=== PATIENT | female | born 1960 ===

== ENCOUNTER 2020-06-01 18:27 | Inpatient (IN) | payer OTHER, SELFPAY ==
--- NOTE | 2020-06-01 18:30 | ED.SOB ---
HPI - SOB/Dyspnea General Chief Complaint: General Medical Stated Complaint: COUGH,DIFF SWALLOWING Time Seen by Provider: 06/01/20 18:29 Source: EMS Mode of arrival: EMS Limitations: language barrier History of Present Illness HPI Narrative: cough for 3 days, concerned that she has been choking as well Related Data Home Medications Medication Instructions Recorded Confirmed acetaminophen 650 mg PO Q6H PRN 06/02/20 06/02/20 acetaminophen 975 mg PO TID 06/02/20 06/02/20 amlodipine 10 mg PO DAILY 06/02/20 06/02/20 baclofen 5 mg PO BID 06/02/20 06/02/20 bisacodyl 10 mg OK DAILY PRN 06/02/20 06/02/20 calcium acetate 1,334 mg PO TID 06/02/20 06/02/20 carvedilol [Coreg] 12.5 mg PO BID 06/02/20 06/02/20 cefazolin in 0.9% sod chloride 100 ml IV BID 06/02/20 06/02/20 dextrose [Glucose Gel] 15 g PO Q15M PRN 06/02/20 06/02/20 diphenhydramine HCl 25 mg PO TID PRN 06/02/20 06/02/20 famotidine 20 mg PO BID 06/02/20 06/02/20 fexofenadine 180 mg PO DAILY 06/02/20 06/02/20 furosemide [Lasix] 20 mg PO DAILY 06/02/20 06/02/20 glucagon 1 mg NEEDED 06/02/20 06/02/20 hydroxyzine HCl 25 mg PO TID 06/02/20 06/02/20 magnesium hydroxide [Milk of 10 ml PO DAILY PRN 06/02/20 06/02/20 Magnesia] melatonin 5 mg PO BEDTIME 06/02/20 06/02/20 omeprazole [Prilosec] 20 mg PO BID 06/02/20 06/02/20 ondansetron 4 mg PO Q6H PRN 06/02/20 06/02/20 polyethylene glycol 3350 [Miralax] 17 g PO DAILY 06/02/20 06/02/20 sennosides [senna] 8.6 mg PO DAILY PRN 06/02/20 06/02/20 sertraline [Zoloft] 50 mg PO DAILY 06/02/20 06/02/20 sodium bicarbonate 650 mg PO TID 06/02/20 06/02/20 sodium phosphates [Fleet Enema] 118 ml OK DAILY PRN 06/02/20 06/02/20 Allergies Allergy/AdvReac Type Severity Reaction Status Date / Time No Known Allergies Allergy Verified 06/01/20 19:04 Review of Systems Review of Systems: unable to obtain review of systems secondary to language barrier and patients baseline mentation Neurologic: Denies Sensory deficit (Neuro) [facility] Past Medical History Medical History (Updated 06/09/20 @ 15:18 by Kemar Amaral MD) Acute bullous dermatitis End stage renal failure untreated by renal replacement therapy Klebsiella sepsis 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 Social History Social History Household Members: Unknown / Unable to assess Housing: Unknown / Unable to assess Alcohol intake: unknown Smoking Status: Unknown if ever smoked Use of substances other than those prescribed or required for medical reasons: Unknown Currently Displaying Signs/Symptoms of Drug Intoxication Withdrawal: No Spiritual Healthcare Practices: unable to assess Hindu Healthcare Practices: unable to assess Cultural Healthcare Practices: unable to assess Advance Directives: No Advance Directives Information Provided: No Do you have thoughts of harming others: None Do you have a plan to hurt others: No Plan Recently lost weight without trying: Unsure service: No Current occupational status: unemployed Physical Exam Vital Signs: Vital Signs: Vital Signs Temp Pulse Resp BP Pulse Ox 06/01/20 18:58 98.6 F 104 H 18 147/75 H 100 Body Mass Index 58.6 Const: Other: female looking chronically ill much older than stated age right chest central line in place Limitations: behavioral limitations and language barrier HENMT: Head: Yes normal to inspection Ears: external ears normal General nose exam: Normal external nose present Mouth: Normal oral and palatal mucosa present and oropharynx normal Throat: Yes posterior oropharynx normal Eyes: General: appearance normal, both eyes and all related structures Neck: Other: supple Neck: Yes normal visual inspection Chest: Chest palpation & inspection: normal inspection of the chest Resp: Auscultation: clear to auscultation bilaterally Cardio: Jugular venous distension: no JVD Rate: regular rate Rhythm: regular rhythm Heart sounds: S1 normal heart sound present and S2 normal heart sound present GI: Inspection: Yes normal to inspection Palpation (GI): Soft to palpation, nontender and No hepatosplenomegaly present Auscultation: normal bowel sounds : General: Yes no CVA tenderness Back/Spine/Pelvis: Back: no CVA tenderness Skin: Other: diffuse excoriation and chronic skin changes Neuro: Cranial nerves: Yes CN's II-XII intact bilaterally Motor exam (neuro): 5/5 motor strength present throughout Sensory Exam: No Sensory deficit (Neuro) Extrem: General: Yes normal to inspection Psych: Appearance: grossly normal Course Course Course Narrative: patient signed out to dr. 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 will check labs, patient is a diabetic with renal failure and check xray and covid. Will likely dc home Lab Data Result diagrams: 06/09/20 08:25 06/08/20 16:47 Labs: Lab Results 06/01/20 06/02/20 06/02/20 Range/Units 20:19 00:42 00:42 WBC 10.1 (4.8-10.8) X10*3/uL RBC 3.97 L (4.20-5.50) X10*6/uL Hgb 11.0 L (12.0-16.0) g/dl Hct 38.1 (37-47) % MCV 96.0 (80-98) fL MCH 27.7 (27.0-33.0) pg MCHC 28.9 L (31.0-35.0) g/dl RDW 18.1 H (11.0-16.0) % Plt Count 346 (160-400) X10*3/uL MPV 11.9 (9.4-12.3) fL Immature Gran % (Auto) 4.2 H (0.0-0.4) % Neut % (Auto) 55.8 (45-73) % Lymph % (Auto) 16.5 L (20-40) % [place] % (Auto) 11.5 H (2-11) % Eos % (Auto) 11.0 H (0-4) % Baso % (Auto) 1.0 (0-2) % Lymph # (Auto) 1.7 (1.2-4.9) X10*3/uL [place] # (Auto) 1.2 (0.1-1.2) X10*3/uL Eos # (Auto) 1.1 H (0.0-0.4) X10*3/uL Baso # (Auto) 0.1 (0.0-0.2) X10*3/uL Abs Immat Gran (auto) 0.42 H (0.00-0.03) X10*3/uL Absolute Neuts (auto) 5.7 (2.0-8.3) X10*3/uL Absolute Nucleated RBC 0.000 (0.0-0.012) X10*3/uL Nucleated RBC % (auto) 0.0 (0.0-0.2) /100WBC ABG pH (7.35-7.45) ABG pCO2 (32-45) mmhg ABG pO2 (83-108) mmhg ABG HCO3 (22-26) mmol/l ABG O2 Saturation % ABG Base Excess Oxygen Given Sodium 145 (135-145) mmol/L Potassium 6.3 H* (3.3-5.1) mmol/l Chloride 118 H (96-108) mmol/L Carbon Dioxide < 5 L* (22-29) mmol/L Anion Gap TNP BUN 64 H (9-16) mg/dL Creatinine 6.16 H* (0.5-1.4) mg/dL Estim Creat Clear Calc 15.4 Estimated GFR 7 Random Glucose 98 (60-115) mg/dL Lactic Acid (0.5-2.0) mmol/L Calcium 8.2 L (8.4-10.2) mg/dL Magnesium Beta-Hydroxybutyrate/Acetoacetate mmol/L Coronavirus (PCR) (Negative) COVID-19 PCR NOT DETECTED (NOT DETECTED) SARS-CoV-2 IgG Ab (Negative) 06/02/20 06/02/20 06/02/20 Range/Units 02:04 02:04 02:18 WBC (4.8-10.8) X10*3/uL RBC (4.20-5.50) X10*6/uL Hgb (12.0-16.0) g/dl Hct (37-47) % MCV (80-98) fL MCH (27.0-33.0) pg MCHC (31.0-35.0) g/dl RDW (11.0-16.0) % Plt Count (160-400) X10*3/uL MPV (9.4-12.3) fL Immature Gran % (Auto) (0.0-0.4) % Neut % (Auto) (45-73) % Lymph % (Auto) (20-40) % [place] % (Auto) (2-11) % Eos % (Auto) (0-4) % Baso % (Auto) (0-2) % Lymph # (Auto) (1.2-4.9) X10*3/uL [place] # (Auto) (0.1-1.2) X10*3/uL Eos # (Auto) (0.0-0.4) X10*3/uL Baso # (Auto) (0.0-0.2) X10*3/uL Abs Immat Gran (auto) (0.00-0.03) X10*3/uL Absolute Neuts (auto) (2.0-8.3) X10*3/uL Absolute Nucleated RBC (0.0-0.012) X10*3/uL Nucleated RBC % (auto) (0.0-0.2) /100WBC ABG pH 7.13 L* (7.35-7.45) ABG pCO2 11 L* (32-45) mmhg ABG pO2 135 H (83-108) mmhg ABG HCO3 4 L (22-26) mmol/l ABG O2 Saturation 98.3 % ABG Base Excess -23.5 Oxygen Given ROOM AIR Sodium Cancelled (135-145) mmol/L Potassium Cancelled (3.3-5.1) mmol/l Chloride Cancelled (96-108) mmol/L Carbon Dioxide Cancelled (22-29) mmol/L Anion Gap Cancelled BUN Cancelled (9-16) mg/dL Creatinine Cancelled (0.5-1.4) mg/dL Estim Creat Clear Calc Cancelled Estimated GFR Cancelled Random Glucose Cancelled (60-115) mg/dL Lactic Acid 1.8 (0.5-2.0) mmol/L Calcium Cancelled (8.4-10.2) mg/dL Magnesium Cancelled Beta-Hydroxybutyrate/Acetoacetate mmol/L Coronavirus (PCR) (Negative) COVID-19 PCR (NOT DETECTED) SARS-CoV-2 IgG Ab (Negative) 06/02/20 06/02/20 06/02/20 Range/Units 03:00 03:00 04:44 WBC (4.8-10.8) X10*3/uL RBC (4.20-5.50) X10*6/uL Hgb (12.0-16.0) g/dl Hct (37-47) % MCV (80-98) fL MCH (27.0-33.0) pg MCHC (31.0-35.0) g/dl RDW (11.0-16.0) % Plt Count (160-400) X10*3/uL MPV (9.4-12.3) fL Immature Gran % (Auto) (0.0-0.4) % Neut % (Auto) (45-73) % Lymph % (Auto) (20-40) % [place] % (Auto) (2-11) % Eos % (Auto) (0-4) % Baso % (Auto) (0-2) % Lymph # (Auto) (1.2-4.9) X10*3/uL [place] # (Auto) (0.1-1.2) X10*3/uL Eos # (Auto) (0.0-0.4) X10*3/uL Baso # (Auto) (0.0-0.2) X10*3/uL Abs Immat Gran (auto) (0.00-0.03) X10*3/uL Absolute Neuts (auto) (2.0-8.3) X10*3/uL Absolute Nucleated RBC (0.0-0.012) X10*3/uL Nucleated RBC % (auto) (0.0-0.2) /100WBC ABG pH (7.35-7.45) ABG pCO2 (32-45) mmhg ABG pO2 (83-108) mmhg ABG HCO3 (22-26) mmol/l ABG O2 Saturation % ABG Base Excess Oxygen Given Sodium 146 H (135-145) mmol/L Potassium 6.5 H* (3.3-5.1) mmol/l Chloride 119 H (96-108) mmol/L Carbon Dioxide < 5 L* (22-29) mmol/L Anion Gap TNP BUN 66 H (9-16) mg/dL Creatinine 6.42 H* (0.5-1.4) mg/dL Estim Creat Clear Calc 14.8 Estimated GFR 7 Random Glucose 111 (60-115) mg/dL Lactic Acid (0.5-2.0) mmol/L Calcium 8.1 L (8.4-10.2) mg/dL Magnesium 2.3 Beta-Hydroxybutyrate/Acetoacetate 0.84 H mmol/L Coronavirus (PCR) (Negative) COVID-19 PCR (NOT DETECTED) SARS-CoV-2 IgG Ab Positive (Negative) 06/02/20 Range/Units 04:58 WBC (4.8-10.8) X10*3/uL RBC (4.20-5.50) X10*6/uL Hgb (12.0-16.0) g/dl Hct (37-47) % MCV (80-98) fL MCH (27.0-33.0) pg MCHC (31.0-35.0) g/dl RDW (11.0-16.0) % Plt Count (160-400) X10*3/uL MPV (9.4-12.3) fL Immature Gran % (Auto) (0.0-0.4) % Neut % (Auto) (45-73) % Lymph % (Auto) (20-40) % [place] % (Auto) (2-11) % Eos % (Auto) (0-4) % Baso % (Auto) (0-2) % Lymph # (Auto) (1.2-4.9) X10*3/uL [place] # (Auto) (0.1-1.2) X10*3/uL Eos # (Auto) (0.0-0.4) X10*3/uL Baso # (Auto) (0.0-0.2) X10*3/uL Abs Immat Gran (auto) (0.00-0.03) X10*3/uL Absolute Neuts (auto) (2.0-8.3) X10*3/uL Absolute Nucleated RBC (0.0-0.012) X10*3/uL Nucleated RBC % (auto) (0.0-0.2) /100WBC ABG pH (7.35-7.45) ABG pCO2 (32-45) mmhg ABG pO2 (83-108) mmhg ABG HCO3 (22-26) mmol/l ABG O2 Saturation % ABG Base Excess Oxygen Given Sodium (135-145) mmol/L Potassium (3.3-5.1) mmol/l Chloride (96-108) mmol/L Carbon Dioxide (22-29) mmol/L Anion Gap BUN (9-16) mg/dL Creatinine (0.5-1.4) mg/dL Estim Creat Clear Calc Estimated GFR Random Glucose (60-115) mg/dL Lactic Acid (0.5-2.0) mmol/L Calcium (8.4-10.2) mg/dL Magnesium Beta-Hydroxybutyrate/Acetoacetate mmol/L Coronavirus (PCR) POSITIVE A (Negative) COVID-19 PCR (NOT DETECTED) SARS-CoV-2 IgG Ab (Negative) Imaging Data Chest x-ray: Radiologist's impression: no infiltrate Discharge Plan Discharge Clinical Impression: COVID-19, Renal failure, Metabolic acidosis Patient Disposition: Admitted As Inpatient Interventions: Admission Worksheet (ED) Last Done: 06/02/20 06:30 Discharge Date/Time: 06/02/20 06:40
[2020-06-01 18:58] VITALS: BP 147/75; PULSE 104; RESP 18; TEMP 37; O2SAT 100; BMI 58.6
--- NOTE | 2020-06-01 19:05 | XR_ITS ---
EXAMINATION: XR CHEST CLINICAL INFORMATION: Cough COMPARISON: None TECHNIQUE: 2 views of the chest were obtained. FINDINGS: Indwelling right central venous catheter with tip projecting 1 cm below the cavoatrial junction. No pneumothorax. No focal pneumonia. No effusion. Heart and mediastinum within normal limits. No mass or adenopathy. No pulmonary edema. Normal gas pattern. No acute osseous finding. XR/XR chest 2V IMPRESSION: No acute cardiopulmonary process.
[2020-06-01 21:33] VITALS: BP 142/70; PULSE 98; RESP 18; O2SAT 100
--- NOTE | 2020-06-01 22:01 | PC.NURSE ---
water given per request
--- NOTE | 2020-06-01 22:40 | PC.NURSE ---
Pt started to actively vomit in hallway. Pt moved to room #21, cleaned up with fresh linens. Warm blankets applied to pt. Pt has a open wound on coccyx. pt awake and unable to speak Dive[place]. Pt In NAD, respirations easy, n/l. skin warm, moist. Pt has bass in place draining clear yellow urine. VS obtained. Pt awaiting further orders.
[2020-06-01 22:47] VITALS: BP 160/96; PULSE 110; RESP 18
[2020-06-02] VITALS (31 sets, daily range): BP systolic 107–182; BP diastolic 69–105; PULSE 98–152; RESP 13–30; TEMP 36.3–36.8; O2SAT 97–100; BMI 18.6
--- NOTE | 2020-06-02 | ECG_ITS ---
Test Reason : r/o ischemia Blood Pressure : / mmHG Vent. Rate : 111 BPM Atrial Rate : 111 BPM P-R Int : 110 ms QRS Dur : 066 ms QT Int : 342 ms P-R-T Axes : -08 063 259 degrees QTc Int : 465 ms Sinus tachycardia with short SD ST & T wave abnormality, consider inferior ischemia ST & T wave abnormality, consider anterolateral ischemia Abnormal ECG No previous ECGs available Referred By: Jake Terrazas Electronically Signed By:JIL CASTILLO MD
[2020-06-02 00:49] LABS: Basophils Absolute Auto 0.1 X10*3/uL (0.0-0.2); Eosinophils Absolute Auto 1.1 X10*3/uL (0.0-0.4); Hematocrit 38.1 % (37-47); Imm Gran Abs Auto 0.42 X10*3/uL (0.00-0.03); Imm Gran Pct Auto 4.2 % (0.0-0.4); Lymphocytes Absolute Auto 1.7 X10*3/uL (1.2-4.9); Lymphocytes Percent Auto 16.5 % (20-40); MANUAL DIFF FLAG NO; Mean Corpuscular HGB Conc 28.9 g/dl (31.0-35.0); Mean Corpuscular Hemoglobin 27.7 pg (27.0-33.0); Mean Platelet Volume 11.9 fL (9.4-12.3); Monocytes Absolute Auto 1.2 X10*3/uL (0.1-1.2); Monocytes Percent Auto 11.5 % (2-11); Neutrophils Absolute Auto 5.7 X10*3/uL (2.0-8.3); Neutrophils Percent Auto 55.8 % (45-73); Platelet Count 346 X10*3/uL (160-400); Red Blood Count 3.97 X10*6/uL (4.20-5.50); Red Cell Distribution Width 18.1 % (11.0-16.0); White Blood Count 10.1 X10*3/uL (4.8-10.8)
[2020-06-02 01:34] LABS: Blood Urea Nitrogen 64 mg/dL (9-16); Calcium 8.2 mg/dL (8.4-10.2); Carbon Dioxide < 5 mmol/L (22-29); Chloride 118 mmol/L (96-108); Creatinine Clr Calc Pharmacy 15.4; Estimated Glomerular Filt Rate 7; Glucose Random 98 mg/dL (60-115); Potassium 6.3 mmol/l (3.3-5.1); Sodium 145 mmol/L (135-145)
[2020-06-02 02:22] LABS: Pt Ventilation O2% ROOM AIR
[2020-06-02 02:31] LABS: Base Excess ABG -23.5; HCO3 ABG 4 mmol/l (22-26); PO2 ABG 135 mmhg (83-108)
[2020-06-02 02:32] LABS: Oxygen Saturation ABG 98.3 %
[2020-06-02 02:36] LABS: ABG PCO2 11 mmhg (32-45); pH ABG 7.13 (7.35-7.45)
[2020-06-02 02:45] LABS: Lactic Acid 1.8 mmol/L (0.5-2.0)
--- NOTE | 2020-06-02 03:16 | ED.GENADULT ---
HPI - General Adult General Chief complaint: General Medical Stated complaint: COUGH,DIFF SWALLOWING Time Seen by Provider: 06/01/20 18:29 Source: EMS Mode of arrival: EMS Limitations: language barrier Related Data Allergies Allergy/AdvReac Type Severity Reaction Status Date / Time No Known Allergies Allergy Verified 06/01/20 19:04 Review of Systems Neurologic: Denies Sensory deficit (Neuro) [facility] Social History Social History Advance Directives: No Advance Directives Information Provided: No Physical Exam Vital Signs: Vital Signs: Vital Signs Temp Pulse Resp BP Pulse Ox 06/01/20 22:47 110 H 18 160/96 H 06/01/20 21:33 98 18 142/70 H 100 06/01/20 18:58 98.6 F 104 H 18 147/75 H 100 Body Mass Index 58.6 Neuro: Sensory Exam: No Sensory deficit (Neuro) Medical Decision Making MDM Narrative Medical decision making narrative: Patient 59 years old with a history of CVA. History of Sanya Kemal syndrome with carbamazepine. Patient presented today with increasing cough. Possible upper respiratory symptoms. Patient of note had previous infection with coronavirus. Chest x-ray did not show any focal infiltrate. Patient's electrolytes returned a very low CO2 of 5. any BG was done. It showed a pH of 7.13 with a pCO2 of 11. these findings are consistent with having severe metabolic acidosis. Will start patient on a bicarb drip. Patient's lactate was 1.8 More likely patient has acidosis is secondary to the renal insufficiency. Patient's case was discussed with Nephrology. Agree with plan of the bicarb drip. Will consult on the case. Patient to be admitted. Patient's potassium was 6.3. Given insulin, glucose, calcium gluconate. Patient's 2nd EKG electrolytes showed a potassium that is approximately the same. Lab Data Result diagrams: 06/02/20 00:42 06/02/20 03:00 Labs: Lab Results 06/02/20 06/02/20 06/02/20 Range/Units 00:42 00:42 02:04 WBC 10.1 (4.8-10.8) X10*3/uL RBC 3.97 L (4.20-5.50) X10*6/uL Hgb 11.0 L (12.0-16.0) g/dl Hct 38.1 (37-47) % MCV 96.0 (80-98) fL MCH 27.7 (27.0-33.0) pg MCHC 28.9 L (31.0-35.0) g/dl RDW 18.1 H (11.0-16.0) % Plt Count 346 (160-400) X10*3/uL MPV 11.9 (9.4-12.3) fL Immature Gran % (Auto) 4.2 H (0.0-0.4) % Neut % (Auto) 55.8 (45-73) % Lymph % (Auto) 16.5 L (20-40) % [place] % (Auto) 11.5 H (2-11) % Eos % (Auto) 11.0 H (0-4) % Baso % (Auto) 1.0 (0-2) % Lymph # (Auto) 1.7 (1.2-4.9) X10*3/uL [place] # (Auto) 1.2 (0.1-1.2) X10*3/uL Eos # (Auto) 1.1 H (0.0-0.4) X10*3/uL Baso # (Auto) 0.1 (0.0-0.2) X10*3/uL Abs Immat Gran (auto) 0.42 H (0.00-0.03) X10*3/uL Absolute Neuts (auto) 5.7 (2.0-8.3) X10*3/uL Absolute Nucleated RBC 0.000 (0.0-0.012) X10*3/uL Nucleated RBC % (auto) 0.0 (0.0-0.2) /100WBC ABG pH (7.35-7.45) ABG pCO2 (32-45) mmhg ABG pO2 (83-108) mmhg ABG HCO3 (22-26) mmol/l ABG O2 Saturation % ABG Base Excess Oxygen Given Sodium 145 Cancelled (135-145) mmol/L Potassium 6.3 H* Cancelled (3.3-5.1) mmol/l Chloride 118 H Cancelled (96-108) mmol/L Carbon Dioxide < 5 L* Cancelled (22-29) mmol/L Anion Gap Cancelled BUN 64 H Cancelled (9-16) mg/dL Creatinine 6.16 H* Cancelled (0.5-1.4) mg/dL Estim Creat Clear Calc 15.4 Cancelled Estimated GFR 7 Cancelled Random Glucose 98 Cancelled (60-115) mg/dL Lactic Acid (0.5-2.0) mmol/L Calcium 8.2 L Cancelled (8.4-10.2) mg/dL Magnesium Cancelled 06/02/20 06/02/20 06/02/20 Range/Units 02:04 02:18 03:00 WBC (4.8-10.8) X10*3/uL RBC (4.20-5.50) X10*6/uL Hgb (12.0-16.0) g/dl Hct (37-47) % MCV (80-98) fL MCH (27.0-33.0) pg MCHC (31.0-35.0) g/dl RDW (11.0-16.0) % Plt Count (160-400) X10*3/uL MPV (9.4-12.3) fL Immature Gran % (Auto) (0.0-0.4) % Neut % (Auto) (45-73) % Lymph % (Auto) (20-40) % [place] % (Auto) (2-11) % Eos % (Auto) (0-4) % Baso % (Auto) (0-2) % Lymph # (Auto) (1.2-4.9) X10*3/uL [place] # (Auto) (0.1-1.2) X10*3/uL Eos # (Auto) (0.0-0.4) X10*3/uL Baso # (Auto) (0.0-0.2) X10*3/uL Abs Immat Gran (auto) (0.00-0.03) X10*3/uL Absolute Neuts (auto) (2.0-8.3) X10*3/uL Absolute Nucleated RBC (0.0-0.012) X10*3/uL Nucleated RBC % (auto) (0.0-0.2) /100WBC ABG pH 7.13 L* (7.35-7.45) ABG pCO2 11 L* (32-45) mmhg ABG pO2 135 H (83-108) mmhg ABG HCO3 4 L (22-26) mmol/l ABG O2 Saturation 98.3 % ABG Base Excess -23.5 Oxygen Given ROOM AIR Sodium 146 H (135-145) mmol/L Potassium 6.5 H* (3.3-5.1) mmol/l Chloride 119 H (96-108) mmol/L Carbon Dioxide < 5 L* (22-29) mmol/L Anion Gap BUN 66 H (9-16) mg/dL Creatinine 6.42 H* (0.5-1.4) mg/dL Estim Creat Clear Calc 14.8 Estimated GFR 7 Random Glucose 111 (60-115) mg/dL Lactic Acid 1.8 (0.5-2.0) mmol/L Calcium 8.1 L (8.4-10.2) mg/dL Magnesium 2.3 Critical Care Time Critical Care Time Total Critical Care Time: 40 Attestation: I have personally provided 40 minutes of critical care time exclusive of time spent on separately billable procedures. Time includes review of lab data, radiology results, discussion with consultants, and monitoring for potential decompensation. Interventions were performed as documented above
[2020-06-02] MEDS: Insulin Regular, Human 100 UNIT/ML 3 ML VIAL IVPUSH (03:37)
[2020-06-02] MEDS: Calcium Gluconate/NaCl,Iso-Osm 1 GM/50 ML PLAST..BAG IV (03:40)
[2020-06-02] MEDS: Sodium Bicarbonate 8.4% 150 MEQ in Dextrose 5 % 850 ML 50 MEQ IV (03:42)
[2020-06-02 03:49] LABS: Blood Urea Nitrogen 66 mg/dL (9-16); Calcium 8.1 mg/dL (8.4-10.2); Carbon Dioxide < 5 mmol/L (22-29); Chloride 119 mmol/L (96-108); Creatinine Clr Calc Pharmacy 14.8; Estimated Glomerular Filt Rate 7; Glucose Random 111 mg/dL (60-115); Magnesium 2.3 mg/dL (1.6-2.6); Potassium 6.5 mmol/l (3.3-5.1); Sodium 146 mmol/L (135-145)
[2020-06-02] MEDS: Sodium Polystyrene Sulfon/Sorb 15 GM/60 ML ORAL.SUSP 60 GM PO (03:49)
--- NOTE | 2020-06-02 03:58 | PC.NURSE ---
patient just vomited up kayexalate. Dr Morales aware. Requested anti-emetic.
[2020-06-02] MEDS: ondansetron HCL 4 MG/2 ML VIAL IVPUSH ×2 (04:01→05:41)
--- NOTE | 2020-06-02 04:54 | ED.GENADULT ---
HPI - General Adult General Chief complaint: General Medical Stated complaint: COUGH,DIFF SWALLOWING Time Seen by Provider: 06/01/20 18:29 Source: EMS Mode of arrival: EMS Limitations: language barrier Related Data Home Medications Medication Instructions Recorded Confirmed acetaminophen 650 mg PO Q6H PRN 06/02/20 06/02/20 acetaminophen 975 mg PO TID 06/02/20 06/02/20 amlodipine 10 mg PO DAILY 06/02/20 06/02/20 baclofen 5 mg PO BID 06/02/20 06/02/[address] DAILY PRN 06/02/20 06/02/20 calcium acetate 1,334 mg PO TID 06/02/20 06/02/20 carvedilol [Coreg] 12.5 mg PO BID 06/02/20 06/02/20 cefazolin in 0.9% sod chloride 100 ml IV BID 06/02/20 06/02/20 dextrose [Glucose Gel] 15 g PO Q15M PRN 06/02/20 06/02/20 diphenhydramine HCl 25 mg PO TID PRN 06/02/20 06/02/20 famotidine 20 mg PO BID 06/02/20 06/02/20 fexofenadine 180 mg PO DAILY 06/02/20 06/02/20 furosemide [Lasix] 20 mg PO DAILY 06/02/20 06/02/20 glucagon 1 mg NEEDED 06/02/20 06/02/20 hydroxyzine HCl 25 mg PO TID 06/02/20 06/02/20 magnesium hydroxide [Milk of 10 ml PO DAILY PRN 06/02/20 06/02/20 Magnesia] melatonin 5 mg PO BEDTIME 06/02/20 06/02/20 omeprazole [Prilosec] 20 mg PO BID 06/02/20 06/02/20 ondansetron 4 mg PO Q6H PRN 06/02/20 06/02/20 polyethylene glycol 3350 [Miralax] 17 g PO DAILY 06/02/20 06/02/20 sennosides [senna] 8.6 mg PO DAILY PRN 06/02/20 06/02/20 sertraline [Zoloft] 50 mg PO DAILY 06/02/20 06/02/20 sodium bicarbonate 650 mg PO TID 06/02/20 06/02/20 sodium phosphates [Fleet Enema] [address] DAILY PRN 06/02/20 06/02/20 Allergies Allergy/AdvReac Type Severity Reaction Status Date / Time No Known Allergies Allergy Verified 06/01/20 19:04 Review of Systems Neurologic: Denies Sensory deficit (Neuro) [facility] Social History Social History Alcohol intake: unknown Smoking Status: Unknown if ever smoked Use of substances other than those prescribed or required for medical reasons: Unknown Advance Directives: No Advance Directives Information Provided: No Physical Exam Vital Signs: Vital Signs: Vital Signs Temp Pulse Resp BP Pulse Ox 06/02/20 04:49 97.4 F 140 H 25 H 137/85 100 06/02/20 03:54 132 H 30 H 100 06/02/20 02:00 128 H 28 H 141/81 H 97 06/01/20 22:47 110 H 18 160/96 H 06/01/20 21:33 98 18 142/70 H 100 06/01/20 18:58 98.6 F 104 H 18 147/75 H 100 Body Mass Index 58.6 Neuro: Sensory Exam: No Sensory deficit (Neuro) Medical Decision Making MDM Narrative Medical decision making narrative: Patient has an elevated respiratory rate. Likely caused by the metabolic acidosis. Patient's heart rate is still in the 131 40s range. EKG showed a sinus rhythm heart rate was 140. There is no PT waves noted. These findings was relayed to the hospitalist geoffrey who felt patient might be better served by going to the intensive care unit given the acute renal insufficiency the elevated heart rate a general appearance of the patient. The finding was then discussed with sill worker. Media Analyst feel comfortable with accepting patient. At this time did not feel patient is septic. Patient's lactate is 1.8 most likely the cause of patient's increased respiratory rate is still secondary to renal insufficiency. Patient to be admitted To the intensive care unit. Lab Data Result diagrams: 06/02/20 00:42 06/02/20 03:00 Labs: Lab Results 06/02/20 06/02/20 06/02/20 Range/Units 00:42 00:42 02:04 WBC 10.1 (4.8-10.8) X10*3/uL RBC 3.97 L (4.20-5.50) X10*6/uL Hgb 11.0 L (12.0-16.0) g/dl Hct 38.1 (37-47) % MCV 96.0 (80-98) fL MCH 27.7 (27.0-33.0) pg MCHC 28.9 L (31.0-35.0) g/dl RDW 18.1 H (11.0-16.0) % Plt Count 346 (160-400) X10*3/uL MPV 11.9 (9.4-12.3) fL Immature Gran % (Auto) 4.2 H (0.0-0.4) % Neut % (Auto) 55.8 (45-73) % Lymph % (Auto) 16.5 L (20-40) % [place] % (Auto) 11.5 H (2-11) % Eos % (Auto) 11.0 H (0-4) % Baso % (Auto) 1.0 (0-2) % Lymph # (Auto) 1.7 (1.2-4.9) X10*3/uL [place] # (Auto) 1.2 (0.1-1.2) X10*3/uL Eos # (Auto) 1.1 H (0.0-0.4) X10*3/uL Baso # (Auto) 0.1 (0.0-0.2) X10*3/uL Abs Immat Gran (auto) 0.42 H (0.00-0.03) X10*3/uL Absolute Neuts (auto) 5.7 (2.0-8.3) X10*3/uL Absolute Nucleated RBC 0.000 (0.0-0.012) X10*3/uL Nucleated RBC % (auto) 0.0 (0.0-0.2) /100WBC ABG pH (7.35-7.45) ABG pCO2 (32-45) mmhg ABG pO2 (83-108) mmhg ABG HCO3 (22-26) mmol/l ABG O2 Saturation % ABG Base Excess Oxygen Given Sodium 145 Cancelled (135-145) mmol/L Potassium 6.3 H* Cancelled (3.3-5.1) mmol/l Chloride 118 H Cancelled (96-108) mmol/L Carbon Dioxide < 5 L* Cancelled (22-29) mmol/L Anion Gap TNP Cancelled BUN 64 H Cancelled (9-16) mg/dL Creatinine 6.16 H* Cancelled (0.5-1.4) mg/dL Estim Creat Clear Calc 15.4 Cancelled Estimated GFR 7 Cancelled Random Glucose 98 Cancelled (60-115) mg/dL Lactic Acid (0.5-2.0) mmol/L Calcium 8.2 L Cancelled (8.4-10.2) mg/dL Magnesium Cancelled 06/02/20 06/02/20 06/02/20 Range/Units 02:04 02:18 03:00 WBC (4.8-10.8) X10*3/uL RBC (4.20-5.50) X10*6/uL Hgb (12.0-16.0) g/dl Hct (37-47) % MCV (80-98) fL MCH (27.0-33.0) pg MCHC (31.0-35.0) g/dl RDW (11.0-16.0) % Plt Count (160-400) X10*3/uL MPV (9.4-12.3) fL Immature Gran % (Auto) (0.0-0.4) % Neut % (Auto) (45-73) % Lymph % (Auto) (20-40) % [place] % (Auto) (2-11) % Eos % (Auto) (0-4) % Baso % (Auto) (0-2) % Lymph # (Auto) (1.2-4.9) X10*3/uL [place] # (Auto) (0.1-1.2) X10*3/uL Eos # (Auto) (0.0-0.4) X10*3/uL Baso # (Auto) (0.0-0.2) X10*3/uL Abs Immat Gran (auto) (0.00-0.03) X10*3/uL Absolute Neuts (auto) (2.0-8.3) X10*3/uL Absolute Nucleated RBC (0.0-0.012) X10*3/uL Nucleated RBC % (auto) (0.0-0.2) /100WBC ABG pH 7.13 L* (7.35-7.45) ABG pCO2 11 L* (32-45) mmhg ABG pO2 135 H (83-108) mmhg ABG HCO3 4 L (22-26) mmol/l ABG O2 Saturation 98.3 % ABG Base Excess -23.5 Oxygen Given ROOM AIR Sodium 146 H (135-145) mmol/L Potassium 6.5 H* (3.3-5.1) mmol/l Chloride 119 H (96-108) mmol/L Carbon Dioxide < 5 L* (22-29) mmol/L Anion Gap TNP BUN 66 H (9-16) mg/dL Creatinine 6.42 H* (0.5-1.4) mg/dL Estim Creat Clear Calc 14.8 Estimated GFR 7 Random Glucose 111 (60-115) mg/dL Lactic Acid 1.8 (0.5-2.0) mmol/L Calcium 8.1 L (8.4-10.2) mg/dL Magnesium 2.3 Discharge Plan Discharge Prescriptions: No Action acetaminophen 325 mg Tablet 975 mg PO TID RF: 0 acetaminophen 325 mg Tablet 650 mg PO Q6H PRN (Reason: Pain) RF: 0 carvedilol [Coreg] 12.5 mg Tablet 12.5 mg PO BID RF: 0 dextrose [Glucose Gel] 40 % Gel 15 g PO Q15M PRN (Reason: Hypoglycemia) RF: 0 fexofenadine 180 mg Tablet 180 mg PO DAILY RF: 0 famotidine 20 mg Tablet 20 mg PO BID RF: 0 magnesium hydroxide [Milk of Magnesia] 400 mg/5 mL Suspension 10 ml PO DAILY PRN (Reason: Constipation) RF: 0 sodium bicarbonate 650 mg Tablet 650 mg PO TID RF: 0 amlodipine 10 mg Tablet 10 mg PO DAILY RF: 0 bisacodyl 10 mg Suppository [address] DAILY PRN (Reason: Constipation) RF: 0 diphenhydramine HCl 25 mg Capsule 25 mg PO TID PRN (Reason: Itching) RF: 0 Fleet Enema 19-7 gram/118 mL Enema [address] DAILY PRN (Reason: Constipation) RF: 0 omeprazole [Prilosec] 20 mg Capsule,Delayed Release(Dr/Ec) 20 mg PO BID RF: 0 hydroxyzine HCl 25 mg Tablet 25 mg PO TID RF: 0 furosemide [Lasix] 20 mg Tablet 20 mg PO DAILY RF: 0 polyethylene glycol 3350 [Miralax] 17 gram/dose Powder 17 g PO DAILY RF: 0 ondansetron 4 mg Tablet,Disintegrating 4 mg PO Q6H PRN (Reason: Nausea) RF: 0 sertraline [Zoloft] 50 mg Tablet 50 mg PO DAILY RF: 0 cefazolin in 0.9% sod chloride 2 gram/100 mL Solution 100 ml IV BID RF: 0 melatonin 5 mg Capsule 5 mg PO BEDTIME RF: 0 baclofen 5 mg Tablet 5 mg PO BID RF: 0 calcium acetate 667 mg Tablet 1,334 mg PO TID RF: 0 glucagon 1 mg Kit 1 mg NEEDED RF: 0 sennosides [senna] 8.6 mg Tablet 8.6 mg PO DAILY PRN (Reason: Constipation) RF: 0
[2020-06-02] MEDS: Sodium Bicarbonate 8.4% 50 MEQ/50 ML VIAL IV (05:41)
[2020-06-02] MEDS: Metoprolol Tartrate 5 MG/5 ML VIAL IVPUSH (05:45)
--- NOTE | 2020-06-02 05:48 | PM.CCHP ---
History of Present Illness Date of Service: 06/02/20 Chief Complaint: ACUTE KIDNEY INJURY; HYPERKALEMIA AND METABOLIC ACIDOSIS HPI: This is a 51-year-old female who is originally from [facility], communication is limited due to language barrier and the lack of an customer care coordinator at this point. 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 It is unclear to me how long she was at the rehab, she came to the emergency room with complaints of cough today and even though she was found to be overall hemodynamically stable with exception of a heart rate of 104, no fever or hypotension, hypoxia; her workup in the ER reveal significant renal failure with a creatinine of 6.1 and potassium 6.3, carbon dioxide less than 5, her blood gas reveals significant metabolic acidosis with pH of 7.1, pCO2 of 11, bicarb of 4. The EKG did not reveal any peaked T-waves. Patient did receive calcium gluconate, insulin, an amp of D50 and Kayexalate however this last she did not tolerate and vomited it out. Nephrology was contacted, repeat laboratories show worsening of her potassium at 6.5 and renal function of 6.42. Chest x-ray did not show any infiltrate. Lactic acid 1.8 Patient does have a central line (right subclavian) from previous admission to a hospital. She does appear tremor is and cold however she is not able to express her complaints at this point. We are awaiting her COVID test result; patient will be admitted to the ICU. ROS: Unable to obtain due to language barrier. PAST MEDICAL HISTORY: Recent admission for Vivas-Kemal syndrome [facility] COVID infection with recovery and negative test per [facility] report CVA without known deficits Hypertension GERD Constipation Leg edema Insomnia Depression Reported cope with infection in the past Past Surgical History: Unknown Family history: Unknown Social History: Unknown current living situation, unable to obtain smoking, drug use or alcohol history. CODE STATUS: FULL CODE Baseline Functionality: Unknown Contacts or HCP: Unknown Allergies: Carbamazepine (Sanya Kemal syndrome) Home Medications: acetaminophen 650 mg PO Q6H PRN acetaminophen 975 mg PO TID amlodipine 10 mg PO DAILY baclofen 5 mg PO BID 06/02/20 bisacodyl 10 mg LA DAILY PRN calcium acetate 1,334 mg PO TID carvedilol [Coreg] 12.5 mg PO BID cefazolin in 0.9% sod chloride 100 ml IV BID dextrose [Glucose Gel] 15 g PO Q15M PRN diphenhydramine HCl 25 mg PO TID PRN famotidine 20 mg PO BID 06/02/20 06/02/20 fexofenadine 180 mg PO DAILY 06/02/20 furosemide [Lasix] 20 mg PO DAILY glucagon 1 mg NEEDED hydroxyzine HCl 25 mg PO TID magnesium hydroxide [Milk of 10 ml PO DAILY PRN Magnesia] melatonin 5 mg PO BEDTIME omeprazole [Prilosec] 20 mg PO BID ondansetron 4 mg PO Q6H PRN polyethylene glycol 3350 [Miralax] 17 g PO DAILY sennosides [senna] 8.6 mg PO DAILY PRN sertraline [Zoloft] 50 mg PO DAILY sodium bicarbonate 650 mg PO TID sodium phosphates [Fleet Enema] 118 ml LA PHYSICAL EXAM: VS: Current blood pressure 137/85, heart rate 140, respiration rate 25, O2 sat 100% on room air, temperature 97.4?. ?General: Alert oriented x3 no acute distress. Speaking in her [place] language. ?Skin: Right subclavian central line catheter, dual-lumen in place with clean, dry intact surroundings. Brittle nails and hair, dry skin with scaly, geographical, diffuse hypopigmented lesions throughout the body lower extremities and torso more than upper extremities, no open lesions. Rogers catheter in place. ?HEENT: Head is normocephalic, atraumatic, pupils equal round reactive to light accommodation bilaterally. Extraocular movements appear intact. Buccal mucosa is dry, Neck is supple without lymphadenopathy. ?Cardiac: clears wants to, tachycardic about 130 beats per minute. No murmurs, rubs or gallops. ?Pulmonary: Clear to auscultation, no wheezes, rales or rhonchi. ?Abdomen: Protuberant, positive bowel sounds in all 4 quadrants. Soft, nontender, no rebound or guarding. ?Musculoskeletal: Moving all 4 extremities upon request a major joints, there is no crepitus or tenderness. The strength is 5/5 bilaterally and throughout all 4 extremities. Gait not assessed at this point. ?Neurologic: As above, cranial nerves 2-12 are grossly intact. No focal deficits noted. ?Motor strength as above. ?Vascular: 2+ pulses upper and lower extremities distally. ? SIGNIFICANT LABORATORY DATA: Reviewed as above REVIEW OF IMAGES: Chest x-ray, No acute cardiopulmonary process. EKG REVIEW: Image not available, per monitor, sinus tachycardia 140 beats per minute. A 12 lead view, there is no ST elevations or depressions. No peaked T-waves. ASSESSMENT AND PLAN: 1. Acute kidney injury likely due to nephrotoxic including Lasix possible ATN 2. Hyperkalemia due to the above 3. Dehydration appears to have had poor p.o. intake 4. Reactive sinus tachycardia perhaps due to metabolic derangement and lack of beta-dale 5. Stable hypertension 6. 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 Severe metabolic acidosis 8. COVID-19 positive will discuss with Dr Terrazas if full treatment is granted as pt reporterly had it and recovered. Admit to ICU, I I and O?s, albuterol 10 mg neb, Zofran, Kayexalate p.o. if tolerated, continue with bicarb drip, will suggest at least 100 cc an hour infusion with a 1 AMP load, hold all p.o. medications for now, will give her Lopressor x 1 as some concern the patient may have tachycardia due to beta-dale withdrawal, will confirm home medications. Nephrology was consulted, if the patient's labs from 6:00 a.m. or later continue to worsen, she may require dialysis and placement of a power central line. Repeat CBC, Chem 7, blood gas, add ferritin, ddimmer and CRP. GI PROPHYLAXIS: Protonix IV DVT PROPHYLAXIS: Heparin subcu b.i.d. Critical care time used for critical evaluation of this patient, diagnosis, treatment and coordination of care, review her records and documentation TOTAL CRITICAL CARE TIME 90 MIN . Patient's care was discussed in detail with Dr. Terrazas. He is aware of all the above as well as the plan of care for this patient. Review of Systems Neurologic: Denies Sensory deficit (Neuro) [facility] Social History Social History Household Members: Unknown / Unable to assess Housing: Unknown / Unable to assess Alcohol intake: unknown Smoking Status: Unknown if ever smoked Use of substances other than those prescribed or required for medical reasons: Unknown Currently Displaying Signs/Symptoms of Drug Intoxication Withdrawal: No Spiritual Healthcare Practices: unable to assess Caodaism Healthcare Practices: unable to assess Cultural Healthcare Practices: unable to assess Advance Directives: No Advance Directives Information Provided: No Do you have thoughts of harming others: None Do you have a plan to hurt others: No Plan Recently lost weight without trying: Unsure service: No Current occupational status: unemployed Meds Allergies Allergy/AdvReac Type Severity Reaction Status Date / Time No Known Allergies Allergy Verified 06/01/20 19:04 Home Medications Medication Instructions Recorded Confirmed Type acetaminophen 650 mg PO Q6H PRN 06/02/20 06/02/20 History acetaminophen 975 mg PO TID 06/02/20 06/02/20 History amlodipine 10 mg PO DAILY 06/02/20 06/02/20 History baclofen 5 mg PO BID 06/02/20 06/02/20 History bisacodyl 10 mg LA DAILY PRN 06/02/20 06/02/20 History calcium acetate 1,334 mg PO TID 06/02/20 06/02/20 History carvedilol [Coreg] 12.5 mg PO BID 06/02/20 06/02/20 History cefazolin in 0.9% sod chloride 100 ml IV BID 06/02/20 06/02/20 History dextrose [Glucose Gel] 15 g PO Q15M PRN 06/02/20 06/02/20 History diphenhydramine HCl 25 mg PO TID PRN 06/02/20 06/02/20 History famotidine 20 mg PO BID 06/02/20 06/02/20 History fexofenadine 180 mg PO DAILY 06/02/20 06/02/20 History furosemide [Lasix] 20 mg PO DAILY 06/02/20 06/02/20 History glucagon 1 mg NEEDED 06/02/20 06/02/20 History hydroxyzine HCl 25 mg PO TID 06/02/20 06/02/20 History magnesium hydroxide [Milk of 10 ml PO DAILY PRN 06/02/20 06/02/20 History Magnesia] melatonin 5 mg PO BEDTIME 06/02/20 06/02/20 History omeprazole [Prilosec] 20 mg PO BID 06/02/20 06/02/20 History ondansetron 4 mg PO Q6H PRN 06/02/20 06/02/20 History polyethylene glycol 3350 [Miralax] 17 g PO DAILY 06/02/20 06/02/20 History sennosides [senna] 8.6 mg PO DAILY PRN 06/02/20 06/02/20 History sertraline [Zoloft] 50 mg PO DAILY 06/02/20 06/02/20 History sodium bicarbonate 650 mg PO TID 06/02/20 06/02/20 History sodium phosphates [Fleet Enema] 118 ml LA DAILY PRN 06/02/20 06/02/20 History Physical Exam Vital Signs: Vital Signs: Vital Signs Temp Pulse Resp BP Pulse Ox 06/02/20 04:49 97.4 F 140 H 25 H 137/85 100 06/02/20 03:54 132 H 30 H 100 06/02/20 02:00 128 H 28 H 141/81 H 97 06/01/20 22:47 110 H 18 160/96 H 06/01/20 21:33 98 18 142/70 H 100 06/01/20 18:58 98.6 F 104 H 18 147/75 H 100 Body Mass Index 58.6 Neuro: Sensory Exam: No Sensory deficit (Neuro) Results Labs Labs: Laboratory Tests 06/02/20 06/02/20 06/02/20 00:42 00:42 02:04 WBC 10.1 RBC 3.97 L Hgb 11.0 L Hct 38.1 MCV 96.0 MCH 27.7 MCHC 28.9 L RDW 18.1 H Plt Count 346 MPV 11.9 Immature Gran % (Auto) 4.2 H Neut % (Auto) 55.8 Lymph % (Auto) 16.5 L [place] % (Auto) 11.5 H Eos % (Auto) 11.0 H Baso % (Auto) 1.0 Lymph # (Auto) 1.7 [place] # (Auto) 1.2 Eos # (Auto) 1.1 H Baso # (Auto) 0.1 Abs Immat Gran (auto) 0.42 H Absolute Neuts (auto) 5.7 Absolute Nucleated RBC 0.000 Nucleated RBC % (auto) 0.0 ABG pH ABG pCO2 ABG pO2 ABG HCO3 ABG O2 Saturation ABG Base Excess Oxygen Given Sodium 145 Cancelled Potassium 6.3 H* Cancelled Chloride 118 H Cancelled Carbon Dioxide < 5 L* Cancelled Anion Gap TNP Cancelled BUN 64 H Cancelled Creatinine 6.16 H* Cancelled Estim Creat Clear Calc 15.4 Cancelled Estimated GFR 7 Cancelled Random Glucose 98 Cancelled Lactic Acid Calcium 8.2 L Cancelled Magnesium Cancelled 06/02/20 06/02/20 06/02/20 02:04 02:18 03:00 WBC RBC Hgb Hct MCV MCH MCHC RDW Plt Count MPV Immature Gran % (Auto) Neut % (Auto) Lymph % (Auto) [place] % (Auto) Eos % (Auto) Baso % (Auto) Lymph # (Auto) [place] # (Auto) Eos # (Auto) Baso # (Auto) Abs Immat Gran (auto) Absolute Neuts (auto) Absolute Nucleated RBC Nucleated RBC % (auto) ABG pH 7.13 L* ABG pCO2 11 L* ABG pO2 135 H ABG HCO3 4 L ABG O2 Saturation 98.3 ABG Base Excess -23.5 Oxygen Given ROOM AIR Sodium 146 H Potassium 6.5 H* Chloride 119 H Carbon Dioxide < 5 L* Anion Gap TNP BUN 66 H Creatinine 6.42 H* Estim Creat Clear Calc 14.8 Estimated GFR 7 Random Glucose 111 Lactic Acid 1.8 Calcium 8.1 L Magnesium 2.3 Critical Care Time Critical Care Time (minutes): 90
[2020-06-02 06:06] LABS: SARS COV2 PCR INHOUSE POSITIVE (Negative)
--- NOTE | 2020-06-02 06:18 | PC.NURSE ---
Report given to ICU, RN. Patient is ready to transfer.
--- NOTE | 2020-06-02 06:19 | PC.NURSE ---
pt has a redness wound sore on left butt with mild blood. cleaned with ns and covered with non-adhensive dsg. management retail intern made barber of.
[2020-06-02] MEDS: Heparin Sodium,Porcine 5,000 UNIT/ML VIAL 5000 UNIT SUBCUT ×2 (07:09→17:21)
[2020-06-02] MEDS: Pantoprazole Sodium 40 MG/10 ML VIAL IVPUSH (07:10)
[2020-06-02] MEDS: 0.9 % Sodium Chloride Flush 3 ML SYRINGE IVFLUSH ×2 (07:11→17:21)
[2020-06-02 08:30] LABS: Alanine Aminotransferase < 6 U/L (0-31); Albumin Level 3.1 g/dL (3.5-5.0); Alkaline Phosphatase 140 U/L (39-117); Anion Gap 34 (12-20); Aspartate Amino Transferase 13 U/L (5-31); Bilirubin Total 0.3 mg/dL (0.0-1.0); Blood Urea Nitrogen 66 mg/dL (9-16); C Reactive Protein 1.13 mg/dL (< or = 0.50); Calcium 8.4 mg/dL (8.4-10.2); Carbon Dioxide 7 mmol/L (22-29); Chloride 119 mmol/L (96-108); Creatinine Clr Calc Pharmacy 14.6; Estimated Glomerular Filt Rate 7; Glucose Random 132 mg/dL (60-115); Potassium 4.6 mmol/l (3.3-5.1); Sodium 155 mmol/L (135-145); Total Protein 8.7 g/dL (6.5-8.0)
[2020-06-02 09:14] LABS: Ferritin 3446 ng/mL (10-250)
[2020-06-02 09:28] LABS: D Dimer 646 NG/ML
[2020-06-02 09:32] LABS: SARS COV2 IgG Positive (Negative)
[2020-06-02] MEDS: Sodium Bicarbonate 8.4% 50 MEQ/50 ML SYRINGE IVPUSH (09:44)
--- NOTE | 2020-06-02 10:32 | PC.NURSE ---
PT TO ICU AT APPROX 0600 FROM ED. PT BENGALI SPEAKING ONLY, UNABLE TO USE COMPLIANCE MONITOR FOR ADMISSION D/T COVID+. PT CALM/COOPERATIVE AT THIS TIME. AFEBRILE. NSR/?JUNCTIONAL AT TIMES ON TELE, HR 110-140s, SBP 140s. EKG OBTAINED PER MD ORDER, ?ST CHANGES. DOUBLE LUMEN [place]O TO R SUBCLAVIAN. MD AWARE OF ALL LABS. POSSIBLE DIALYSIS TODAY. ARGUELLES IN PLACE FROM SNF, UOP 30 ML/HR. MEDICATED PER EMAR. STAGE 2 TO L BUTTOCK, PICTURES TAKEN. INCT OF LIQUID STOOL X2.
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
--- NOTE | 2020-06-02 11:37 | MHC.CM.PN ---
Addendum entered by Naya Hurley 06/02/20 14:23: Call from [facility] patient is a resident there. Referral made via allscripts, will need S transpport. Original Note: CM spoke with patient's son by phone who reports patient is independent and lives with son. Son states he is her HCP, copy requested. Son reports he thinks PCP is with [facility]. Discussed discharge plan, patient will return home with son. Son will provide transportation. CM will continue to follow for discharge needs.
[2020-06-02] MEDS: Sodium Bicarbonate 8.4% 100 MEQ in Dextrose 5 % 900 ML 200 MEQ IV (12:47)
[2020-06-02 13:40] LABS: Mean Corpuscular HGB Conc 31.3 g/dl (31.0-35.0); Mean Corpuscular Hemoglobin 27.2 pg (27.0-33.0); Mean Platelet Volume 11.8 fL (9.4-12.3); Platelet Count 358 X10*3/uL (160-400); Red Blood Count 3.45 X10*6/uL (4.20-5.50); Red Cell Distribution Width 17.3 % (11.0-16.0); White Blood Count 6.4 X10*3/uL (4.8-10.8)
[2020-06-02 13:41] LABS: Base Excess VBG -4.9 mmol/L; Blood Gas Serial # 5414; HCO3 VBG 19 mmol/L; Oxygen Saturation VBG 73.4 %; PCO2 VBG 28 mmhg; PO2 VBG 36 mmhg; pH VBG 7.44 (7.32-7.43)
[2020-06-02 13:48] LABS: INTERNATIONAL NORM RATIO 1.5 (0.9-1.1)
--- NOTE | 2020-06-02 14:00 | PM.EVENT ---
Event Note Event Note: RENAL CONSULT Patient seen and examined D/w ICU Nursing staff and ICU attending NAZANIN CKD -5 - Baseline creat is around 4.5 based on [facility] records Severe Met acidosis - AG type Hyperkalemia resolved Continue IVF with bicarb Hypotonic fluids Free water PO Avoid nephrotoxins Hold Lasix May need to start Hd this admission as pt with poor muscle mass and has severe Acidosis/ Hig K Thx Will follow
[2020-06-02 14:26] LABS: Alanine Aminotransferase < 6 U/L (0-31); Albumin Level 2.9 g/dL (3.5-5.0); Alkaline Phosphatase 132 U/L (39-117); Anion Gap 33 (12-20); Aspartate Amino Transferase 11 U/L (5-31); Bilirubin Total 0.3 mg/dL (0.0-1.0); Blood Urea Nitrogen 65 mg/dL (9-16); Calcium 7.6 mg/dL (8.4-10.2); Carbon Dioxide 14 mmol/L (22-29); Chloride 116 mmol/L (96-108); Creatinine Clr Calc Pharmacy 7.7; Estimated Glomerular Filt Rate 7; Glucose Random 146 mg/dL (60-115); Potassium 3.7 mmol/l (3.3-5.1); Sodium 159 mmol/L (135-145); Total Protein 8.1 g/dL (6.5-8.0)
[2020-06-02 14:30] LABS: Hemoglobin 9.4 g/dl (12.0-16.0)
[2020-06-02] MEDS: hydrOXYzine HCL 25 MG TABLET PO ×2 (14:38→22:36)
[2020-06-02] MEDS: Sodium Bicarbonate 650 MG TABLET PO ×2 (14:38→22:35)
[2020-06-02] MEDS: amLODIPine Besylate 10 MG TABLET PO (14:38)
[2020-06-02] MEDS: Dextrose 5 % 1,000 ML 200 ML IVCONT ×2 (14:41→19:55)
[2020-06-02] MEDS: carvediloL 12.5 MG TABLET PO ×2 (14:41→22:34)
[2020-06-02 15:31] LABS: Creatinine Urine 73.45 mg/dL
--- NOTE | 2020-06-02 16:49 | CONS_ITS ---
DATE OF SERVICE: REASON FOR CONSULTATION: Consult requested by the ICU attending, Dr. Terrazas to evaluate and help in management of patient with severe renal insufficiency, hyperkalemia, and metabolic acidosis. HISTORY OF PRESENT ILLNESS: The patient is a 59-year-old female, originally from [facility] with past medical history of chronic kidney disease, stage 5, with a baseline creatinine ranging around 4.5; history of CVA without deficit and hypertension, who presented to the emergency room, sent in from rehab because of cough. She is [place] speaking and history was mostly from the ICU attending and medical records. 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 In the ER, the patient had a creatinine of 6.1, potassium of 6.3 and bicarb of 5. Her pH was 7.1. EKG did not show any peaked T-waves. The patient was treated medically for hyperkalemia including calcium gluconate, insulin, dextrose, and Kayexalate. Repeat potassium is improved, and lactic acid level was 1.8. She is presently hypernatremic. REVIEW OF SYSTEMS: Unavailable due to language issues. PAST MEDICAL HISTORY: History of chronic kidney disease, stage 5; as mentioned before, history of Nicholson-Kemal syndrome, treated at [facility], associated with carbamazepine treatment; history of COVID infection with recovery, negative test per [facility] report; CVA without residual deficit; hypertension; GERD; constipation; leg edema; insomnia; and depression. PAST SURGICAL HISTORY: Unknown. FAMILY HISTORY: Unknown. SOCIAL HISTORY: Unknown. ALLERGIES: THE PATIENT HAS ALLERGY TO CARBAMAZEPINE, WHICH CAUSED NICHOLSON-KEMAL SYNDROME. MEDICATIONS: Include Tylenol, amlodipine, baclofen, bisacodyl, calcium acetate, carvedilol, cefazolin, diphenhydramine, famotidine, furosemide 20 mg daily, glucagon, hydroxyzine, milk of magnesia, melatonin, omeprazole, Zofran, polyethylene glycol, senna, Zoloft, and sodium bicarbonate 650 mg 3 times a day. PHYSICAL EXAMINATION: GENERAL: The patient is resting in the bed, awake, comfortable. VITAL SIGNS: Blood pressure was 150/79, pulse 112, and afebrile. HEENT: Pupils equal, round, and reactive bilaterally to light. Mucosa dry. There is no scleral icterus or conjunctival congestion. NECK: No jugular venous distention is noted. Neck was supple. CARDIOVASCULAR SYSTEM: S1, S2 without rub. RESPIRATORY SYSTEM: Air entry decreased in the bases. No crepitation or rhonchi is noted. ABDOMEN: Soft and nontender. No guarding noted. Bowel sounds normal. EXTREMITIES: No edema. There is no peripheral cyanosis or clubbing. NEUROLOGIC: Essentially nonfocal. LABORATORY DATA: Labs done today. WBC is 10.1, hemoglobin 11, hematocrit 38.1, platelets 346. Sodium 145, potassium 6.3, chloride 118, CO2 less than 5, BUN 64, creatinine 6.16, estimated GFR is 7, calcium 8.2 with repeat labs this morning, sodium 155, potassium 4.6, bicarb 7, anion gap 34, BUN 66, creatinine 6.47, calcium 8.4, total bilirubin 0.3, albumin 3.1. IMPRESSION: 1. A 59-year-old Korean speaking female with acute kidney injury. Acute kidney injury in this patient likely secondary to prerenal azotemia/dehydration with continued use of diuretic. It is unclear if she has progressive chronic kidney disease without a significant acute component. Obstruction needs to be ruled out on this patient. I do not see a urinalysis to comment on the possibility of acute glomerulonephritis/interstitial disease. 2. Chronic kidney disease, stage 5, at baseline in the setting of polycystic kidney disease and hypertension. 3. Hyperkalemia in the setting of severe renal insufficiency. 4. Severe metabolic acidosis in the setting of progressive renal insufficiency. 5. Cough with history of COVID positive status. 6. Hypernatremia with free water deficit. RECOMMENDATIONS: At this juncture, I have taken liberty to order a full urinalysis. I have also ordered a spot urine for electrolytes, protein, and creatinine. I agree with intravenous fluids with sodium bicarbonate. I recommend D5 water with 100 mg of sodium bicarb, which is at 200 mL an hour. Using hypotonic fluid will also correct the hypernatremia. I advised holding off on Lasix and avoid using any nephrotoxic agents. We can continue with the calcium acetate for hyperphosphatemia. We should also continue the present antihypertensive regimen. I will review all of her basic medical record and see if she has seen a patient support specialist in the past and I will also review my office records. I think the patient has severe end-stage chronic kidney disease, and we might have to initiate renal replacement therapy during this admission, but I do not see any immediate reason for dialysis on an emergency basis today. Thank you for allowing me to participate in medical management of the patient. MD TORSTEN Phelan/SIERRA / [phone]
[2020-06-02] MEDS: Omeprazole 20 MG CAPSULE.DR PO (17:22)
[2020-06-02] MEDS: Calcium Acetate 667 MG CAPSULE 1334 MG PO (17:22)
[2020-06-02] MEDS: Phytonadione (Vit K1) 10 MG in 0.9 % Sodium Chloride 50 ML 51 MG IV (17:23)
[2020-06-02] MEDS: ceFAZolin Sodium/Dextrose,Iso 2 GM/50 ML PIGGYBACK IV (17:23)
[2020-06-02 21:34] LABS: Anion Gap 31 (12-20); Blood Urea Nitrogen 60 mg/dL (9-16); Calcium 7.1 mg/dL (8.4-10.2); Carbon Dioxide 13 mmol/L (22-29); Chloride 106 mmol/L (96-108); Creatinine Clr Calc Pharmacy 7.8; Estimated Glomerular Filt Rate 7; Glucose Random 145 mg/dL (60-115); Phosphorus 4.1 mg/dL (2.7-4.5); Potassium 3.5 mmol/l (3.3-5.1); Sodium 146 mmol/L (135-145)
[2020-06-02] MEDS: Melatonin 3 MG TABLET 6 MG PO (22:35)
[2020-06-02] MEDS: Baclofen 10 MG TABLET 5 MG PO (22:37)
[2020-06-02] MEDS: Famotidine 20 MG TABLET PO (22:40)
[2020-06-03] VITALS (24 sets, daily range): BP systolic 114–163; BP diastolic 64–91; PULSE 67–105; RESP 14–23; TEMP 35.7–36.8; O2SAT 93–100; BMI 19.1; BMI 18.6
--- NOTE | 2020-06-03 | XR_ITS ---
EXAMINATION: XR CHEST CLINICAL INFORMATION: New CVP line. COMPARISON: Chest 06/01/2020 at 7:55 PM TECHNIQUE: Frontal view of the chest was obtained. FINDINGS: The lungs are well-expanded and clear. The heart size and pulmonary vascularity is normal. No gross bony abdomen is seen. There is a central catheter with its tip at the atriocaval junction. No pneumothorax seen. XR/XR chest 1V IMPRESSION: No change in right central catheter tip at the atrial caval junction. The lungs are clear.
--- NOTE | 2020-06-03 | US_ITS ---
EXAMINATION: ULTRASOUND CAROTID DUPLEX CLINICAL INFORMATION: New onset focal seizure. COMPARISON: None TECHNIQUE: Routine grayscale, color and Doppler imaging of carotid arteries was performed. FINDINGS: LEFT CAROTID ARTERY: There is normal color flow seen in left common carotid and internal carotid artery without any plaque. Proximal CCA measures 63 cm/second. Distal CCA measures 68 cm/second. Proximal ICA systolic/diastolic velocity: 49/18 cm/second. There is normal antegrade flow seen in the vertebral artery. The subclavian arteries are patent as well. The right carotid artery could not be imaged due to triple lumen and bandages overlying the right neck. US/US carotid duplex LT IMPRESSION: No significant stenosis seen in the left carotid artery. Right carotid artery could not be evaluated.
--- NOTE | 2020-06-03 | CT_ITS ---
EXAMINATION: CT HEAD WITHOUT CONTRAST CLINICAL INFORMATION: Altered mental status. New onset seizure. COMPARISON: None TECHNIQUE: Contiguous axial imaging was performed from the skull base to vertex without intravenous administration of contrast. Additional 2-D coronal and sagittal reformatted images are generated on the CT workstation and uploaded to PACS. Some images repeated due to motion. DOSE LOWERING TECHNIQUES: This CT examination was performed using dose optimization techniques as appropriate, variously including the following: *Automated exposure control *Adjustment of mA and/or kV according to patient size (this includes techniques or standardized protocols for targeted exams where dose is matched to indication/reason for exam; i.e. extremities or head) *Use of iterative reconstruction technique DLP: 1321 mGy-cm FINDINGS: Exam is limited by motion artifact. Images are repeated. There are old postsurgical changes with craniotomy and prior aneurysm clipping anterior circulation. There are old appearing infarcts in the bilateral frontal lobes, greater on right. 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 Compensatory enlargement right ventricle is present. There is no definite acute territorial infarct or mass lesion. No definite midline shift. There is no intracranial hemorrhage or hematoma. Cavum septum pellucidum is suggested. There is no hydrocephalus. No definite mass effect or acute edema. There are old postsurgical changes anterior calvarium consistent with the aneurysm repair. No acute bony abnormality. No pneumocephalus. No air-fluid levels sinuses or middle ears or mastoids. CT/CT head/brain wo con IMPRESSION: 1. 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 2. Old appearing infarcts bilateral frontal lobes with periventricular white matter gliosis, greater on right. 3. No intracranial hemorrhage, hydrocephalus, or mass effect.
[2020-06-03] MEDS: 0.9 % Sodium Chloride Flush 3 ML SYRINGE IVFLUSH ×3 (00:43→15:09)
[2020-06-03] MEDS: diphenhydrAMINE HCL 25 MG TABLET PO (00:45)
[2020-06-03] MEDS: Dextrose 5 % 1,000 ML 200 ML IVCONT ×2 (00:46→05:33)
[2020-06-03] MEDS: ceFAZolin Sodium/Dextrose,Iso 2 GM/50 ML PIGGYBACK IV (03:06)
[2020-06-03] MEDS: Phytonadione (Vit K1) 10 MG in 0.9 % Sodium Chloride 50 ML 51 MG IV ×2 (03:10→15:54)
[2020-06-03] MEDS: predniSONE 20 MG TABLET PO (03:29)
[2020-06-03] MEDS: Omeprazole 20 MG CAPSULE.DR PO (05:33)
[2020-06-03] MEDS: Heparin Sodium,Porcine 5,000 UNIT/ML VIAL 5000 UNIT SUBCUT ×2 (05:34→17:02)
[2020-06-03 05:51] LABS: Basophils Percent Auto 0.3 % (0-2); Eosinophils Absolute Auto 0.6 X10*3/uL (0.0-0.4); Eosinophils Percent Auto 16.1 % (0-4); Hematocrit 22.3 % (37-47); Hemoglobin 7.1 g/dl (12.0-16.0); Imm Gran Abs Auto 0.03 X10*3/uL (0.00-0.03); Imm Gran Pct Auto 0.8 % (0.0-0.4); Lymphocytes Absolute Auto 0.6 X10*3/uL (1.2-4.9); Lymphocytes Percent Auto 15.8 % (20-40); MANUAL DIFF FLAG SCAN; Mean Corpuscular HGB Conc 31.8 g/dl (31.0-35.0); Mean Corpuscular Hemoglobin 27.5 pg (27.0-33.0); Mean Corpuscular Volume 86.4 fL (80-98); Mean Platelet Volume 11.7 fL (9.4-12.3); Monocytes Absolute Auto 0.3 X10*3/uL (0.1-1.2); Monocytes Percent Auto 8.8 % (2-11); Neutrophils Absolute Auto 2.2 X10*3/uL (2.0-8.3); Neutrophils Percent Auto 58.2 % (45-73); Platelet Count 215 X10*3/uL (160-400); Red Blood Count 2.58 X10*6/uL (4.20-5.50); Red Cell Distribution Width 16.9 % (11.0-16.0); SCAN SMEAR FLAG 1; White Blood Count 3.9 X10*3/uL (4.8-10.8)
[2020-06-03 06:29] LABS: SLIDE REVIEW VERIFIED
[2020-06-03 06:49] LABS: Anion Gap 26 (12-20); Blood Urea Nitrogen 56 mg/dL (9-16); Calcium 6.3 mg/dL (8.4-10.2); Carbon Dioxide 12 mmol/L (22-29); Chloride 97 mmol/L (96-108); Creatinine Clr Calc Pharmacy 8.7; Estimated Glomerular Filt Rate 8; Glucose Random 159 mg/dL (60-115); Phosphorus 3.2 mg/dL (2.7-4.5); Potassium 3.2 mmol/l (3.3-5.1); Sodium 132 mmol/L (135-145)
--- NOTE | 2020-06-03 06:53 | PC.NURSE ---
PT RESTLESS DURING THE NIGHT. WAS FIDGETY IN BED. INC OF SOFT BROWN STOOL AND ALSO USED BEDPAN TO PASS THE SAME. STAGE 2 ULCER ON LEFT BUTTOCKS NOTED. BARRIER CREAM APPLIED. PT ALSO NOTED TO BE VERY ITCHY AND RECEIVED BENEDRYL PO WITH SOME RELIEF BUT THEN PREDNISONE WAS ORDERED BY YAYO MARRUFO. SHE RELAXED FOR A SHORT TIME AFTER AND SLEPT FOR ABOUT 1-2 HOURS. OTHER THAN THAT SHE WAS AWAKE MOST OF THE NIGHT. [employer] USED TO COMMUNICATE WITH PT. SHE WANTED TO CALL HER SON SO WE USED A PORTABLE PHONE FOR HER TO CALL. HER SON, SWETHA LATER CALLED THE UNIT TO TELL US THE PT WAS HUNGRY. SHE WAS GIVEN A CUP OF TEA WITH GINI CRACKERS AND JELLO. LATER SHE WAS YELLING OUT AND [employer] SERVICES WAS USED AGAIN AND PT TOLD THEM SHE WAS HUNGRY. SHE DENIED ANY OTHER COMPLAINTS. SNACK GIVEN AT THAT TIME. U/O BORDERLINE, RIGHT AROUND 30 ML/HR. YARON SALDANA AWARE. PT RECEIVING D5W AT 200ML/HR. BP STABLE. MONITOR SHOWS NR-ST, 80'S-110, NO ECTOPY.
[2020-06-03 08:11] LABS: Base Excess VBG -11.1 mmol/L; HCO3 VBG 14 mmol/L; PCO2 VBG 26 mmhg; PO2 VBG 43 mmhg; pH VBG 7.34 (7.32-7.43)
[2020-06-03 08:12] LABS: Oxygen Saturation VBG 76.6 %
--- NOTE | 2020-06-03 08:47 | PC.NURSE ---
3 MINUTE SEIZURE ACTIVITY NOTED. 5MG VERSED IV GIVEN. DR BATES AT BEDSIDE FROTHY ORAL SECRETION ORAL CAVITY SUCTIONED. PRESENTLY POSTICTAL. DELGADO CATHETER LOST, MD AWARE. VSS AFTER EVENT
--- NOTE | 2020-06-03 10:20 | PM.PNNEP ---
Subjective Subjective Interval history: 51-year-old [place] woman. with advanced CKD and superimposed NAZANIN Overnight events noted Na dropped from 154 to 132 in 24 hours Ca has decreased and had focal seizure like activity Currently non oliguric Cr is trending down K acceptable Physical Exam Vital Signs: Vital Signs: Vital Signs Temp Pulse Resp BP Pulse Ox 06/03/20 10:00 102 H 17 128/80 98 06/03/20 09:00 105 H 21 H 163/91 H 93 06/03/20 08:00 96.2 F L 76 14 114/64 97 06/03/20 06:56 79 14 150/79 H 06/03/20 06:00 92 20 150/79 H 98 06/03/20 05:00 88 21 H 145/64 H 99 06/03/20 04:00 86 20 138/84 100 06/03/20 03:00 82 19 120/65 100 06/03/20 02:00 87 21 H 134/71 98 06/03/20 01:00 88 18 146/88 H 98 06/03/20 00:00 98.3 F 102 H 23 H 142/82 H 100 06/02/20 23:00 106 H 23 H 143/77 H 100 06/02/20 22:34 112 H 125/69 06/02/20 22:00 98 20 125/69 98 06/02/20 21:00 106 H 23 H 123/78 100 06/02/20 20:00 98.2 F 112 H 24 H 165/94 H 100 06/02/20 19:00 116 H 22 H 153/92 H 100 06/02/20 18:00 106 H 18 139/103 H 100 06/02/20 17:00 118 H 17 100 06/02/20 16:00 124 H 20 128/99 H 100 06/02/20 15:00 125 H 21 H 128/99 H 100 06/02/20 14:41 152 H 120/102 H 06/02/20 14:38 152 H 120/102 H 06/02/20 14:00 142 H 16 120/102 H 100 06/02/20 13:00 112 H 13 150/79 H 99 06/02/20 12:00 125 H 22 H 169/97 H 99 06/02/20 11:00 135 H 20 182/105 H 100 Body Mass Index 18.6 Const: General: ill appearing Assessment & Plan Assessment and plan (1) Renal failure: Status: Acute Assessment and Plan: Minimal improvement in creatinine No absolute indication for dialysis Watch urine output Continue to avoid nephrotoxins (2) Metabolic acidosis: Status: Acute Assessment and Plan: Gradually improving Agree with switching to Ringers lactate (3) Hypernatremia: Status: Acute Assessment and Plan: Rapid correction of Na Off D5W and agree with ringers lactate Repeat Na 4 hrly and adjust IVF (4) Hypocalcemia: Status: Acute Assessment and Plan: Ca has drifted down Agree with supplement Will check iPTH
[2020-06-03] MEDS: Calcium Gluconate/NaCl,Iso-Osm 1 GM/50 ML PLAST..BAG IV ×2 (10:45→18:33)
[2020-06-03] MEDS: levETIRAcetam in NaCl (iso-os) 1,000 MG/100 ML PIGGYBACK 400 MG IV (10:45)
[2020-06-03] MEDS: Midazolam HCl/PF 2 MG/2 ML VIAL 5 MG IVPUSH (10:46)
[2020-06-03 10:58] LABS: INTERNATIONAL NORM RATIO 1.2 (0.9-1.1); Prothrombin Time 14.6 SEC (10.8-13.0)
[2020-06-03 11:04] LABS: Partial Thromboplastin Time 73.8 SEC (24.1-38.0)
--- NOTE | 2020-06-03 11:11 | P.PNCC_ITS ---
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 where Tegretol was discontinued and no further seizure medicine was added no EEG was done and at 1 time noted to be positive for Klebsiella in blood cultures and is about 4 weeks into treatment with cefazolin and readmitted OV here for cough but before leaving [facility] she was deemed non infective but on this admission she remains PCR positive for COVID antigen as well as IgG antibody positive. Here I noted that after hydration and aggressive bicarb replacement for severe bicarbonate deficit and profound metabolic acidosis she is now better compensated no evidence of dyspnea or significant hypoxemia is in sinus tachycardia with diffuse nonspecific ST-T changes and initial hyperkalemia 6.3 now down to 3.2 and the initial hypernatremia over corrected to 132 so the initial fluid is being stopped and will hydrate at a gentler rate after obtaining a CVP with with Ringer's lactate and also because of hypocalcemia 1 amp of calcium gluconate was given and this was also particularly can concerning when she developed status epilepticus but focal with purposeful movement of the right side but clear-cut seizure activity involving face and extremities on the left side and she responded initially to Versed and then subsequently because of recurring events I started her on Keppra as well noting that she is hypereosinophilic with worsening renal failure and having concerns for interstitial nephritis I stop the cefazolin and I am going to give her 1 trial dose of Levaquin and see how we respond currently pancytopenic and apparently coagulopathic with an elevated PTT some s end off a screening sed rate and a significantly elevated will need echocardiography and possibly even transesophageal but will send off a collagen vascular workup also Physical Exam Vital Signs: Vital Signs: Vital Signs Temp Pulse Resp BP Pulse Ox 06/03/20 10:00 102 H 17 128/80 98 06/03/20 09:00 105 H 21 H 163/91 H 93 06/03/20 08:00 96.2 F L 76 14 114/64 97 06/03/20 06:56 79 14 150/79 H 06/03/20 06:00 92 20 150/79 H 98 06/03/20 05:00 88 21 H 145/64 H 99 06/03/20 04:00 86 20 138/84 100 06/03/20 03:00 82 19 120/65 100 06/03/20 02:00 87 21 H 134/71 98 06/03/20 01:00 88 18 146/88 H 98 06/03/20 00:00 98.3 F 102 H 23 H 142/82 H 100 06/02/20 23:00 106 H 23 H 143/77 H 100 06/02/20 22:34 112 H 125/69 06/02/20 22:00 98 20 125/69 98 06/02/20 21:00 106 H 23 H 123/78 100 06/02/20 20:00 98.2 F 112 H 24 H 165/94 H 100 06/02/20 19:00 116 H 22 H 153/92 H 100 06/02/20 18:00 106 H 18 139/103 H 100 06/02/20 17:00 118 H 17 100 06/02/20 16:00 124 H 20 128/99 H 100 06/02/20 15:00 125 H 21 H 128/99 H 100 06/02/20 14:41 152 H 120/102 H 06/02/20 14:38 152 H 120/102 H 06/02/20 14:00 142 H 16 120/102 H 100 06/02/20 13:00 112 H 13 150/79 H 99 06/02/20 12:00 125 H 22 H 169/97 H 99 Body Mass Index 18.6 Const: Other: at 1st noted to be in status epilepticus involving her left side and then responding promptly to IV Versed and then awoke from her postictal state with residual left hemiplegia but still capable of mode of motion on the left side General: well developed and awake Nutritional Appearance: average body habitus HENMT: Other: pupils were equal with eyes 1 wondering but no nystagmus and no ophthalmoplegia but no light reactivity Head: Yes normal to inspection Eyes: General: appearance normal, both eyes and all related structures Neck: Other: neck was supple with full range of motion Chest: Other: chest percussed equally with good bilateral breath sounds and no adventitious sounds Resp: Effort & Inspection: normal respiratory effort Auscultation: clear to auscultation bilaterally Percussion: percussion normal Cardio: Jugular venous distension: no JVD Palpation: normal PMI Rate: re gular rate Rhythm: regular rhythm Heart sounds: S1 normal heart sound present and S2 normal heart sound present GI: Inspection: Yes normal to inspection Palpation (GI): No hepatosplenomegaly present Percussion: Yes normal to percussion Auscultation: normal bowel sounds Skin: General skin exam: scars ( scars noted diffusely on the body and extremities appearing to be healed s) Neuro: General: moves all extremities, CN's II-XI intact bilaterally and other ( left hemiparesis) Cranial nerves: Yes CN's II-XII intact bilaterally Extrem: Other: hemiparetic on left side Objective Data Labs CBC & Chem 7: 06/03/20 05:37 06/03/20 05:37 Labs: Laboratory Results - last 24 hr 06/02/20 06/02/20 06/02/20 13:17 13:17 13:17 WBC 6.4 RBC 3.45 L Hgb 9.4 L Hct 30.0 L D MCV 87.0 D MCH 27.2 MCHC 31.3 RDW 17.3 H Plt Count 358 MPV 11.8 Immature Gran % (Auto) Neut % (Auto) Lymph % (Auto) [place] % (Auto) Eos % (Auto) Baso % (Auto) Lymph # (Auto) [place] # (Auto) Eos # (Auto) Baso # (Auto) Abs Immat Gran (auto) Absolute Neuts (auto) Absolute Nucleated RBC 0.000 Nucleated RBC % (auto) 0.0 Smear Tech's Comments PT 18.0 H INR 1.5 H APTT VBG pH VBG pCO2 VBG Oxygen Liters/Min VBG pO2 VBG HCO3 VBG O2 Saturation VBG Base Excess Sodium 159 H Potassium 3.7 Chloride 116 H Carbon Dioxide 14 L Anion Gap 33 H BUN 65 H Creatinine 6.36 H* Estim Creat Clear Calc 7.7 Estimated GFR 7 Random Glucose 146 H Calcium 7.6 L Phosphorus Total Bilirubin 0.3 AST 11 ALT < 6 Alkaline Phosphatase 132 H Total Protein 8.1 H Albumin 2.9 L Ur Random Sodium Urine Creatinine 06/02/20 06/02/20 06/02/20 13:17 14:45 20:17 WBC RBC Hgb Hct MCV MCH MCHC RDW Plt Count MPV Immature Gran % (Auto) Neut % (Auto) Lymph % (Auto) [place] % (Auto) Eos % (Auto) Baso % (Auto) Lymph # (Auto) [place] # (Auto) Eos # (Auto) Baso # (Auto) Abs Immat Gran (auto) Absolute Neuts (auto) Absolute Nucleated RBC Nucleated RBC % (auto) Smear Tech's Comments PT INR APTT VBG pH 7.44 H VBG pCO2 28 VBG Oxygen Liters/Min TNP VBG pO2 36 VBG HCO3 19 VBG O2 Saturation 73.4 VBG Base Excess -4.9 Sodium 146 H Potassium 3.5 Chloride 106 Carbon Dioxide 13 L Anion Gap 31 H BUN 60 H Creatinine 6.22 H* Estim Creat Clear Calc 7.8 Estimated GFR 7 Random Glucose 145 H Calcium 7.1 L Phosphorus 4.1 Total Bilirubin AST ALT Alkaline Phosphatase Total Protein Albumin Ur Random Sodium 97.0 Urine Creatinine 73.45 06/03/20 06/03/20 06/03/20 05:37 05:37 07:40 WBC 3.9 L RBC 2.58 L D Hgb 7.1 L D Hct 22.3 L D MCV 86.4 MCH 27.5 MCHC 31.8 RDW 16.9 H Plt Count 215 D MPV 11.7 Immature Gran % (Auto) 0.8 H Neut % (Auto) 58.2 Lymph % (Auto) 15.8 L [place] % (Auto) 8.8 Eos % (Auto) 16.1 H Baso % (Auto) 0.3 Lymph # (Auto) 0.6 L [place] # (Auto) 0.3 Eos # (Auto) 0.6 H Baso # (Auto) 0.0 Abs Immat Gran (auto) 0.03 Absolute Neuts (auto) 2.2 Absolute Nucleated RBC 0.000 Nucleated RBC % (auto) 0.0 Smear Tech's Comments VERIFIED PT INR APTT VBG pH 7.34 VBG pCO2 26 VBG Oxygen Liters/Min TNP VBG pO2 43 VBG HCO3 14 VBG O2 Saturation 76.6 VBG Base Excess -11.1 Sodium 132 L Potassium 3.2 L Chloride 97 Carbon Dioxide 12 L Anion Gap 26 H BUN 56 H Creatinine 5.65 H* Estim Creat Clear Calc 8.7 Estimated GFR 8 Random Glucose 159 H Calcium 6.3 L Phosphorus 3.2 Total Bilirubin AST ALT Alkaline Phosphatase Total Protein Albumin Ur Random Sodium Urine Creatinine 06/03/20 10:12 WBC RBC Hgb Hct MCV MCH MCHC RDW Plt Count MPV Immature Gran % (Auto) Neut % (Auto) Lymph % (Auto) [place] % (Auto) Eos % (Auto) Baso % (Auto) Lymph # (Auto) [place] # (Auto) Eos # (Auto) Baso # (Auto) Abs Immat Gran (auto) Absolute Neuts (auto) Absolute Nucleated RBC Nucleated RBC % (auto) Smear Tech's Comments PT 14.6 H INR 1.2 H APTT 73.8 H* VBG pH VBG pCO2 VBG Oxygen Liters/Min VBG pO2 VBG HCO3 VBG O2 Saturation VBG Base Excess Sodium Potassium Chloride Carbon Dioxide Anion Gap BUN Creatinine Estim Creat Clear Calc Estimated GFR Random Glucose Calcium Phosphorus Total Bilirubin AST ALT Alkaline Phosphatase Total Protein Albumin Ur Random Sodium Urine Creatinine Progress Note: A&P Assessment and plan (1) Hypocalcemia: Status: Acute (2) Hypernatremia: Status: Acute (3) COVID-19: Status: Acute (4) Renal failure: Status: Acute (5) Metabolic acidosis: Status: Acute (6) Status epilepticus due to complex partial seizure: Status: Acute (7) End stage renal failure untreated by renal replacement therapy: Status: Acute (8) Klebsiella sepsis: Status: Acute (9) Vivas-Kemal syndrome: Status: Acute (10) Coagulopathy: Status: Acute (11) Anemia: Status: Acute Assessment and Plan: will monitor stool guaiac for blood loss and review a slide for evidence of microangiopathic picture and follow CBC for evidence of consumption due to hyper eosinophilia I plan to stop cefazolin and switched to Levaquin to continue treating for the remaining 2 weeks the Klebsiella bacteremia obtain echocardiogram for status epilepticus will get a dry CT scan today continue IV hydration to maximally reverse the BUN and creatinine replace hypocalcemia and gently replace the hypokalemia and change fluids to Ringer's lactate to offset the precipitous fall in the sodium Time Spent With Patient Time: Total time spent is greater than 50% in coordination of care (as documented) at patient's floor/unit and/or counseling patient: Total time spent with greater than 50% in coordination of care (as documented) at patient's floor/unit and/or counseling patient:: 60 No Severe Sepsis: No Severe Sepsis
--- NOTE | 2020-06-03 11:47 | CA_ITS ---
Transthoracic Echocardiogram Limited Patient (Last, First, Middle): Jillian Cummings, Gender: Female Date of : 1960 Age: 59 Procedure Date: 06/03/2020 Procedure Type: Transthoracic Echocardiogram Limited Location: ICU Height: 152.4 cm Weight: 52.16 kg BSA: 1.48 m2 Heart Rate: bpm BP: 154 / 73 mmHg Rn Child: Referring MD: Viviana Nassar MD Symptoms: Klebsiella sepsis and MSSA sepsis Study Quality: Fair ECG Rhythm: Sinus Conclusions: - The left ventricular systolic function is normal. The visually estimated ejection fraction is between 55-60%. Findings Left Ventricle Normal left ventricular cavity size. There is normal left ventricular wall thickness. The left ventricular systolic function is normal. The visually estimated ejection fraction is between 55-60%. There is no evidence of regional wall motion abnormalities. Tricuspid Valve There is mild tricuspid valve regurgitation. The pulmonary artery systolic pressure is normal. Venous The inferior vena cava is normal in size and collapses greater than 50% with inspiration. Prior Study Comparison No prior study available for comparison. Measurements Tricuspid Valve TR Pk Alireza: 1.89 TR Pk Grad: 14.00 Updated in Other Vendor System with Status of Final Branden Shirley MD electronically signed on 06/03/2020 4:45:39 PM with status of Final
[2020-06-03 11:48] LABS: Erythrocyte Sedimentation Rate 101 MM/HR (0-20)
[2020-06-03 11:49] LABS: Vitamin D 25-OH Total 9.5 ng/mL (>30)
[2020-06-03] MEDS: levoFLOXacin/D5W 500 MG/100 ML PIGGYBACK 100 MG IV (12:04)
--- NOTE | 2020-06-03 13:01 | MHC.CM.PN ---
Pt remains in ICU for NAZANIN and electrolyte abnormalities: Pt will return to [facility] where she had been for STR prior to being admitted here. Clinical updates sent to [facility].
--- NOTE | 2020-06-03 13:38 | PC.NURSE ---
CVP OF 6
--- NOTE | 2020-06-03 14:38 | PC.NURSE ---
SE AFEBRILE SR, ST STABLE B/P ROOM AIR SATURATION WNL NO FURTHER SEIZURE ACTIVITY NPO, NO PO MEDICATIONS GIVEN ECHO CARDIOGRAM IN PROGRESS CT OF BRAIN DONE THIS AM NEW TLC PLACED RIGHT IJ CXR DONE AFTER PLACEMENT ZINC BARRIER CREAM APPLIED TO STAGE 2 ON BUTTOCKS, LOTION TO DRY AND FLAKING PATCHES OF SKIN CALCIUM REPLACED THIS AM LR WITH POTASSIUM HUNG NO FAMILY OR VISITORS
[2020-06-03 17:51] LABS: Anion Gap 26 (12-20); Blood Urea Nitrogen 56 mg/dL (9-16); Calcium 6.4 mg/dL (8.4-10.2); Carbon Dioxide 12 mmol/L (22-29); Chloride 99 mmol/L (96-108); Creatinine Clr Calc Pharmacy 8.8; Estimated Glomerular Filt Rate 8; Glucose Random 88 mg/dL (60-115); Potassium 4.1 mmol/l (3.3-5.1); Sodium 133 mmol/L (135-145)
[2020-06-03] MEDS: levETIRAcetam in NaCl (iso-os) 500 MG/100 ML PIGGYBACK 400 MG IV (18:33)
[2020-06-03 22:33] LABS: OBS Int Ctl Valid YES; OBS1 POS (NEG)
[2020-06-03 23:09] LABS: Leukocytes Stool Qualitative NEGATIVE (NEGATIVE)
[2020-06-04] VITALS (27 sets, daily range): BP systolic 115–183; BP diastolic 40–115; PULSE 70–105; RESP 13–26; TEMP 36.9–37.5; O2SAT 100; BMI 18.3
[2020-06-04] MEDS: levETIRAcetam in NaCl (iso-os) 500 MG/100 ML PIGGYBACK 400 MG IV ×2 (04:40→16:35)
[2020-06-04] MEDS: Heparin Sodium,Porcine 5,000 UNIT/ML VIAL 5000 UNIT SUBCUT ×2 (04:40→16:35)
[2020-06-04 05:16] LABS: Basophils Percent Auto 0.6 % (0-2); Eosinophils Absolute Auto 0.3 X10*3/uL (0.0-0.4); Hematocrit 20.7 % (37-47); Imm Gran Abs Auto 0.02 X10*3/uL (0.00-0.03); Imm Gran Pct Auto 0.6 % (0.0-0.4); Lymphocytes Absolute Auto 0.7 X10*3/uL (1.2-4.9); Lymphocytes Percent Auto 19.2 % (20-40); MANUAL DIFF FLAG SCAN; Mean Corpuscular HGB Conc 31.9 g/dl (31.0-35.0); Mean Corpuscular Hemoglobin 27.6 pg (27.0-33.0); Mean Corpuscular Volume 86.6 fL (80-98); Mean Platelet Volume 12.6 fL (9.4-12.3); Monocytes Absolute Auto 0.6 X10*3/uL (0.1-1.2); Monocytes Percent Auto 17.4 % (2-11); Neutrophils Absolute Auto 1.8 X10*3/uL (2.0-8.3); Neutrophils Percent Auto 53.2 % (45-73); Platelet Count 196 X10*3/uL (160-400); Red Blood Count 2.39 X10*6/uL (4.20-5.50); Red Cell Distribution Width 16.4 % (11.0-16.0); SCAN SMEAR FLAG 1; White Blood Count 3.4 X10*3/uL (4.8-10.8)
[2020-06-04 05:22] LABS: Hemoglobin 6.6 g/dl (12.0-16.0)
[2020-06-04 05:26] LABS: INTERNATIONAL NORM RATIO 1.1 (0.9-1.1); Prothrombin Time 13.3 SEC (10.8-13.0)
[2020-06-04 05:31] LABS: Base Excess VBG -10.4 mmol/L; HCO3 VBG 14 mmol/L; Oxygen Saturation VBG 71.3 %; PCO2 VBG 26 mmhg; PO2 VBG 38 mmhg; pH VBG 7.35 (7.32-7.43)
[2020-06-04 05:41] LABS: SLIDE REVIEW VERIFIED
[2020-06-04 05:46] LABS: Albumin Level 2.4 g/dL (3.5-5.0); Anion Gap 26 (12-20); Blood Urea Nitrogen 52 mg/dL (9-16); Calcium 6.7 mg/dL (8.4-10.2); Carbon Dioxide 10 mmol/L (22-29); Chloride 104 mmol/L (96-108); Creatinine Clr Calc Pharmacy 9.1; Estimated Glomerular Filt Rate 8; Glucose Random 80 mg/dL (60-115); Potassium 3.3 mmol/l (3.3-5.1); Sodium 137 mmol/L (135-145)
[2020-06-04 06:42] LABS: Rheumatoid Factor < 15.0 IU/mL (<15.0)
[2020-06-04 06:47] LABS: Magnesium 1.2 mg/dL (1.6-2.6); Phosphorus 3.5 mg/dL (2.7-4.5)
--- NOTE | 2020-06-04 07:36 | PC.NURSE ---
attempted to call sondennise for consent for blood transfusion
[2020-06-04] MEDS: Potassium Chloride/H20 20 MEQ/100 ML PIGGYBACK 100 MEQ IV (08:07)
[2020-06-04] MEDS: Magnesium Sulfate/H2O 2 GM/50 ML PIGGYBACK IV (08:08)
[2020-06-04] MEDS: Calcium Acetate 667 MG CAPSULE 1334 MG PO (08:48)
[2020-06-04] MEDS: carvediloL 12.5 MG TABLET PO ×2 (08:49→20:07)
[2020-06-04] MEDS: Famotidine 20 MG TABLET PO ×2 (08:49→20:08)
[2020-06-04] MEDS: Sodium Bicarbonate 650 MG TABLET PO ×2 (08:50→20:08)
[2020-06-04] MEDS: amLODIPine Besylate 10 MG TABLET PO (08:50)
--- NOTE | 2020-06-04 10:27 | PM.PNNEP ---
Subjective Subjective Interval history: Events noted discussed with ICU attending UO improved Cr unchanged Physical Exam Vital Signs: Vital Signs: Vital Signs Temp Pulse Resp BP Pulse Ox 06/04/20 10:00 99.0 F 85 23 H 156/115 H 100 06/04/20 09:00 98.6 F 105 H 19 158/82 H 100 06/04/20 08:50 88 06/04/20 08:49 88 06/04/20 08:00 99.0 F 82 18 133/71 100 06/04/20 07:00 99.5 F 84 13 125/63 100 06/04/20 06:00 75 19 164/80 H 06/04/20 05:00 102 H 19 161/89 H 100 06/04/20 04:00 98.8 F 70 15 159/88 H 100 06/04/20 03:00 75 14 155/40 H 06/04/20 02:00 73 17 160/76 H 06/04/20 01:00 105 H 26 H 158/73 H 06/04/20 00:00 98.6 F 89 20 156/73 H 100 06/03/20 23:00 79 22 H 147/64 H 100 06/03/20 22:00 69 16 147/75 H 100 06/03/20 21:00 75 14 150/74 H 100 06/03/20 20:00 67 15 148/77 H 100 06/03/20 19:00 97.0 F 68 16 152/79 H 100 06/03/20 18:00 73 16 125/70 100 06/03/20 16:58 98.2 F 73 14 136/71 100 06/03/20 15:54 72 14 141/80 H 100 06/03/20 14:59 74 18 154/73 H 98 06/03/20 14:00 79 154/73 H 100 06/03/20 13:00 75 15 150/77 H 06/03/20 12:00 77 18 134/86 100 06/03/20 11:00 73 17 134/86 100 Body Mass Index 18.3 Const: General: ill appearing Cardio: Heart sounds: no rubs GI: Auscultation: normal bowel sounds Neuro: Motor exam (neuro): No Asterixis during motor activity present Assessment & Plan Assessment and plan (1) Renal failure: Status: Acute Assessment and Plan: Minimal improvement in creatinine No absolute indication for dialysis yet Watch urine output Continue to avoid nephrotoxins Needs kidney biopsy to r/o AGN /Interstitial nephritis- Shall order biopsy (2) Metabolic acidosis: Status: Acute Assessment and Plan: Bicarb remains low Agree with switching to Ringers lactate (3) Hypernatremia: Status: Acute Assessment and Plan: Rapid correction of Na Off D5W and agree with ringers lactate Repeat Na 4 hrly and adjust IVF (4) Hypocalcemia: Status: Acute Assessment and Plan: Ca has drifted down Agree with supplement iPTH Pending Time Spent With Patient Time: Total time spent is greater than 50% in coordination of care (as documented) at patient's floor/unit and/or counseling patient:
--- NOTE | 2020-06-04 10:59 | PM.CCPN ---
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 and raising suspicion for the Tegretol which was stopped and never replaced but since that time she was discharged with interim Klebsiella and MSSA sepsis on cefazolin and here she presents with hypereosinophilia and leukopenia and progressively worsening anemia but acute on chronic stage 5 renal failure as well in severe metabolic disarray and with hydration and bicarb replacement and correcting her other electrolytes she looked much better but she had an episode of status epilepticus which was focal in nature involving her left side so she responded well to Versed and then given Keppra as prophylaxis and was postictal with confusion all day but today much better renal function has improved but seems to be plateauing with a creatinine of 5-1/2 and persistent partially compensated metabolic acidosis and today she was notably hypokalemic and hypomagnesemic but her sed rate came back at 100 and raises questions of underlying collagen vascular disease etc. and I stopped the set cephazolin and and switched her to Levaquin but need to figure something to complete treatment for MSSA if it needs to be but there is no evidence on bedside echo of endocarditis so the my not being necessity I may just simply do some surveillance blood cultures to rule out intermittent bacteremia Physical Exam Vital Signs: Vital Signs: Vital Signs Temp Pulse Resp BP Pulse Ox 06/04/20 10:00 99.0 F 85 23 H 156/115 H 100 06/04/20 09:00 98.6 F 105 H 19 158/82 H 100 06/04/20 08:50 88 06/04/20 08:49 88 06/04/20 08:00 99.0 F 82 18 133/71 100 06/04/20 07:00 99.5 F 84 13 125/63 100 06/04/20 06:00 75 19 164/80 H 06/04/20 05:00 102 H 19 161/89 H 100 06/04/20 04:00 98.8 F 70 15 159/88 H 100 06/04/20 03:00 75 14 155/40 H 06/04/20 02:00 73 17 160/76 H 06/04/20 01:00 105 H 26 H 158/73 H 06/04/20 00:00 98.6 F 89 20 156/73 H 100 06/03/20 23:00 79 22 H 147/64 H 100 06/03/20 22:00 69 16 147/75 H 100 06/03/20 21:00 75 14 150/74 H 100 06/03/20 20:00 67 15 148/77 H 100 06/03/20 19:00 97.0 F 68 16 152/79 H 100 06/03/20 18:00 73 16 125/70 100 06/03/20 16:58 98.2 F 73 14 136/71 100 06/03/20 15:54 72 14 141/80 H 100 06/03/20 14:59 74 18 154/73 H 98 06/03/20 14:00 79 154/73 H 100 06/03/20 13:00 75 15 150/77 H 06/03/20 12:00 77 18 134/86 100 06/03/20 11:00 73 17 134/86 100 Body Mass Index 18.3 Const: Other: so today appropriate with reasonable cognitive function skin with no real open lesions just in 0 healing she shallow ulcer bases she has a normal CVP with no neck vein distension and good bilateral carotid upstrokes and normal S1 normal S2 with quiet precordium chest percussed equally with no clinical pleural effusions and no adventitious sounds abdomen is benign with no bruits no tenderness and no organomegaly Objective Data Labs CBC & Chem 7: 06/04/20 04:39 06/04/20 04:40 Labs: Laboratory Results - last 24 hr 06/03/20 06/03/20 06/03/20 05:37 10:12 10:12 WBC RBC Hgb Hct MCV MCH MCHC RDW Plt Count MPV Immature Gran % (Auto) Neut % (Auto) Lymph % (Auto) [place] % (Auto) Eos % (Auto) Baso % (Auto) Lymph # (Auto) [place] # (Auto) Eos # (Auto) Baso # (Auto) Abs Immat Gran (auto) Absolute Neuts (auto) Absolute Nucleated RBC Nucleated RBC % (auto) Smear Tech's Comments ESR 101 H PT 14.6 H INR 1.2 H APTT 73.8 H* VBG pH VBG pCO2 VBG Oxygen Liters/Min VBG pO2 VBG HCO3 VBG O2 Saturation VBG Base Excess Sodium Potassium Chloride Carbon Dioxide Anion Gap BUN Creatinine Estim Creat Clear Calc Estimated GFR Random Glucose Calcium Phosphorus Magnesium Albumin 25-OH Vitamin D Total 9.5 Stool Occult Blood Stool Leukocytes, Qual Rheumatoid Factor Blood Type Antibody Screen Direct Antiglob Test JOEL, Polyspecific Crossmatch 06/03/20 06/03/20 06/03/20 16:13 16:22 16:22 WBC RBC Hgb Hct MCV MCH MCHC RDW Plt Count MPV Immature Gran % (Auto) Neut % (Auto) Lymph % (Auto) [place] % (Auto) Eos % (Auto) Baso % (Auto) Lymph # (Auto) [place] # (Auto) Eos # (Auto) Baso # (Auto) Abs Immat Gran (auto) Absolute Neuts (auto) Absolute Nucleated RBC Nucleated RBC % (auto) Smear Tech's Comments ESR PT INR APTT VBG pH VBG pCO2 VBG Oxygen Liters/Min VBG pO2 VBG HCO3 VBG O2 Saturation VBG Base Excess Sodium 133 L Potassium 4.1 D Chloride 99 Carbon Dioxide 12 L Anion Gap 26 H BUN 56 H Creatinine 5.55 H* Estim Creat Clear Calc 8.8 Estimated GFR 8 Random Glucose 88 D Calcium 6.4 L Phosphorus Magnesium Albumin 25-OH Vitamin D Total Stool Occult Blood POS Stool Leukocytes, Qual NEGATIVE Rheumatoid Factor Blood Type Antibody Screen Direct Antiglob Test JOEL, Polyspecific Crossmatch 06/04/20 06/04/20 06/04/20 04:39 04:39 04:39 WBC 3.4 L RBC 2.39 L Hgb 6.6 L* Hct 20.7 L* MCV 86.6 MCH 27.6 MCHC 31.9 RDW 16.4 H Plt Count 196 MPV 12.6 H Immature Gran % (Auto) 0.6 H Neut % (Auto) 53.2 Lymph % (Auto) 19.2 L [place] % (Auto) 17.4 H Eos % (Auto) 9.0 H Baso % (Auto) 0.6 Lymph # (Auto) 0.7 L [place] # (Auto) 0.6 Eos # (Auto) 0.3 Baso # (Auto) 0.0 Abs Immat Gran (auto) 0.02 Absolute Neuts (auto) 1.8 L Absolute Nucleated RBC 0.000 Nucleated RBC % (auto) 0.0 Smear Tech's Comments VERIFIED ESR PT 13.3 H INR 1.1 APTT VBG pH 7.35 VBG pCO2 26 VBG Oxygen Liters/Min TNP VBG pO2 38 VBG HCO3 14 VBG O2 Saturation 71.3 VBG Base Excess -10.4 Sodium Potassium Chloride Carbon Dioxide Anion Gap BUN Creatinine Estim Creat Clear Calc Estimated GFR Random Glucose Calcium Phosphorus Magnesium Albumin 25-OH Vitamin D Total Stool Occult Blood Stool Leukocytes, Qual Rheumatoid Factor Blood Type Antibody Screen Direct Antiglob Test JOEL, Polyspecific Crossmatch 06/04/20 06/04/20 04:40 06:03 WBC RBC Hgb Hct MCV MCH MCHC RDW Plt Count MPV Immature Gran % (Auto) Neut % (Auto) Lymph % (Auto) [place] % (Auto) Eos % (Auto) Baso % (Auto) Lymph # (Auto) [place] # (Auto) Eos # (Auto) Baso # (Auto) Abs Immat Gran (auto) Absolute Neuts (auto) Absolute Nucleated RBC Nucleated RBC % (auto) Smear Tech's Comments ESR PT INR APTT VBG pH VBG pCO2 VBG Oxygen Liters/Min VBG pO2 VBG HCO3 VBG O2 Saturation VBG Base Excess Sodium 137 Potassium 3.3 Chloride 104 Carbon Dioxide 10 L* Anion Gap 26 H BUN 52 H Creatinine 5.37 H* Estim Creat Clear Calc 9.1 Estimated GFR 8 Random Glucose 80 Calcium 6.7 L Phosphorus 3.5 Magnesium 1.2 L* Albumin 2.4 L 25-OH Vitamin D Total Stool Occult Blood Stool Leukocytes, Qual Rheumatoid Factor < 15.0 Blood Type O Positive Antibody Screen NEGATIVE Direct Antiglob Test POSITIVE H JOEL, Polyspecific POSITIVE H Crossmatch See Detail Progress Note: A&P Assessment and plan (1) Anemia: Status: Acute (2) Coagulopathy: Status: Acute (3) Klebsiella sepsis: Status: Acute (4) End stage renal failure untreated by renal replacement therapy: Status: Acute (5) Status epilepticus due to complex partial seizure: Status: Acute (6) Hypocalcemia: Status: Acute (7) Hypernatremia: Status: Acute (8) COVID-19: Status: Acute (9) Renal failure: Status: Acute (10) Metabolic acidosis: Status: Acute (11) Acute bullous dermatitis: Status: Acute (12) Magnesium deficiency: Status: Acute (13) Hypokalemia due to loss of potassium: Status: Acute Assessment and Plan: so for today there is no acute need for dialysis but this is close and I have explained this to the son who is the healthcare proxy and and relating this to the recent bullous dermatitis could represent autoimmune disease and possible associated IgA nephropathy so we are looking for consent for a renal biopsy and will continue to follow the hemoglobin to see if transfusion becomes necessary but right now she is asymptomatic with hemoglobin 6.6 and was still waiting on for a pathology report on a simple CBC slide which is not yet forthcoming for some reason bedside echo showed no evidence of endocarditis and LV and RV function were normal Time Spent With Patient Time: Total time spent is greater than 50% in coordination of care (as documented) at patient's floor/unit and/or counseling patient: Total time spent with greater than 50% in coordination of care (as documented) at patient's floor/unit and/or counseling patient:: 45
[2020-06-04 13:18] LABS: Creatinine Urine 22.62 mg/dL; Total Protein Urine Random 65 mg/dL (<12)
[2020-06-04 14:09] LABS: EOS Counted 1 CELLS; WBC, Counted 100 CELLS
[2020-06-04 14:10] LABS: EOS QC POS YES; EOS Stain Quality OK YES
--- NOTE | 2020-06-04 15:25 | PC.NURSE ---
SE ST STABLE B/P ROOM AIR SATS WNL NPO, TOOK AM MEDICATIONS GAGGING ON TEXTURE OF APPLESAUCE 5 STOOLS BARRIER CREAM AND ZINC TO PRESSURE INJURY OOB TO COMMODE MAX ASSIST, LEFT LEGS DOES NOT MOVE. SON INTO SEE PT AWAITS RENAL BIOPSY MAG AND K REPLACEMENT
[2020-06-04 16:00] LABS: Basophils Percent Auto 0.2 % (0-2); Eosinophils Absolute Auto 0.5 X10*3/uL (0.0-0.4); Eosinophils Percent Auto 10.9 % (0-4); Hematocrit 22.8 % (37-47); Hemoglobin 7.3 g/dl (12.0-16.0); Imm Gran Abs Auto 0.02 X10*3/uL (0.00-0.03); Imm Gran Pct Auto 0.4 % (0.0-0.4); Lymphocytes Absolute Auto 0.7 X10*3/uL (1.2-4.9); Lymphocytes Percent Auto 14.4 % (20-40); MANUAL DIFF FLAG SCAN; Mean Corpuscular Volume 87.4 fL (80-98); Mean Platelet Volume 11.1 fL (9.4-12.3); Monocytes Absolute Auto 0.6 X10*3/uL (0.1-1.2); Monocytes Percent Auto 13.5 % (2-11); Neutrophils Absolute Auto 2.7 X10*3/uL (2.0-8.3); Neutrophils Percent Auto 60.6 % (45-73); Platelet Count 211 X10*3/uL (160-400); Red Blood Count 2.61 X10*6/uL (4.20-5.50); Red Cell Distribution Width 16.7 % (11.0-16.0); SCAN SMEAR FLAG 1; White Blood Count 4.5 X10*3/uL (4.8-10.8)
[2020-06-04 16:27] LABS: SLIDE REVIEW VERIFIED
[2020-06-04] MEDS: Melatonin 3 MG TABLET 6 MG PO (20:07)
[2020-06-04 21:21] LABS: Calcium (PTHI) 6.4 mg/dL (8.6-10.4); PTHI 213 pg/mL (14-64)
[2020-06-05] VITALS (10 sets, daily range): BP systolic 126–165; BP diastolic 74–90; PULSE 69–90; RESP 14–20; TEMP 36.8–37.2; O2SAT 91–100; BMI 19.1
[2020-06-05 05:10] LABS: Basophils Percent Auto 0.4 % (0-2); Eosinophils Absolute Auto 0.6 X10*3/uL (0.0-0.4); Eosinophils Percent Auto 11.3 % (0-4); Hematocrit 23.1 % (37-47); Hemoglobin 7.1 g/dl (12.0-16.0); Imm Gran Abs Auto 0.03 X10*3/uL (0.00-0.03); Imm Gran Pct Auto 0.6 % (0.0-0.4); Lymphocytes Absolute Auto 0.7 X10*3/uL (1.2-4.9); Lymphocytes Percent Auto 14.2 % (20-40); MANUAL DIFF FLAG SCAN; Mean Corpuscular HGB Conc 30.7 g/dl (31.0-35.0); Mean Corpuscular Hemoglobin 27.4 pg (27.0-33.0); Mean Corpuscular Volume 89.2 fL (80-98); Mean Platelet Volume 12.4 fL (9.4-12.3); Monocytes Absolute Auto 0.7 X10*3/uL (0.1-1.2); Monocytes Percent Auto 15.2 % (2-11); Neutrophils Absolute Auto 2.8 X10*3/uL (2.0-8.3); Neutrophils Percent Auto 58.3 % (45-73); Platelet Count 229 X10*3/uL (160-400); Red Blood Count 2.59 X10*6/uL (4.20-5.50); SCAN SMEAR FLAG 1; White Blood Count 4.9 X10*3/uL (4.8-10.8)
[2020-06-05 05:15] LABS: INTERNATIONAL NORM RATIO 1.1 (0.9-1.1); Prothrombin Time 12.8 SEC (10.8-13.0)
[2020-06-05 05:18] LABS: D Dimer 580 NG/ML
[2020-06-05 05:39] LABS: Base Excess VBG -11.3 mmol/L; Blood Gas Serial # 5414; HCO3 VBG 13 mmol/L; Oxygen Saturation VBG 71.2 %; PCO2 VBG 24 mmhg; PO2 VBG 36 mmhg; pH VBG 7.35 (7.32-7.43)
[2020-06-05 05:45] LABS: SLIDE REVIEW VERIFIED
[2020-06-05] MEDS: levETIRAcetam in NaCl (iso-os) 500 MG/100 ML PIGGYBACK 400 MG IV ×2 (06:15→17:30)
[2020-06-05] MEDS: 0.9 % Sodium Chloride Flush 3 ML SYRINGE IVFLUSH ×4 (06:16→21:18)
[2020-06-05] MEDS: Heparin Sodium,Porcine 5,000 UNIT/ML VIAL 5000 UNIT SUBCUT (06:17)
[2020-06-05 07:42] LABS: Alanine Aminotransferase < 6 U/L (0-31); Albumin Level 2.6 g/dL (3.5-5.0); Alkaline Phosphatase 110 U/L (39-117); Anion Gap 23 (12-20); Aspartate Amino Transferase 13 U/L (5-31); Bilirubin Total 0.3 mg/dL (0.0-1.0); Blood Urea Nitrogen 49 mg/dL (9-16); Calcium 6.9 mg/dL (8.4-10.2); Carbon Dioxide 11 mmol/L (22-29); Chloride 111 mmol/L (96-108); Creatinine Clr Calc Pharmacy 9.4; Estimated Glomerular Filt Rate 9; Glucose Random 95 mg/dL (60-115); Magnesium 1.9 mg/dL (1.6-2.6); Phosphorus 3.4 mg/dL (2.7-4.5); Potassium 4.2 mmol/l (3.3-5.1); Sodium 141 mmol/L (135-145); Total Protein 6.9 g/dL (6.5-8.0)
[2020-06-05 08:15] LABS: Partial Thromboplastin Time 46.5 SEC (24.1-38.0)
--- NOTE | 2020-06-05 08:16 | P.PNCC_ITS ---
Subjective Subjective Date of Service: 06/05/20 Interval History: 59-year-old female type 2 diabetic apparently well until early April diagnosed with COVID-19 had some respiratory insufficiency never requiring intubation had a previous history of a subarachnoid and apparently traumatic she had a witnessed seizure they started her on Tegretol and shortly thereafter they noticed a diffuse a bolus rash and apparently by biopsy an IgA bullous dermatitis and and with severe mucosal involvement in the treated her as a burn she developed both Klebsiella as well as MSSA sepsis and has been on cefazolin now for 4 out of the required 6 weeks presented here with again a witnessed status epilepticus which was focal involving her left side in addition to acute on chronic stage 5 renal failure with severe metabolic acidosis and hypernatremia and significant leukopenia as well as anemia and evidence of a coagulopathy with a PTT elevation of 74 with aggressive hydration and bicarb replacement she now has and improvement in creatinine from 6.5 down to 5.1 azotemia is also improving her serum bicarb is gradually and slowly elevating with the ever diminishing anion gap her and the degree of hyperchloremia is also improving the seizure was treated with Versed which stopped it and then Keppra which seems to be prevent Ng and she had complete resolution of her postictal state and now has a good sikhism of cognitive function feeling better the anemia has plateaued with a hemoglobin of 7.1 and apparently it was direct Zaynab positive and I do believe that the cephazolin was causing a hemolytic anemia as well as contributing to the progressive renal failure so since to cephazolin was stopped everything seems to be improving we just simply need follow-up on that sedimentation rate of 100 and she might need surveillance blood cultures due to prove that the MSSA does not need any further treatment and my bedside echo has confirmed that there is no evidence of valvular disease and she has class 1 LV and RV function Physical Exam Vital Signs: Vital Signs: Vital Signs Temp Pulse Resp BP Pulse Ox 06/05/20 07:58 98.8 F 90 19 130/89 06/05/20 06:58 98.8 F 78 17 139/76 06/05/20 02:59 98.8 F 75 14 149/77 H 100 06/05/20 01:46 98.6 F 70 20 148/90 H 100 06/05/20 00:55 98.8 F 73 14 145/85 H 100 06/04/20 23:49 98.8 F 77 16 142/82 H 100 06/04/20 22:45 98.4 F 83 13 142/82 H 100 06/04/20 21:59 98.6 F 76 17 143/80 H 100 06/04/20 20:40 98.8 F 77 17 164/84 H 100 06/04/20 19:49 98.8 F 85 19 140/87 H 06/04/20 19:00 99.0 F 79 21 H 140/87 H 06/04/20 17:57 98.8 F 86 17 115/93 H 06/04/20 16:55 99 F 88 21 H 173/90 H 06/04/20 15:54 99 F 77 18 183/93 H 06/04/20 15:00 98.8 F 83 24 H 137/92 H 06/04/20 14:00 98.6 F 79 20 142/83 H 100 06/04/20 13:00 74 20 140/78 H 06/04/20 12:00 98.6 F 89 18 158/87 H 100 06/04/20 11:00 98.6 F 81 18 148/70 H 06/04/20 10:00 99.0 F 85 23 H 156/115 H 100 06/04/20 09:00 98.6 F 105 H 19 158/82 H 100 06/04/20 08:50 88 06/04/20 08:49 88 Body Mass Index 18.3 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 without any open sores and no cellulitis and no acrocyanosis abdomen benign no bruits no tenderness no again a megaly cardiac exam with normal S1 and normal S2 but no gallops or murmurs chest percussed equally with no clinical pleural effusion and no adventitious sounds Objective Data Labs CBC & Chem 7: 06/05/20 04:46 06/05/20 04:46 Labs: Laboratory Results - last 24 hr 06/03/20 06/04/20 06/04/20 06:49 04:39 10:24 WBC RBC Hgb Hct MCV MCH MCHC RDW Plt Count MPV Immature Gran % (Auto) Neut % (Auto) Lymph % (Auto) Henderson % (Auto) Eos % (Auto) Baso % (Auto) Lymph # (Auto) Henderson # (Auto) Eos # (Auto) Baso # (Auto) Abs Immat Gran (auto) Absolute Neuts (auto) Absolute Nucleated RBC Nucleated RBC % (auto) Smear Tech's Comments Smear Path Review SEE NOTE PT INR D-Dimer VBG pH VBG pCO2 VBG Oxygen Liters/Min VBG pO2 VBG HCO3 VBG O2 Saturation VBG Base Excess Sodium Potassium Chloride Carbon Dioxide Anion Gap BUN Creatinine Estim Creat Clear Calc Estimated GFR Random Glucose Calcium Phosphorus Magnesium Total Bilirubin AST ALT Alkaline Phosphatase Total Protein Albumin PTH Intact 213 H Calcium (PTH Intact) 6.4 L Ur WBC Total Counted Urine Eosinophils Urine Eosinophils % U Random Total Protein 65 H Urine Creatinine 22.62 06/04/20 06/04/20 06/05/20 10:25 15:40 04:46 WBC 4.5 L RBC 2.61 L Hgb 7.3 L Hct 22.8 L MCV 87.4 MCH 28.0 MCHC 32.0 RDW 16.7 H Plt Count 211 MPV 11.1 Immature Gran % (Auto) 0.4 Neut % (Auto) 60.6 Lymph % (Auto) 14.4 L Henderson % (Auto) 13.5 H Eos % (Auto) 10.9 H Baso % (Auto) 0.2 Lymph # (Auto) 0.7 L Henderson # (Auto) 0.6 Eos # (Auto) 0.5 H Baso # (Auto) 0.0 Abs Immat Gran (auto) 0.02 Absolute Neuts (auto) 2.7 Absolute Nucleated RBC 0.000 Nucleated RBC % (auto) 0.0 Smear Tech's Comments VERIFIED Smear Path Review PT 12.8 INR 1.1 D-Dimer 580 VBG pH VBG pCO2 VBG Oxygen Liters/Min VBG pO2 VBG HCO3 VBG O2 Saturation VBG Base Excess Sodium Potassium Chloride Carbon Dioxide Anion Gap BUN Creatinine Estim Creat Clear Calc Estimated GFR Random Glucose Calcium Phosphorus Magnesium Total Bilirubin AST ALT Alkaline Phosphatase Total Protein Albumin PTH Intact Calcium (PTH Intact) Ur WBC Total Counted 100 Urine Eosinophils 1 Urine Eosinophils % 1.0 U Random Total Protein Urine Creatinine 06/05/20 06/05/20 06/05/20 04:46 04:46 04:46 WBC 4.9 RBC 2.59 L Hgb 7.1 L Hct 23.1 L MCV 89.2 MCH 27.4 MCHC 30.7 L RDW 17.0 H Plt Count 229 MPV 12.4 H Immature Gran % (Auto) 0.6 H Neut % (Auto) 58.3 Lymph % (Auto) 14.2 L Henderson % (Auto) 15.2 H Eos % (Auto) 11.3 H Baso % (Auto) 0.4 Lymph # (Auto) 0.7 L Henderson # (Auto) 0.7 Eos # (Auto) 0.6 H Baso # (Auto) 0.0 Abs Immat Gran (auto) 0.03 Absolute Neuts (auto) 2.8 Absolute Nucleated RBC 0.000 Nucleated RBC % (auto) 0.0 Smear Tech's Comments VERIFIED Smear Path Review PT INR D-Dimer VBG pH 7.35 VBG pCO2 24 VBG Oxygen Liters/Min TNP VBG pO2 36 VBG HCO3 13 VBG O2 Saturation 71.2 VBG Base Excess -11.3 Sodium 141 Potassium 4.2 D Chloride 111 H Carbon Dioxide 11 L Anion Gap 23 H BUN 49 H Creatinine 5.13 H* Estim Creat Clear Calc 9.4 Estimated GFR 9 Random Glucose 95 Calcium 6.9 L Phosphorus 3.4 Magnesium 1.9 Total Bilirubin 0.3 AST 13 ALT < 6 Alkaline Phosphatase 110 Total Protein 6.9 Albumin 2.6 L PTH Intact Calcium (PTH Intact) Ur WBC Total Counted Urine Eosinophils Urine Eosinophils % U Random Total Protein Urine Creatinine 06/05/20 06/05/20 04:46 04:46 WBC RBC Hgb Hct MCV MCH MCHC RDW Plt Count MPV Immature Gran % (Auto) Neut % (Auto) Lymph % (Auto) Henderson % (Auto) Eos % (Auto) Baso % (Auto) Lymph # (Auto) Henderson # (Auto) Eos # (Auto) Baso # (Auto) Abs Immat Gran (auto) Absolute Neuts (auto) Absolute Nucleated RBC Nucleated RBC % (auto) Smear Tech's Comments Smear Path Review PT Cancelled INR Cancelled D-Dimer VBG pH VBG pCO2 VBG Oxygen Liters/Min VBG pO2 VBG HCO3 VBG O2 Saturation VBG Base Excess Sodium Cancelled Potassium Cancelled Chloride Cancelled Carbon Dioxide Cancelled Anion Gap Cancelled BUN Cancelled Creatinine Cancelled Estim Creat Clear Calc Cancelled Estimated GFR Cancelled Random Glucose Cancelled Calcium Cancelled Phosphorus Magnesium Total Bilirubin Cancelled AST Cancelled ALT Cancelled Alkaline Phosphatase Cancelled Total Protein Cancelled Albumin Cancelled PTH Intact Calcium (PTH Intact) Ur WBC Total Counted Urine Eosinophils Urine Eosinophils % U Random Total Protein Urine Creatinine Progress Note: A&P Assessment and plan (1) Hypokalemia due to loss of potassium: Status: Acute (2) Magnesium deficiency: Status: Acute (3) Acute bullous dermatitis: Status: Acute (4) Anemia: Status: Acute (5) Coagulopathy: Status: Acute (6) Vivas-Kemal syndrome: Status: Acute (7) Klebsiella sepsis: Status: Acute (8) End stage renal failure untreated by renal replacement therapy: Status: Acute (9) Status epilepticus due to complex partial seizure: Status: Acute (10) Hypocalcemia: Status: Acute (11) Hypernatremia: Status: Acute (12) COVID-19: Status: Acute (13) Renal failure: Status: Acute (14) Metabolic acidosis: Status: Acute Assessment and Plan: so the acute component of renal failure is resolving slowly her normal creatinine ranging between 3.7 and 4.5 and she is now down to 5.1 slow resolution of metabolic acidosis and azotemia leukopenia slowly resolving and the anemia seems to be slowly resolving and this may all have been drug induced by the cephalosporin cephalosporin may also have caused interstitial nephritis which seems to be r esolving she should remain on Levaquin for at least 10 more days to complete treatment for Klebsiella sepsis we have a pending consent for a renal biopsy which was postponed because of an elevated PTT and we are awaiting a mixing study to see if the PTT resolves and were specifically looking to rule out and IgA nephropathy would recommend continuing all the above medications and gentle IV fluid replacement and because she has no scheduled procedure today and because she has not had a recurrent seizure in 2 days we can begin a diet Time Spent With Patient Time: Total time spent is greater than 50% in coordination of care (as documented) at patient's floor/unit and/or counseling patient: Total time spent with greater than 50% in coordination of care (as documented) at patient's floor/unit and/or counseling patient:: 35
--- NOTE | 2020-06-05 10:35 | PM.PNNEP ---
Subjective Subjective Interval history: Events noted Discussed with team Non oliguric Cr is trending down Physical Exam Vital Signs: Vital Signs: Vital Signs Temp Pulse Resp BP Pulse Ox 06/05/20 09:00 99.0 F 69 17 128/75 06/05/20 07:58 98.8 F 90 19 130/89 06/05/20 06:58 98.8 F 78 17 139/76 06/05/20 02:59 98.8 F 75 14 149/77 H 100 06/05/20 01:46 98.6 F 70 20 148/90 H 100 06/05/20 00:55 98.8 F 73 14 145/85 H 100 06/04/20 23:49 98.8 F 77 16 142/82 H 100 06/04/20 22:45 98.4 F 83 13 142/82 H 100 06/04/20 21:59 98.6 F 76 17 143/80 H 100 06/04/20 20:40 98.8 F 77 17 164/84 H 100 06/04/20 19:49 98.8 F 85 19 140/87 H 06/04/20 19:00 99.0 F 79 21 H 140/87 H 06/04/20 17:57 98.8 F 86 17 115/93 H 06/04/20 16:55 99 F 88 21 H 173/90 H 06/04/20 15:54 99 F 77 18 183/93 H 06/04/20 15:00 98.8 F 83 24 H 137/92 H 06/04/20 14:00 98.6 F 79 20 142/83 H 100 06/04/20 13:00 74 20 140/78 H 06/04/20 12:00 98.6 F 89 18 158/87 H 100 06/04/20 11:00 98.6 F 81 18 148/70 H Body Mass Index 18.3 Const: General: ill appearing Cardio: Heart sounds: no rubs GI: Auscultation: normal bowel sounds Neuro: Motor exam (neuro): No Asterixis during motor activity present Assessment & Plan Assessment and plan (1) Renal failure: Status: Acute Assessment and Plan: Minimal improvement in creatinine No absolute indication for dialysis yet Watch urine output Continue to avoid nephrotoxins Currently with 3 gm proteinuria Ordered C3/C4/ANCA,SPEP/UPEP Needs kidney biopsy to r/o AGN /Interstitial nephritis- Biopsy based on correction of coagulopathy (2) Metabolic acidosis: Status: Acute Assessment and Plan: Bicarb remains low but improving (3) Hypernatremia: Status: Acute Assessment and Plan: Rapid correction of Na Na is aceptable (4) Hypocalcemia: Status: Acute Assessment and Plan: Ca has drifted down Agree with supplement iPTH elevated- suggestive of SHPT- shall add CALCITRIOL 0.5 mg QD
[2020-06-05] MEDS: carvediloL 12.5 MG TABLET PO ×2 (10:55→21:17)
[2020-06-05] MEDS: Famotidine 20 MG TABLET PO ×2 (10:55→21:17)
[2020-06-05] MEDS: Sodium Bicarbonate 650 MG TABLET PO ×3 (10:55→21:17)
[2020-06-05] MEDS: amLODIPine Besylate 10 MG TABLET PO (10:56)
[2020-06-05] MEDS: levoFLOXacin/D5W 250 MG/50 ML PIGGYBACK 50 MG IV (11:01)
[2020-06-05] MEDS: Calcium Acetate 667 MG CAPSULE 1334 MG PO ×2 (12:22→17:30)
--- NOTE | 2020-06-05 14:08 | MHC.CLN ---
F/U IF DIET TO ADVANCE; RECOMMEND 1500 DM 2GM NA LOW K+, LOW PHOS DIET IN ADDITION, START SRINIVASA AND GLUCERNA BID TO PROMOTE WOUND HEALING
[2020-06-05] MEDS: Melatonin 3 MG TABLET 6 MG PO (21:17)
[2020-06-06] VITALS (9 sets, daily range): BP systolic 123–144; BP diastolic 69–81; PULSE 79–95; RESP 18–20; TEMP 36.6–37; O2SAT 95–100
[2020-06-06 06:31] LABS: Hemoglobin 7.3 g/dl (12.0-16.0); Mean Corpuscular HGB Conc 30.4 g/dl (31.0-35.0); Mean Corpuscular Hemoglobin 27.8 pg (27.0-33.0); Mean Corpuscular Volume 91.3 fL (80-98); Mean Platelet Volume 12.6 fL (9.4-12.3); Platelet Count 219 X10*3/uL (160-400); Red Blood Count 2.63 X10*6/uL (4.20-5.50); Red Cell Distribution Width 16.8 % (11.0-16.0); White Blood Count 4.7 X10*3/uL (4.8-10.8)
[2020-06-06 06:51] LABS: Lactate Dehydrogenase 277 U/L (122-220)
[2020-06-06 06:52] LABS: INTERNATIONAL NORM RATIO 1.1 (0.9-1.1); Prothrombin Time 12.6 SEC (10.8-13.0)
[2020-06-06 06:54] LABS: Partial Thromboplastin Time 36.5 SEC (24.1-38.0)
[2020-06-06 07:02] LABS: Creatinine Urine 39.01 mg/dL
[2020-06-06 07:12] LABS: Anion Gap 23 (12-20); Blood Urea Nitrogen 41 mg/dL (9-16); Calcium 7.5 mg/dL (8.4-10.2); Carbon Dioxide 12 mmol/L (22-29); Chloride 114 mmol/L (96-108); Creatinine Clr Calc Pharmacy 11.1; Estimated Glomerular Filt Rate 10; Glucose Random 89 mg/dL (60-115); Potassium 5.2 mmol/l (3.3-5.1); Sodium 144 mmol/L (135-145)
[2020-06-06 08:24] LABS: Glucose, Whole Blood 75 mg/dL (60-115)
[2020-06-06] MEDS: Famotidine 20 MG TABLET PO ×2 (08:48→21:00)
[2020-06-06] MEDS: amLODIPine Besylate 10 MG TABLET PO (08:48)
[2020-06-06] MEDS: Calcium Acetate 667 MG CAPSULE 1334 MG PO ×3 (08:48→16:08)
[2020-06-06] MEDS: Sodium Bicarbonate 650 MG TABLET PO ×3 (08:48→21:00)
[2020-06-06] MEDS: carvediloL 12.5 MG TABLET PO ×2 (08:49→21:00)
[2020-06-06] MEDS: 0.9 % Sodium Chloride Flush 3 ML SYRINGE IVFLUSH ×4 (08:49→21:33)
[2020-06-06] MEDS: Sodium Polystyrene Sulfon/Sorb 15 GM/60 ML ORAL.SUSP PO (08:54)
--- NOTE | 2020-06-06 10:32 | PM.PNNEP ---
Subjective Subjective Interval history: Events noted Discussed with team Non oliguric Cr is trending down Physical Exam Vital Signs: Vital Signs: Vital Signs Temp Pulse Resp BP Pulse Ox 06/06/20 08:49 79 123/79 06/06/20 08:48 79 123/79 06/06/20 08:00 98.6 F 84 18 140/81 H 100 06/06/20 04:00 98.6 F 86 20 128/72 100 06/06/20 00:00 98.6 F 82 18 129/69 100 06/05/20 19:59 98.2 F 84 18 165/74 H 91 L 06/05/20 15:49 98.6 F 76 18 126/74 96 06/05/20 10:56 77 128/75 06/05/20 10:55 77 128/75 Body Mass Index 19.1 Const: General: ill appearing Cardio: Heart sounds: no rubs GI: Auscultation: normal bowel sounds Neuro: Motor exam (neuro): No Asterixis during motor activity present Assessment & Plan Assessment and plan (1) Renal failure: Status: Acute Assessment and Plan: Continued improvement in creatinine No absolute indication for dialysis yet Watch urine output Continue to avoid nephrotoxins Currently with 3 gm proteinuria C3/C4/ANCA,SPEP/UPEP - PENDING Needs kidney biopsy to r/o AGN /Interstitial nephritis- Biopsy based on correction of coagulopathy /Anemia (2) Metabolic acidosis: Status: Acute Assessment and Plan: Bicarb remains low but improving (3) Hypernatremia: Status: Acute Assessment and Plan: Rapid correction of Na Na is aceptable (4) Hypocalcemia: Status: Acute Assessment and Plan: Ca has drifted down Agree with supplement iPTH elevated- suggestive of SHPT- Added CALCITRIOL 0.5 mg QD
--- NOTE | 2020-06-06 11:53 | P.CNID_ITS ---
History of Present Illness Data of Consult Service Date: 06/06/20 Requesting physician: Ann Zarate Primary Care Provider: Unknown Physician HPI Reason for consult: infection Klebsiella,MRSA She has had course Kefzol 4/6 week MRSA,Klebsiella blood She is now on po Levaquin She has Had IgAbullous disease/Vancomycin Review of Systems Constitutional: Constitutional: Reports no additional constitutional complaints Neurologic: Denies Sensory deficit (Neuro) [facility] Past Medical History Medical History (Updated 06/09/20 @ 15:18 by Kemar Amaral MD) Acute bullous dermatitis End stage renal failure untreated by renal replacement therapy Klebsiella sepsis 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 Social History Social History Household Members: Unknown / Unable to assess Housing: Unknown / Unable to assess Alcohol intake: unknown Smoking Status: Unknown if ever smoked Use of substances other than those prescribed or required for medical reasons: Unknown Currently Displaying Signs/Symptoms of Drug Intoxication Withdrawal: No Spiritual Healthcare Practices: unable to assess Jainism Healthcare Practices: unable to assess Cultural Healthcare Practices: unable to assess Advance Directives: No Advance Directives Information Provided: No Do you have thoughts of harming others: None Do you have a plan to hurt others: No Plan Recently lost weight without trying: Unsure service: No Current occupational status: unemployed Meds Allergies Allergy/AdvReac Type Severity Reaction Status Date / Time No Known Allergies Allergy Verified 06/01/20 19:04 Home Medications Medication Instructions Recorded Confirmed Type acetaminophen 650 mg PO Q6H PRN 06/02/20 06/02/20 History acetaminophen 975 mg PO TID 06/02/20 06/02/20 History amlodipine 10 mg PO DAILY 06/02/20 06/02/20 History baclofen 5 mg PO BID 06/02/20 06/02/20 History bisacodyl 10 mg KS DAILY PRN 06/02/20 06/02/20 History calcium acetate 1,334 mg PO TID 06/02/20 06/02/20 History carvedilol [Coreg] 12.5 mg PO BID 06/02/20 06/02/20 History cefazolin in 0.9% sod chloride 100 ml IV BID 06/02/20 06/02/20 History dextrose [Glucose Gel] 15 g PO Q15M PRN 06/02/20 06/02/20 History diphenhydramine HCl 25 mg PO TID PRN 06/02/20 06/02/20 History famotidine 20 mg PO BID 06/02/20 06/02/20 History fexofenadine 180 mg PO DAILY 06/02/20 06/02/20 History furosemide [Lasix] 20 mg PO DAILY 06/02/20 06/02/20 History glucagon 1 mg NEEDED 06/02/20 06/02/20 History hydroxyzine HCl 25 mg PO TID 06/02/20 06/02/20 History magnesium hydroxide [Milk of 10 ml PO DAILY PRN 06/02/20 06/02/20 History Magnesia] melatonin 5 mg PO BEDTIME 06/02/20 06/02/20 History omeprazole [Prilosec] 20 mg PO BID 06/02/20 06/02/20 History ondansetron 4 mg PO Q6H PRN 06/02/20 06/02/20 History polyethylene glycol 3350 [Miralax] 17 g PO DAILY 06/02/20 06/02/20 History sennosides [senna] 8.6 mg PO DAILY PRN 06/02/20 06/02/20 History sertraline [Zoloft] 50 mg PO DAILY 06/02/20 06/02/20 History sodium bicarbonate 650 mg PO TID 06/02/20 06/02/20 History sodium phosphates [Fleet Enema] 118 ml [place] DAILY PRN 06/02/20 06/02/20 History Physical Exam Vital Signs: Vital Signs: Vital Signs Temp Pulse Resp BP Pulse Ox 06/06/20 11:51 98.2 F 84 18 136/78 95 06/06/20 08:49 79 123/79 06/06/20 08:48 79 123/79 06/06/20 08:00 98.6 F 84 18 140/81 H 100 06/06/20 04:00 98.6 F 86 20 128/72 100 06/06/20 00:00 98.6 F 82 18 129/69 100 06/05/20 19:59 98.2 F 84 18 165/74 H 91 L 06/05/20 15:49 98.6 F 76 18 126/74 96 Body Mass Index 19.1 Const: General: cooperative HENMT: Head: Yes normal to inspection Ears: hearing grossly normal bilaterally Mouth: oropharynx normal Resp: Effort & Inspection: normal respiratory effort Cardio: Rate: regular rate Rhythm: regular rhythm GI: Inspection: Yes normal to inspection Skin: Other: scaling circular skin lesions improving Neuro: Sensory Exam: No Sensory deficit (Neuro) Assessment and Plan (1) Klebsiella sepsis: Problem details: Resolving Klebsiella sepsis Improving Levaquin Status: Acute Levaquin per dose determined per Pharmacy F/U renal (2) End stage renal failure untreated by renal replacement therapy: Status: Acute (3) Status epilepticus due to complex partial seizure: Status: Acute Results Labs CBC & Chem 7: 06/09/20 08:25 06/08/20 16:47 Labs: Short CBC 06/06/20 Range/Units 06:01 WBC 4.7 L (4.8-10.8) X10*3/uL Hgb 7.3 L (12.0-16.0) g/dl Hct 24.0 L (37-47) % Plt Count 219 (160-400) X10*3/uL BMP 06/06/20 06:01 Sodium 144 Potassium 5.2 H D Chloride 114 H Carbon Dioxide 12 L BUN 41 H Creatinine 4.55 H* Calcium 7.5 L
[2020-06-06 12:04] LABS: Glucose, Whole Blood 82 mg/dL (60-115)
[2020-06-06 12:22] LABS: Complement C3 128 mg/dL (83-193)
--- NOTE | 2020-06-06 13:16 | P.CNHO_ITS ---
Subjective - Subjective Chief complaint: consult for: Leukopenia, anemia. Patient: new to practice Primary Care Provider: Unknown Physician Medical Summary: DIAGNOSIS: 1. LEUKOPENIA. 2. ANEMIA. HPI - Consult Narrative Reason for consult: CONSULT FOR: ANEMIA AND LEUKOPENIA. 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 she was transferred to rehab. she presented 06/02 with cough and tachycardia. On admission there was no fever hypotension or hypoxia. lab data in the ER revealed a creatinine of 6.1, K 6.3 C 0 2 less than 5. ABG: PH 7.1, pCO2 11, bicarb 0 4. She was treated with calcium gluconate, insulin, am of D50 and Kayexalate. She had some nausea and vomiting. Lactic acid 1.8. She does have a history of being COVID 19 positive. Review of her serial labs revealed the following trend: 06/03, 06/04, 06/05, 06/06 WBC 3.9. 3.4. 4.5. 4.7. HGB. 7.1. 6.6. 7.3. 7.3. Her platelet count has been normal. Hospital course complicated by the development of Klebsiella bacteremia. She is on Levaquin for that. She is being followed by renal. Their impression: Continued improvement in creatinine No absolute indication for dialysis yet Watch urine output Continue to avoid nephrotoxins Currently with 3 gm proteinuria C3/C4/ANCA,SPEP/UPEP - PENDING A hematology consultation has been called. Review of Systems - Constitutional Reports lack of energy - Eyes Reports blurry vision - ENT Reports system reviewed and no additional complaints, except as documented - Cardiovascular Denies chest pain at rest - Respiratory Denies cough - Gastrointestinal Reports abdominal pain, Reports change in bowel habits - Neurologic Denies sensory deficit - Psychiatric Reports anxiety - Endocrine Denies cold intolerance [facility] Medical History: Medical History (Last Reviewed 06/13/20 @ 13:19 by Mirella Alford PT) Acute bullous dermatitis End stage renal failure untreated by renal replacement therapy Klebsiella sepsis 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 Smoking status: Unknown if ever smoked Home Medications and Allergies Current Medications: Current Medications Generic Name Dose Route Start Last Admin Trade Name Freq PRN Reason Stop Dose Admin Amlodipine Besylate 10 mg 06/02/20 13:00 06/06/20 08:48 Amlodipine Besylate 10 Mg Tablet PO 10 mg DAILY [facility] Administration Protocol Bisacodyl 10 mg 06/02/20 12:53 Bisacodyl 10 Mg Supp.Rect VT DAILY PRN Constipation Calcitriol 0.5 mcg 06/06/20 14:00 Calcitriol Oral Soln 0.25 Mcg/0.25 Ml Solution PO DAILY [facility] Calcium Acetate 1,334 mg 06/02/20 17:00 06/06/20 13:09 Calcium Acetate 667 Mg Capsule PO 1,334 mg TIDWM [facility] Administration Carvedilol 12.5 mg 06/02/20 13:00 06/06/20 08:49 Carvedilol 12.5 Mg Tablet PO 12.5 mg BID [facility] Administration Protocol Famotidine 20 mg 06/02/20 21:00 06/06/20 08:48 Famotidine 20 Mg Tablet PO 20 mg BID [facility] Administration Levofloxacin 250 mg in 50 mls @ 50 mls/hr 06/05/20 11:00 06/05/20 12:06 Levaquin IV Infused Q48H [facility] Infusion Levetiracetam 500 mg/ Sodium 105 mls @ 400 mls/hr 06/06/20 05:00 06/06/20 05:32 Chloride IV Infused Q12H [facility] Infusion Melatonin 6 mg 06/02/20 21:00 06/05/20 21:17 Melatonin 3 Mg Tablet PO 6 mg BEDTIME [facility] Administration Senna 8.6 mg 06/02/20 12:53 Sennosides 8.6 Mg Tablet PO DAILY PRN Constipation Sodium Bicarbonate 650 mg 06/02/20 15:00 06/06/20 13:09 Sodium Bicarbonate 650 Mg Tablet PO 650 mg TID [facility] Administration Sodium Chloride 3 ml 06/02/20 08:00 06/06/20 08:49 0.9 % Sodium Chloride Flush 3 Ml Syringe IVFLUSH 3 ml QSHIFT [facility] Administration Sodium Chloride 3 ml 06/06/20 16:00 0.9 % Sodium Chloride Flush 3 Ml Syringe IVFLUSH QSWAFT [facility] Home Medications Medication Instructions Recorded Confirmed Type Fleet Enema 118 ml [place] DAILY PRN 06/02/20 06/02/20 History acetaminophen 650 mg PO Q6H PRN 06/02/20 06/02/20 History acetaminophen 975 mg PO TID 06/02/20 06/02/20 History amlodipine 10 mg PO DAILY 06/02/20 06/02/20 History baclofen 5 mg PO BID 06/02/20 06/02/20 History bisacodyl 10 mg VT DAILY PRN 06/02/20 06/02/20 History calcium acetate 1,334 mg PO TID 06/02/20 06/02/20 History carvedilol [Coreg] 12.5 mg PO BID 06/02/20 06/02/20 History dextrose [Glucose Gel] 15 g PO Q15M PRN 06/02/20 06/02/20 History diphenhydramine HCl 25 mg PO TID PRN 06/02/20 06/02/20 History famotidine 20 mg PO BID 06/02/20 06/02/20 History fexofenadine 180 mg PO DAILY 06/02/20 06/02/20 History glucagon 1 mg NEEDED 06/02/20 06/02/20 History hydroxyzine HCl 25 mg PO TID 06/02/20 06/02/20 History magnesium hydroxide [Milk of 10 ml PO DAILY PRN 06/02/20 06/02/20 History Magnesia] melatonin 5 mg PO BEDTIME 06/02/20 06/02/20 History omeprazole 20 mg PO BID 06/02/20 06/02/20 History ondansetron 4 mg PO Q6H PRN 06/02/20 06/02/20 History polyethylene glycol 3350 [Miralax] 17 g PO DAILY 06/02/20 06/02/20 History sennosides [senna] 8.6 mg PO DAILY PRN 06/02/20 06/02/20 History sertraline [Zoloft] 50 mg PO DAILY 06/02/20 06/02/20 History sodium bicarbonate 650 mg PO TID 06/02/20 06/02/20 History Allergies Allergy/AdvReac Type Severity Reaction Status Date / Time No Known Allergies Allergy Verified 06/01/20 19:04 Physical Exam Vital signs: Vital Signs Temp 98.2 F 06/06/20 11:51 Pulse 84 06/06/20 11:51 Resp 18 06/06/20 11:51 BP 136/78 06/06/20 11:51 Pulse Ox 95 06/06/20 11:51 Intake & Output 06/05/20 06/06/20 06/06/20 18:59 06:59 18:59 Intake Total 1307.3 / 1532.3 225 / 1532.3 1010 / 1010 Output Total 600 / 700 100 / 700 Balance 707.3 / 832.3 125 / 832.3 1010 / 1010 Urine Output (Average ml/kg/hr) 0.96 0.16 0.16 Intake: Intake, Oral Amount 120 / 240 120 / 240 Intake, IV Amount 1187.3 / 1292.3 105 / 1292.3 1010 / 1010 levETIRAcetam 500 mg In 0.9 % 105 / 105 Sodium Chloride 100 ml @ 400 mls/hr IV Q12H [facility] Rx#: [id number] levETIRAcetam in NaCl (iso-os) 200 / 200 500 mg In 100 ml @ 400 mls/hr IV Q12H [facility] Rx#:[id number] levoFLOXacin/D5W 250 mg In 50 50 / 50 ml @ 50 mls/hr IV Q48H [facility] Rx#: [id number] Potassium Chloride 20 meq In 937.3 / 937.3 1010 / 1010 Lactated Ringers 1,000 ml @ 42 mls/hr IVCONT .Q24H [facility] Rx#: [id number] Output: Output, Urine Amount 600 / 700 100 / 700 Other: NPO Yes Yes Number of Incontinent Bowel 1 Movements Urine bass Urine Color Yellow Stool Incontinent Incontinent Stool Color Yellow Green Stool Consistency Pasty Weight 52.1 kg Weight 52.1 kg - Constitutional Present: mild distress - Routine HEENT Exam Head: Present: normal inspection ENT: Present: mucous membranes moist - Routine Neck Exam Present: supple - Routine Skin Exam Present: intact - Routine Neurological Exam Present: alert, oriented X3 - Detailed Neurological Exam: Coma Scale Verbal Response: Oriented (5) Motor Response: Obeys commands (6) - Routine Psychiatric Exam Present: anxious Hem/Onc Consult Result - Labs CBC & Chem 7: 06/13/20 05:55 06/13/20 05:55 Labs: Short CBC 06/06/20 Range/Units 06:01 WBC 4.7 L (4.8-10.8) X10*3/uL Hgb 7.3 L (12.0-16.0) g/dl Hct 24.0 L (37-47) % Plt Count 219 (160-400) X10*3/uL BMP 06/06/20 06:01 Sodium 144 Potassium 5.2 H D Chloride 114 H Carbon Dioxide 12 L BUN 41 H Creatinine 4.55 H* Calcium 7.5 L Assessment and Plan (1) Anemia Status: Acute (2) Anemia Status: Acute This is an unfortunate 59-year-old lady, with history of COVID-19 infection, Sanya Kemal syndrome, Acute on CKD and now Klebsiella bacteremia. Anemia is most likely multifactorial: 1. Iron deficiency anemia: 2. Anemia of acute illness/ related to CKD stage IV. 3. Hemolytic anemia: Is a possibility given her septic picture and medications. 4. Underlying marrow infiltration is also possible: related to:MDS,vs M.M. 5. TTP/HUS: She does have some of the features of the PENTAD, (neuro symptoms, fever, hemolytic anemia, few shistocytes were noted on her smear however she does not have thrombocytopenia. her kidney function is improving. PLAN: Will proceed with further evaluation. Check: Iron Studies. B12, folate levels. Hemolytic profile: retic: 3.4. Coomb's test:positive: Direct and polyspecific. Check SIEP: pending. Check ADAMTS -13, level ( for TTP.). For now would arrange for blood transfusion, to help improve oxygen carrying capacity, given the persistently low hemoglobin. Would recommend transfusing 2 units, with the least incompatible blood unit. Consider steroids if okay with ID. Follow Thanks, CC: [facility]. DR. Marshall. Dr. Geo Richards (3) Leucopenia Status: Acute 59-year-old lady with Klebsiella bacteremia, Sanya Kemal syndrome, history of COVID-19 infection, CKD. Leukopenia: Multifactorial: 1. Related to recent infections. 2. drug reaction. 3. possible underlying marrow disorder. PLAN: Will proceed with further evaluation, to rule out the above. Thanks,
[2020-06-06 13:32] LABS: Myeloperoxidase Antibody <1.0 AI; Proteinase 3 PR3 Antibodies <1.0 AI
[2020-06-06 14:42] LABS: Prot Elec - Albumin 2.4 g/dL (3.8-4.8); Prot Elec - Alpha1 0.4 g/dL (0.2-0.3); Prot Elec - Alpha2 0.7 g/dL (0.5-0.9); Prot Elec - Beta 1 0.2 g/dL (0.4-0.6); Prot Elec - Beta 2 0.5 g/dL (0.2-0.5); Prot Elec - Gamma 1.9 g/dL (0.8-1.7); Prot Elec - Total Protein 6.1 g/dL (6.1-8.1)
--- NOTE | 2020-06-06 17:36 | HO.PM.IMPN ---
Subjective Subjective Date of Service: 06/06/20 Interval History: This patient is seen and examined with APC. Lab imaging, EKG reviewed. Physical exam and assessment and plan coordinated in APCs note, Agree with the plan in addition:Anemia, Zamzam on CKD Review of Systems Denies any chest pain or shortness of breath or abdominal pain. Physical Exam Vital Signs: Vital Signs: Vital Signs Temp Pulse Resp BP Pulse Ox 06/06/20 15:54 97.9 F 80 18 126/72 99 06/06/20 11:51 98.2 F 84 18 136/78 95 06/06/20 08:49 79 123/79 06/06/20 08:48 79 123/79 06/06/20 08:00 98.6 F 84 18 140/81 H 100 06/06/20 04:00 98.6 F 86 20 128/72 100 06/06/20 00:00 98.6 F 82 18 129/69 100 06/05/20 19:59 98.2 F 84 18 165/74 H 91 L Body Mass Index 19.1 Physical exam Cvs: rrr, [id number] , no murmur res: clear to auscultation ,no rhonchii or wheezing abd: no rebound or guarding ,nt, bs present. ext pulses present , no cyanosis neuro: axo3 , nonfocal. Objective Data Current Medications Generic Name Dose Route Start Last Admin Trade Name Freq PRN Reason Stop Dose Admin Amlodipine Besylate 10 mg 06/02/20 13:00 06/06/20 08:48 Amlodipine Besylate 10 Mg Tablet PO 10 mg DAILY [facility] Administration Protocol Bisacodyl 10 mg 06/02/20 12:53 Bisacodyl 10 Mg Supp.Rect MN DAILY PRN Constipation Calcitriol 0.5 mcg 06/06/20 14:00 06/06/20 13:59 Calcitriol Oral Soln 0.25 Mcg/0.25 Ml Solution PO 0.5 mcg DAILY [facility] Administration Calcium Acetate 1,334 mg 06/02/20 17:00 06/06/20 16:08 Calcium Acetate 667 Mg Capsule PO 1,334 mg TIDWM [facility] Administration Carvedilol 12.5 mg 06/02/20 13:00 06/06/20 08:49 Carvedilol 12.5 Mg Tablet PO 12.5 mg BID [facility] Administration Protocol Famotidine 20 mg 06/02/20 21:00 06/06/20 08:48 Famotidine 20 Mg Tablet PO 20 mg BID [facility] Administration Levofloxacin 250 mg in 50 mls @ 50 mls/hr 06/05/20 11:00 06/05/20 12:06 Levaquin IV Infused Q48H [facility] Infusion Levetiracetam 500 mg/ Sodium 105 mls @ 400 mls/hr 06/06/20 05:00 06/06/20 16:28 Chloride IV Infused Q12H [facility] Infusion Melatonin 6 mg 06/02/20 21:00 06/05/20 21:17 Melatonin 3 Mg Tablet PO 6 mg BEDTIME [facility] Administration Senna 8.6 mg 06/02/20 12:53 Sennosides 8.6 Mg Tablet PO DAILY PRN Constipation Sodium Bicarbonate 650 mg 06/02/20 15:00 06/06/20 13:09 Sodium Bicarbonate 650 Mg Tablet PO 650 mg TID [facility] Administration Sodium Chloride 3 ml 06/02/20 08:00 06/06/20 14:00 0.9 % Sodium Chloride Flush 3 Ml Syringe IVFLUSH Not Given QSHIFT [facility] Sodium Chloride 3 ml 06/06/20 16:00 06/06/20 13:59 0.9 % Sodium Chloride Flush 3 Ml Syringe IVFLUSH 3 ml QSHIFT [facility] Administration Labs CBC & Chem 7: 06/07/20 05:52 06/07/20 05:52 Assessment and Plan (1) Anemia: Status: Acute (2) Klebsiella sepsis: Problem details: Resolving Klebsiella sepsis Improving Levaquin Status: Acute (3) Renal failure: Status: Acute Assessment and Plan: As per ICU documentation: 59-year-old female type 2 diabetic apparently well until early April diagnosed with COVID-19 had some respiratory insufficiency never requiring intubation had a previous history of a subarachnoid and apparently traumatic she had a witnessed seizure they started her on Tegretol and shortly thereafter they noticed a diffuse a bolus rash and apparently by biopsy an IgA bullous dermatitis and and with severe mucosal involvement in the treated her as a burn she developed sepsis and has been on cefazolin presented here with again a witnessed status epilepticus which was focal involving her left side in addition to acute on chronic stage 5 renal failure with severe metabolic acidosis and hypernatremia and significant leukopenia as well as anemia and evidence of a coagulopathy with a PTT elevation of 74. 1. Pancytopenia: Probably multifactorial Anemia moves test positive WBC and platelets are improving Coagulation rebollar PT PTT INR seems normalized Mixing study pending Hematology evaluation As per ICU H&H seems to be improving spontaneously Will continue to monitor Iron panel, B12 and folate pending Hematology evaluation pending 2. Zamzam on CKD: Unclear etiology with aggressive hydration and bicarb replacement she now has and improvement in creatinine from 6.5 down to 5.1 azotemia is also improving her serum bicarb is gradually and slowly elevating with the ever diminishing anion gap. Renal function improving P.o. hydration encouraged Mild hyperkalemia-will give Kayexalate Patient also has low bicarb, continue p.o. bicarb 3. Seizure rebollar: Continue Keppra 4. Recent bacteremia history/sepsis: Patient was on cefazolin as per ICU initially, she switched to Levaquin as per ICU. We will add id evaluation
[2020-06-06 17:39] LABS: Immature Retic Fraction 3.4 % (3.0-15.9); Retic HGB Equivalent 29.2 pg (30.0-35.0); Reticulocyte Percent 0.3 % (0.5-1.8)
[2020-06-06 17:42] LABS: Reticulocytes Absolute 0.009 X10*6/uL (0.026-0.095)
[2020-06-06 17:47] LABS: Iron 101 mcg/dL (30-160); Lactate Dehydrogenase 283 U/L (122-220); Percent Iron Saturation 67 % (15-50); Total Iron Binding Capacity 150 mcg/dL (228-428); Unsaturated Iron Binding 49 ug/dL
[2020-06-06 18:36] LABS: Folate 7.1 ng/mL (> or = 4.0); Vitamin B12 937 pg/mL (200-900)
[2020-06-06 19:05] LABS: Ferritin 7033 ng/mL (10-250)
[2020-06-06] MEDS: Melatonin 3 MG TABLET 6 MG PO (21:00)
[2020-06-07] VITALS (13 sets, daily range): BP systolic 129–155; BP diastolic 65–86; PULSE 81–110; RESP 16–20; TEMP 35.8–37.2; O2SAT 99–100
[2020-06-07 01:12] LABS: Beta-Hydroxybutyrate 0.84 mmol/L
[2020-06-07] MEDS: levETIRAcetam in NaCl (iso-os) 500 MG/100 ML PIGGYBACK 380.95 MG IV ×2 (03:40→15:43)
[2020-06-07 05:47] LABS: PEU-Protein Creat Ratio Rand 4.727 (0.021-0.161); PEU-Rand. Prot/Creat Ratio 4727 mg/g creat (21-161); PEU-Random Ur. Gamma Globulin 22 %; PEU-Random Urine A1 Globulin 4 %; PEU-Random Urine A2 Globulin 19 %; PEU-Random Urine Albumin 34 %; PEU-Random Urine Beta Globulin 21 %; PEU-Random Urine Creatinine 22 mg/dL (20-275); PEU-Random Urine Protein 104 mg/dL (5-24)
[2020-06-07 06:41] LABS: Mean Corpuscular HGB Conc 30.3 g/dl (31.0-35.0); Mean Corpuscular Volume 92.7 fL (80-98); Mean Platelet Volume 13.2 fL (9.4-12.3); PLT CLUMP 1; Red Blood Count 2.46 X10*6/uL (4.20-5.50); Red Cell Distribution Width 16.4 % (11.0-16.0)
[2020-06-07 07:07] LABS: Anion Gap 22 (12-20); Blood Urea Nitrogen 43 mg/dL (9-16); Calcium 7.3 mg/dL (8.4-10.2); Carbon Dioxide 13 mmol/L (22-29); Chloride 114 mmol/L (96-108); Creatinine Clr Calc Pharmacy 11.1; Estimated Glomerular Filt Rate 10; Glucose Random 89 mg/dL (60-115); Potassium 5.1 mmol/l (3.3-5.1); Sodium 144 mmol/L (135-145)
[2020-06-07 07:17] LABS: PLT ABN DIST 1
[2020-06-07 07:19] LABS: Hemoglobin 6.9 g/dl (12.0-16.0)
[2020-06-07 07:20] LABS: Hematocrit 22.8 % (37-47)
[2020-06-07 08:02] LABS: Platelet Count 175 X10*3/uL (160-400)
[2020-06-07] MEDS: Calcium Acetate 667 MG CAPSULE 1334 MG PO ×3 (08:18→15:43)
[2020-06-07] MEDS: amLODIPine Besylate 10 MG TABLET PO (08:19)
[2020-06-07] MEDS: Famotidine 20 MG TABLET PO ×2 (08:19→21:05)
[2020-06-07] MEDS: 0.9 % Sodium Chloride Flush 3 ML SYRINGE IVFLUSH ×5 (08:20→14:30)
[2020-06-07] MEDS: carvediloL 12.5 MG TABLET PO ×2 (08:20→21:05)
[2020-06-07] MEDS: Sodium Bicarbonate 650 MG TABLET PO (08:20)
[2020-06-07 08:33] LABS: White Blood Count 4.9 X10*3/uL (4.8-10.8)
[2020-06-07] MEDS: levoFLOXacin/D5W 250 MG/50 ML PIGGYBACK 50 MG IV (11:22)
--- NOTE | 2020-06-07 11:33 | PM.PNNEP ---
Subjective Subjective Interval history: Events noted Feeling better Physical Exam Vital Signs: Vital Signs: Vital Signs Temp Pulse Resp BP Pulse Ox 06/07/20 08:20 86 155/86 H 06/07/20 08:19 86 155/85 H 06/07/20 08:00 96.4 F L 86 20 155/85 H 100 06/07/20 03:43 98.9 F 81 20 129/69 100 06/06/20 23:27 98.6 F 83 20 144/75 H 97 06/06/20 20:00 98.6 F 95 20 142/74 H 99 06/06/20 15:54 97.9 F 80 18 126/72 99 06/06/20 11:51 98.2 F 84 18 136/78 95 Body Mass Index 19.1 Const: General: ill appearing Cardio: Heart sounds: no rubs GI: Auscultation: normal bowel sounds Neuro: Motor exam (neuro): No Asterixis during motor activity present Assessment & Plan Assessment and plan (1) Renal failure: Status: Acute Assessment and Plan: Continued improvement in creatinine No absolute indication for dialysis yet Watch urine output Continue to avoid nephrotoxins Currently with 3 gm proteinuria C3/C4 - Normal ANCA,SPEP/UPEP - PENDING Needs kidney biopsy to r/o AGN /Interstitial nephritis- Biopsy based on correction of coagulopathy /Anemia (2) Metabolic acidosis: Status: Acute Assessment and Plan: Bicarb remains low Increase NaHCO3 to 1300 mg TID (3) Hypernatremia: Status: Acute (4) Hypocalcemia: Status: Acute Assessment and Plan: Ca has drifted down Agree with supplement iPTH elevated- suggestive of SHPT- Added CALCITRIOL 0.5 mg QD
--- NOTE | 2020-06-07 13:31 | MHC.CLN ---
F/U 25% PO DIET RX: 1800-RECOMMEND 1500 DM 2GM NA LOW K+ LOW PHOS DIET R/T CKD WILL ADD SRINIVASA AND GLUCERNA TO PROMOTE WOUND HEALING FOLLOWING
--- NOTE | 2020-06-07 14:07 | HO.PM.IMPN ---
Subjective Subjective Date of Service: 06/07/20 Interval History: zamzam , anemia Review of Systems Patient says she is feeling well otherwise limited able to communicate due to language barrier, has some diarrhea, has some diarrhea Physical Exam Vital Signs: Vital Signs: Vital Signs Temp Pulse Resp BP Pulse Ox 06/07/20 12:00 97.2 F 95 20 134/77 100 06/07/20 08:20 86 155/86 H 06/07/20 08:19 86 155/85 H 06/07/20 08:00 96.4 F L 86 20 155/85 H 100 06/07/20 03:43 98.9 F 81 20 129/69 100 06/06/20 23:27 98.6 F 83 20 144/75 H 97 06/06/20 20:00 98.6 F 95 20 142/74 H 99 06/06/20 15:54 97.9 F 80 18 126/72 99 Body Mass Index 19.1 Physical exam: Cvs: rrr, [id number] , no murmur res: clear to auscultation ,no rhonchii or wheezing abd: no rebound or guarding ,nt, bs present. ext pulses present , no cyanosis neuro:nonfocal. Objective Data Current Medications Generic Name Dose Route Start Last Admin Trade Name Freq PRN Reason Stop Dose Admin Amlodipine Besylate 10 mg 06/02/20 13:00 06/07/20 08:19 Amlodipine Besylate 10 Mg Tablet PO 10 mg DAILY [facility] Administration Protocol Bisacodyl 10 mg 06/02/20 12:53 Bisacodyl 10 Mg Supp.Rect MD DAILY PRN Constipation Calcitriol 0.5 mcg 06/06/20 14:00 06/07/20 08:19 Calcitriol Oral Soln 0.25 Mcg/0.25 Ml Solution PO 0.5 mcg DAILY [facility] Administration Calcium Acetate 1,334 mg 06/02/20 17:00 06/07/20 11:22 Calcium Acetate 667 Mg Capsule PO 1,334 mg TIDWM [facility] Administration Carvedilol 12.5 mg 06/02/20 13:00 06/07/20 08:20 Carvedilol 12.5 Mg Tablet PO 12.5 mg BID [facility] Administration Protocol Famotidine 20 mg 06/02/20 21:00 06/07/20 08:19 Famotidine 20 Mg Tablet PO 20 mg BID [facility] Administration Levofloxacin 250 mg in 50 mls @ 50 mls/hr 06/05/20 11:00 06/07/20 12:25 Levaquin IV Infused Q48H [facility] Infusion Levetiracetam 500 mg in 100 mls @ 380.952 mls/hr 06/07/20 05:00 06/07/20 03:58 Keppra IV Infused Q12H [facility] Infusion Melatonin 6 mg 06/02/20 21:00 06/06/20 21:00 Melatonin 3 Mg Tablet PO 6 mg BEDTIME [facility] Administration Senna 8.6 mg 06/02/20 12:53 Sennosides 8.6 Mg Tablet PO DAILY PRN Constipation Sodium Bicarbonate 650 mg 06/02/20 15:00 06/07/20 08:20 Sodium Bicarbonate 650 Mg Tablet PO 650 mg TID [facility] Administration Sodium Chloride 3 ml 06/02/20 08:00 06/07/20 08:27 0.9 % Sodium Chloride Flush 3 Ml Syringe IVFLUSH 3 ml QSHIFT [facility] Administration Sodium Chloride 3 ml 06/06/20 16:00 06/07/20 08:29 0.9 % Sodium Chloride Flush 3 Ml Syringe IVFLUSH 3 ml QSHIFT [facility] Administration Labs CBC & Chem 7: 06/08/20 06:50 06/07/20 05:52 Assessment and Plan (1) Acute bullous dermatitis: Status: Acute (2) Renal failure: Status: Acute Assessment and Plan: As per ICU documentation: 59-year-old female type 2 diabetic apparently well until early April diagnosed with COVID-19 had some respiratory insufficiency never requiring intubation had a previous history of a subarachnoid and apparently traumatic she had a witnessed seizure they started her on Tegretol and shortly thereafter they noticed a diffuse a bolus rash and apparently by biopsy an IgA bullous dermatitis and and with severe mucosal involvement in the treated her as a burn she developed sepsis and has been on cefazolin presented here with again a witnessed status epilepticus which was focal involving her left side in addition to acute on chronic stage 5 renal failure with severe metabolic acidosis and hypernatremia and significant leukopenia as well as anemia and evidence of a coagulopathy with a PTT elevation of 74. 1. Pancytopenia: Probably multifactorial Anemia moves test positive WBC and platelets are improving Coagulation rebollar PT PTT INR seems normalized Mixing study pending Hematology evaluation As per ICU H&H seems to be improving spontaneously Will continue to monitor Iron panel, B12 and folate pending Discussed with Hematology-iron panel and B12 folate reviewed: Hematology recommended to transfuse PRBC slowly daily if needed Moniter h/h 2. Zamzam on CKD: Unclear etiology with aggressive hydration and bicarb replacement she now has and improvement in creatinine from 6.5 down to 5.1 azotemia is also improving her serum bicarb is gradually and slowly elevating with the ever diminishing anion gap. Renal function improving P.o. hydration encouraged Mild hyperkalemia improved with Kayexalate Patient also has low bicarb, will adjust p.o. bicarb. 3. Seizure rebollar: Continue Keppra 4. Recent bacteremia history/sepsis: Patient was on cefazolin as per ICU initially, she switched to Levaquin as per ICU. Id evaluation pending (3) COVID-19: Status: Acute (4) Anemia: Status: Acute (5) Klebsiella sepsis: Problem details: Resolving Klebsiella sepsis Improving Levaquin Status: Acute
[2020-06-07] MEDS: Sodium Bicarbonate 650 MG TABLET 1300 MG PO ×2 (14:29→21:04)
[2020-06-07 14:46] LABS: Anti Nuclear Antibody Screen NEGATIVE (NEGATIVE)
[2020-06-07 19:46] LABS: Incubated PTT-LA Mix CORRECTED; Mixing Study - PT 11.3 sec (9.0-11.5); PTT LA 64 sec (< OR = 40); PTT-LA Mix CORRECTED
[2020-06-07 20:58] LABS: Glucose, Whole Blood 85 mg/dL (60-115)
[2020-06-07] MEDS: Melatonin 3 MG TABLET 6 MG PO (21:04)
[2020-06-08] VITALS (7 sets, daily range): BP systolic 134–156; BP diastolic 56–87; PULSE 89–113; RESP 18–20; TEMP 36.4–36.8; O2SAT 98–100
[2020-06-08] MEDS: 0.9 % Sodium Chloride Flush 3 ML SYRINGE IVFLUSH ×3 (00:40→08:18)
[2020-06-08 02:06] LABS: CDIFF Ag Negative (Negative); CDIFF Internal ctrl Dots and bkg OK (V); CDiff Toxin Negative (Negative)
[2020-06-08] MEDS: levETIRAcetam in NaCl (iso-os) 500 MG/100 ML PIGGYBACK 380.95 MG IV ×2 (05:06→16:45)
[2020-06-08 07:06] LABS: Red Cell Distribution Width 16.4 % (11.0-16.0)
[2020-06-08 07:08] LABS: Hematocrit 26.9 % (37-47); Hemoglobin 8.4 g/dl (12.0-16.0); Mean Corpuscular HGB Conc 31.2 g/dl (31.0-35.0); Mean Corpuscular Hemoglobin 27.5 pg (27.0-33.0); Mean Corpuscular Volume 88.2 fL (80-98); Mean Platelet Volume 12.6 fL (9.4-12.3); PLT CLUMP 1; Red Blood Count 3.05 X10*6/uL (4.20-5.50)
[2020-06-08 07:10] LABS: PLT ABN DIST 1
[2020-06-08 07:43] LABS: Platelet Count 165 X10*3/uL (160-400); White Blood Count 6.8 X10*3/uL (4.8-10.8)
[2020-06-08 07:44] LABS: Glucose, Whole Blood 86 mg/dL (60-115)
[2020-06-08] MEDS: Calcium Acetate 667 MG CAPSULE 1334 MG PO ×3 (08:17→16:45)
[2020-06-08] MEDS: amLODIPine Besylate 10 MG TABLET PO (08:17)
[2020-06-08] MEDS: Famotidine 20 MG TABLET PO ×2 (08:17→21:07)
[2020-06-08] MEDS: Sodium Bicarbonate 650 MG TABLET 1300 MG PO ×3 (08:18→21:06)
[2020-06-08] MEDS: carvediloL 12.5 MG TABLET PO ×2 (08:18→21:07)
[2020-06-08 11:02] LABS: Glucose, Whole Blood 106 mg/dL (60-115)
--- NOTE | 2020-06-08 16:37 | PM.PNNEP ---
Subjective Subjective Interval history: Events noted Doing Ok Physical Exam Vital Signs: Vital Signs: Vital Signs Temp Pulse Resp BP Pulse Ox 06/08/20 15:23 98.3 F 98 20 140/73 H 100 06/08/20 11:14 97.5 F 98 18 144/83 H 100 06/08/20 08:00 97.8 F 108 H 18 134/56 L 100 06/08/20 03:25 97.8 F 89 18 156/77 H 100 06/07/20 23:43 97.8 F 90 18 144/82 H 99 06/07/20 21:05 90 138/78 06/07/20 20:59 98.1 F 90 18 138/78 06/07/20 20:57 98.1 F 90 18 138/78 06/07/20 19:54 97.7 F 88 16 140/83 H 99 06/07/20 18:35 98.2 F 94 145/71 H 06/07/20 18:14 97.7 F 110 H 18 141/65 H Body Mass Index 19.1 Const: General: ill appearing Cardio: Heart sounds: no rubs GI: Auscultation: normal bowel sounds Neuro: Motor exam (neuro): No Asterixis during motor activity present Assessment & Plan Assessment and plan (1) Renal failure: Status: Acute Assessment and Plan: Continued improvement in creatinine No absolute indication for dialysis yet Watch urine output Continue to avoid nephrotoxins Currently with 3 gm proteinuria C3/C4 - Normal ANCA,SPEP/UPEP - PENDING Needs kidney biopsy to r/o AGN /Interstitial nephritis- Biopsy based on correction of coagulopathy /Anemia (2) Metabolic acidosis: Status: Acute Assessment and Plan: Bicarb remains low Increase NaHCO3 to 1300 mg TID (3) Hypernatremia: Status: Acute (4) Hypocalcemia: Status: Acute Assessment and Plan: Ca has drifted down Agree with supplement iPTH elevated- suggestive of SHPT- Added CALCITRIOL 0.5 mg QD Time Spent With Patient Time: Total time spent is greater than 50% in coordination of care (as documented) at patient's floor/unit and/or counseling patient:
[2020-06-08 17:31] LABS: Anion Gap 21 (12-20); Blood Urea Nitrogen 39 mg/dL (9-16); Calcium 7.1 mg/dL (8.4-10.2); Carbon Dioxide 12 mmol/L (22-29); Chloride 110 mmol/L (96-108); Creatinine Clr Calc Pharmacy 12.6; Estimated Glomerular Filt Rate 12; Glucose Random 73 mg/dL (60-115); Potassium 4.5 mmol/l (3.3-5.1); Sodium 138 mmol/L (135-145)
[2020-06-08 20:42] LABS: Glucose, Whole Blood 65 mg/dL (60-115)
[2020-06-08] MEDS: Melatonin 3 MG TABLET 6 MG PO (21:06)
[2020-06-08 21:57] LABS: Complement Total CH50 >60 U/mL (31-60)
[2020-06-09] VITALS (7 sets, daily range): BP systolic 122–148; BP diastolic 68–86; PULSE 99–110; RESP 18–20; TEMP 36.1–37; O2SAT 97–99
[2020-06-09] MEDS: 0.9 % Sodium Chloride Flush 3 ML SYRINGE IVFLUSH ×7 (00:12→20:17)
[2020-06-09] MEDS: levETIRAcetam in NaCl (iso-os) 500 MG/100 ML PIGGYBACK 380.95 MG IV ×2 (04:00→16:17)
[2020-06-09] MEDS: Sodium Bicarbonate 650 MG TABLET 1300 MG PO ×3 (07:54→20:15)
[2020-06-09] MEDS: Famotidine 20 MG TABLET PO ×2 (07:54→20:16)
[2020-06-09] MEDS: carvediloL 12.5 MG TABLET PO ×2 (07:54→20:15)
[2020-06-09] MEDS: Calcium Acetate 667 MG CAPSULE 1334 MG PO ×3 (07:54→16:16)
[2020-06-09] MEDS: amLODIPine Besylate 10 MG TABLET PO (07:54)
[2020-06-09 08:45] LABS: Hematocrit 25.8 % (37-47)
[2020-06-09 08:46] LABS: Glucose, Whole Blood 87 mg/dL (60-115)
--- NOTE | 2020-06-09 09:54 | PM.PNNEP ---
Subjective Subjective Interval history: Events noted Doing Ok Creatinine is trending down Physical Exam Vital Signs: Vital Signs: Vital Signs Temp Pulse Resp BP Pulse Ox 06/09/20 08:00 98.4 F 100 18 133/74 97 06/09/20 04:00 97.5 F 106 H 18 135/75 99 06/08/20 23:34 97.8 F 113 H 18 156/71 H 98 06/08/20 21:07 98 146/76 H 06/08/20 18:59 97.5 F 104 H 20 148/87 H 100 06/08/20 15:23 98.3 F 98 20 140/73 H 100 06/08/20 11:14 97.5 F 98 18 144/83 H 100 Body Mass Index 19.1 Const: General: ill appearing Cardio: Heart sounds: no rubs GI: Auscultation: normal bowel sounds Neuro: Motor exam (neuro): No Asterixis during motor activity present Assessment & Plan Assessment and plan (1) Renal failure: Problem details: Has hemolytic anemia-lee ann positive No thrombocytopenia ; PTT was 74 and gradually normalizing UPCR 4.7 Status: Acute Assessment and Plan: Continued improvement in creatinine No absolute indication for dialysis yet Watch urine output Continue to avoid nephrotoxins Currently with 3 gm proteinuria C3/C4 - Normal ANCA,-pending SPEP/UPEP -NoMCGP Needs kidney biopsy to r/o AGN /Interstitial nephritis- Biopsy based on correction of coagulopathy /Anemia (2) Metabolic acidosis: Status: Acute Assessment and Plan: Bicarb remains low Increased NaHCO3 to 1300 mg TID (3) Hypernatremia: Status: Acute (4) Hypocalcemia: Status: Acute Assessment and Plan: Ca has drifted down Agree with supplement iPTH elevated- suggestive of SHPT- Added CALCITRIOL 0.5 mg QD (5) COVID-19: Status: Acute Assessment and Plan: 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
[2020-06-09 11:24] LABS: Glucose, Whole Blood 103 mg/dL (60-115)
--- NOTE | 2020-06-09 12:15 | HO.PM.IMPN ---
Subjective Subjective Date of Service: 06/09/20 Interval History: Anemia, ZAMZAM on CKD Review of Systems Patient denies any chest pain or shortness of breath or abdominal pain or fever or chills. Physical Exam Vital Signs: Vital Signs: Vital Signs Temp Pulse Resp BP Pulse Ox 06/09/20 11:12 97 F 99 18 122/68 98 06/09/20 08:00 98.4 F 100 18 133/74 97 06/09/20 04:00 97.5 F 106 H 18 135/75 99 06/08/20 23:34 97.8 F 113 H 18 156/71 H 98 06/08/20 21:07 98 146/76 H 06/08/20 18:59 97.5 F 104 H 20 148/87 H 100 06/08/20 15:23 98.3 F 98 20 140/73 H 100 Body Mass Index 19.1 Physical exam: Cvs: rrr, [id number] , no murmur res: clear to auscultation ,no rhonchii or wheezing abd: no rebound or guarding ,nt, bs present. ext pulses present , no cyanosis neuro: axo3 , nonfocal. Objective Data Current Medications Generic Name Dose Route Start Last Admin Trade Name Freq PRN Reason Stop Dose Admin Amlodipine Besylate 10 mg 06/02/20 13:00 06/09/20 07:54 Amlodipine Besylate 10 Mg Tablet PO 10 mg DAILY FILOMENA Administration Protocol Bisacodyl 10 mg 06/02/20 12:53 Bisacodyl 10 Mg Supp.Rect RI DAILY PRN Constipation Calcitriol 0.5 mcg 06/06/20 14:00 06/09/20 07:55 Calcitriol Oral Soln 0.25 Mcg/0.25 Ml Solution PO 0.5 mcg DAILY FILOMENA Administration Calcium Acetate 1,334 mg 06/02/20 17:00 06/09/20 07:54 Calcium Acetate 667 Mg Capsule PO 1,334 mg TIDWM FILOMENA Administration Carvedilol 12.5 mg 06/02/20 13:00 06/09/20 07:54 Carvedilol 12.5 Mg Tablet PO 12.5 mg BID FILOMENA Administration Protocol Famotidine 20 mg 06/02/20 21:00 06/09/20 07:54 Famotidine 20 Mg Tablet PO 20 mg BID FILOMENA Administration Levofloxacin 250 mg in 50 mls @ 50 mls/hr 06/05/20 11:00 06/07/20 12:25 Levaquin IV Infused Q48H FILOMENA Infusion Levetiracetam 500 mg in 100 mls @ 380.952 mls/hr 06/07/20 05:00 06/09/20 04:19 Keppra IV Infused Q12H FILOMENA Infusion Loperamide HCl 2 mg 06/08/20 15:41 Loperamide Hcl 2 Mg Capsule PO Q4H PRN diarrahae Melatonin 6 mg 06/02/20 21:00 06/08/20 21:06 Melatonin 3 Mg Tablet PO 6 mg BEDTIME FILOMENA Administration Senna 8.6 mg 06/02/20 12:53 Sennosides 8.6 Mg Tablet PO DAILY PRN Constipation Sodium Bicarbonate 1,300 mg 06/07/20 15:00 06/09/20 07:54 Sodium Bicarbonate 650 Mg Tablet PO 1,300 mg TID FILOMENA Administration Sodium Chloride 3 ml 06/02/20 08:00 06/09/20 07:56 0.9 % Sodium Chloride Flush 3 Ml Syringe IVFLUSH 3 ml QSHIFT FILOMENA Administration Sodium Chloride 3 ml 06/06/20 16:00 06/09/20 07:56 0.9 % Sodium Chloride Flush 3 Ml Syringe IVFLUSH 3 ml QSHIFT FILOMENA Administration Labs CBC & Chem 7: 06/09/20 08:25 06/08/20 16:47 Assessment and Plan (1) Acute bullous dermatitis: Status: Acute (2) Renal failure: Status: Acute Assessment and Plan: As per ICU documentation: 59-year-old female type 2 diabetic apparently well until early April diagnosed with COVID-19 had some respiratory insufficiency never requiring intubation had a previous history of a subarachnoid and apparently traumatic she had a witnessed seizure they started her on Tegretol and shortly thereafter they noticed a diffuse a bolus rash and apparently by biopsy an IgA bullous dermatitis and and with severe mucosal involvement in the treated her as a burn she developed sepsis and has been on cefazolin presented here with again a witnessed status epilepticus which was focal involving her left side in addition to acute on chronic stage 5 renal failure with severe metabolic acidosis and hypernatremia and significant leukopenia as well as anemia and evidence of a coagulopathy with a PTT elevation of 74. 1. Pancytopenia: Probably multifactorial Anemia moves test positive WBC and platelets are improving Coagulation rebollar PT PTT INR seems normalized Mixing study pending Hematology evaluation As per ICU H&H seems to be improving spontaneously Will continue to monitor Iron panel, B12 and folate pending Discussed with Hematology-iron panel and B12 folate reviewed: Hematology recommended to transfuse PRBC slowly daily if needed Moniter h/h 2. Zamzam on CKD: Unclear etiology with aggressive hydration and bicarb replacement she now has and improvement in creatinine from 6.5 down to 5.1 azotemia is also improving her serum bicarb is gradually and slowly elevating with the ever diminishing anion gap. Renal function improving P.o. hydration encouraged Mild hyperkalemia improved with Kayexalate Patient still has low bicarb, adjusted p.o. bicarb 1300 mg -still low bicarb is low nephrology fu. 3. Seizure rebollar: Continue Keppra 4. Recent bacteremia history/sepsis: Patient was on cefazolin as per ICU , she switched to Levaquin as per ICU. Id evaluation noted -recomended to continue levaquin (3) COVID-19: Status: Acute (4) Anemia: Status: Acute (5) Klebsiella sepsis: Problem details: Resolving Klebsiella sepsis Improving Levaquin Status: Acute
[2020-06-09] MEDS: levoFLOXacin/D5W 250 MG/50 ML PIGGYBACK 50 MG IV (12:18)
[2020-06-09 14:34] LABS: Lactate Dehydrogenase 308 U/L (122-220)
[2020-06-09 16:14] LABS: Alanine Aminotransferase < 6 U/L (0-31); Alkaline Phosphatase 102 U/L (39-117); Aspartate Amino Transferase 8 U/L (5-31); Bilirubin Direct < 0.2 mg/dL (0.0-0.5); Bilirubin Total < 0.2 mg/dL (0.0-1.0); Total Protein 6.7 g/dL (6.5-8.0)
[2020-06-09 16:21] LABS: Glucose, Whole Blood 84 mg/dL (60-115)
[2020-06-09] MEDS: Melatonin 3 MG TABLET 6 MG PO (20:16)
[2020-06-09 20:50] LABS: Glucose, Whole Blood 93 mg/dL (60-115)
[2020-06-10] VITALS (8 sets, daily range): BP systolic 114–149; BP diastolic 64–88; PULSE 70–120; RESP 17–20; TEMP 36.3–37.1; O2SAT 93–100; BMI 19.2
--- NOTE | 2020-06-10 | US_ITS ---
EXAMINATION: US RETROPERITONEAL LIMITED (RENAL ONLY) CLINICAL INFORMATION: Acute renal failure. COMPARISON: None TECHNIQUE: Ultrasound of the kidneys was performed. FINDINGS: Both kidneys are replaced with innumerable cysts with distortion of the normal architecture. Cortical thinning is seen. The right kidney measures 8.5 x 6.9 x 7.1 cm and the left kidney measures 12.4 x 5.2 x 6.6 cm. The largest cyst on the right is at the lower pole measuring 5.5 x 6.6 x 3.9 cm. No cyst on the left measures over 3 cm. There is a septated cyst at the lower pole measuring 2.8 x 1.9 x 2.4 cm. No solid masses are seen. No obvious hydronephrosis or renal calculi are seen. US/US renal BI IMPRESSION: Marked renal cystic disease, possibly autosomal dominant polycystic kidney disease.
[2020-06-10] MEDS: levETIRAcetam in NaCl (iso-os) 500 MG/100 ML PIGGYBACK 380.95 MG IV ×2 (04:16→16:01)
[2020-06-10 06:51] LABS: Hematocrit 25.7 % (37-47); Hemoglobin 8.1 g/dl (12.0-16.0)
[2020-06-10 06:52] LABS: Anion Gap 23 (12-20); Blood Urea Nitrogen 31 mg/dL (9-16); Calcium 7.1 mg/dL (8.4-10.2); Carbon Dioxide 13 mmol/L (22-29); Chloride 109 mmol/L (96-108); Creatinine Clr Calc Pharmacy 13.1; Estimated Glomerular Filt Rate 12; Glucose Random 100 mg/dL (60-115); Potassium 4.3 mmol/l (3.3-5.1); Sodium 141 mmol/L (135-145)
--- NOTE | 2020-06-10 08:42 | MHC.CM.PN ---
dc plan is to return to [facility] where pt was for str. ref. has been made. waiting for dc from hospitalist. cm to cont . to follow.
[2020-06-10] MEDS: 0.9 % Sodium Chloride Flush 3 ML SYRINGE IVFLUSH ×3 (08:44→20:29)
[2020-06-10] MEDS: Famotidine 20 MG TABLET PO ×2 (08:51→20:30)
[2020-06-10] MEDS: carvediloL 12.5 MG TABLET PO ×2 (08:51→20:29)
[2020-06-10] MEDS: Sodium Bicarbonate 650 MG TABLET 1300 MG PO ×3 (08:51→20:29)
[2020-06-10] MEDS: amLODIPine Besylate 10 MG TABLET PO (08:51)
[2020-06-10] MEDS: Calcium Acetate 667 MG CAPSULE 1334 MG PO ×2 (08:51→11:45)
[2020-06-10 09:22] LABS: Glucose, Whole Blood 100 mg/dL (60-115)
[2020-06-10 11:23] LABS: INTERNATIONAL NORM RATIO 1.1 (0.9-1.1); Prothrombin Time 13.3 SEC (10.8-13.0)
[2020-06-10 11:25] LABS: Partial Thromboplastin Time 34.3 SEC (24.1-38.0)
[2020-06-10 11:26] LABS: Glucose, Whole Blood 110 mg/dL (60-115)
--- NOTE | 2020-06-10 13:21 | HO.PM.IMPN ---
Subjective Subjective Date of Service: 06/10/20 Interval History: anemia , zamzam on ckd Review of Systems Patient denies any chest pain or shortness of breath or abdominal pain or fever or chills P.o. intake slowly improving Physical Exam Vital Signs: Vital Signs: Vital Signs Temp Pulse Resp BP Pulse Ox 06/10/20 12:00 97.9 F 70 17 130/70 96 06/10/20 08:51 116 H 149/66 H 06/10/20 08:00 98.7 F 116 H 17 149/66 H 98 06/10/20 03:44 98.6 F 117 H 18 114/64 99 06/09/20 23:37 98.6 F 101 H 20 148/86 H 98 06/09/20 20:15 100 137/76 06/09/20 19:28 97.8 F 100 18 137/76 99 06/09/20 15:21 97.7 F 110 H 20 122/79 97 Body Mass Index 19.2 Physical exam: Cvs: rrr, [id number] , no murmur res: clear to auscultation ,no rhonchii or wheezing abd: no rebound or guarding ,nt, bs present. ext pulses present , no cyanosis neuro: axo3 , nonfocal. Objective Data Current Medications Generic Name Dose Route Start Last Admin Trade Name Keonq PRN Reason Stop Dose Admin Amlodipine Besylate 10 mg 06/02/20 13:00 06/10/20 08:51 Amlodipine Besylate 10 Mg Tablet PO 10 mg DAILY FILOMENA Administration Protocol Bisacodyl 10 mg 06/02/20 12:53 Bisacodyl 10 Mg Supp.Rect CO DAILY PRN Constipation Calcitriol 0.5 mcg 06/06/20 14:00 06/10/20 08:49 Calcitriol Oral Soln 0.25 Mcg/0.25 Ml Solution PO 0.5 mcg DAILY FILOMENA Administration Calcium Acetate 1,334 mg 06/02/20 17:00 06/10/20 11:45 Calcium Acetate 667 Mg Capsule PO 1,334 mg TIDWM FILOMENA Administration Carvedilol 12.5 mg 06/02/20 13:00 06/10/20 08:51 Carvedilol 12.5 Mg Tablet PO 12.5 mg BID FILOMENA Administration Protocol Famotidine 20 mg 06/02/20 21:00 06/10/20 08:51 Famotidine 20 Mg Tablet PO 20 mg BID FILOMENA Administration Levofloxacin 250 mg in 50 mls @ 50 mls/hr 06/05/20 11:00 06/09/20 14:21 Levaquin IV Infused Q48H FILOMENA Infusion Levetiracetam 500 mg in 100 mls @ 380.952 mls/hr 06/07/20 05:00 06/10/20 04:41 Keppra IV Infused Q12H FILOMENA Infusion Loperamide HCl 2 mg 06/08/20 15:41 Loperamide Hcl 2 Mg Capsule PO Q4H PRN diarrahae Melatonin 6 mg 06/02/20 21:00 06/09/20 20:16 Melatonin 3 Mg Tablet PO 6 mg BEDTIME FILOMENA Administration Senna 8.6 mg 06/02/20 12:53 Sennosides 8.6 Mg Tablet PO DAILY PRN Constipation Sodium Bicarbonate 1,300 mg 06/07/20 15:00 06/10/20 08:51 Sodium Bicarbonate 650 Mg Tablet PO 1,300 mg TID FILOMENA Administration Sodium Chloride 3 ml 06/02/20 08:00 06/10/20 08:44 0.9 % Sodium Chloride Flush 3 Ml Syringe IVFLUSH 3 ml QSHIFT FILOMENA Administration Sodium Chloride 3 ml 06/06/20 16:00 06/10/20 08:45 0.9 % Sodium Chloride Flush 3 Ml Syringe IVFLUSH Not Given QSHIFT FILOMENA Labs CBC & Chem 7: 06/11/20 05:39 06/11/20 05:39 Assessment and Plan (1) Anemia: Status: Acute (2) Klebsiella sepsis: Problem details: Resolving Klebsiella sepsis Improving Levaquin Status: Acute (3) Renal failure: Problem details: Has hemolytic anemia-lee ann positive No thrombocytopenia ; PTT was 74 and gradually normalizing UPCR 4.7 Status: Acute Assessment and Plan: As per ICU documentation: 59-year-old female type 2 diabetic apparently well until early April diagnosed with COVID-19 had some respiratory insufficiency never requiring intubation had a previous history of a subarachnoid and apparently traumatic she had a witnessed seizure they started her on Tegretol and shortly thereafter they noticed a diffuse a bolus rash and apparently by biopsy an IgA bullous dermatitis and and with severe mucosal involvement in the treated her as a burn she developed sepsis and has been on cefazolin presented here with again a witnessed status epilepticus which was focal involving her left side in addition to acute on chronic stage 5 renal failure with severe metabolic acidosis and hypernatremia and significant leukopenia as well as anemia and evidence of a coagulopathy with a PTT elevation of 74. 1. Pancytopenia: Probably multifactorial Anemia moves test positive WBC and platelets are improving Coagulation rebollar PT PTT INR seems near normalized Mixing study pending Hematology evaluation As per ICU H&H seems to be improving spontaneously Will continue to monitor Iron panel-iron , iron , ferritin -seems high , tibc low B12 and folate seems normal Discussed with Hematology-iron panel and B12 folate reviewed: Moniter h/h around 8.1 type and cross , will need 1 prbc in am and Dvaap in am before biopsy. 2. Zamzam on CKD: Unclear etiology with aggressive hydration and bicarb replacement she now has and improvement in creatinine from 6.5 down to 5.1 azotemia is also improving her serum bicarb is gradually and slowly elevating with the ever diminishing anion gap. Renal function improving P.o. hydration encouraged Patient still has low bicarb, adjusted p.o. bicarb 1300 mg -still low bicarb is low nephrology fu-anion gap acidosis /hypercholremic : nephro recommended to add bicarb drip in addition to p.o. bicarb. Will recheck renal function in the morning. 3. Seizure rebollar: Continue Keppra 4. Recent bacteremia history/sepsis: Patient was on cefazolin as per ICU , she switched to Levaquin as per ICU. Id evaluation noted -recomended to continue levaquin Id fu (4) Acute bullous dermatitis: Status: Acute (5) COVID-19: Problem details: Patient with antibodies Prior COVID Patient doesnt have acute disease and is not contagious May do procedures on patient Status: Acute
[2020-06-10 14:27] LABS: IgA 295 mg/dL (47-310); IgG 2192 mg/dL (600-1640); IgM 80 mg/dL (50-300)
--- NOTE | 2020-06-10 14:40 | MHC.CLN ---
F/U 25% PO DIET RX: 1500 DM 2GM NA LOW K+ LOW PHOS DIET-APPROPRIATE PT RECEIVING SRINIVASA AND GLUCERNA TO PROMOTE WOUND HEALING FOLLOWING
[2020-06-10 14:51] LABS: Prot Elec - Albumin 2.8 g/dL (3.8-4.8); Prot Elec - Alpha1 0.5 g/dL (0.2-0.3); Prot Elec - Alpha2 0.8 g/dL (0.5-0.9); Prot Elec - Beta 1 0.2 g/dL (0.4-0.6); Prot Elec - Beta 2 0.5 g/dL (0.2-0.5); Prot Elec - Gamma 2.1 g/dL (0.8-1.7); Prot Elec - Total Protein 6.9 g/dL (6.1-8.1)
[2020-06-10 16:12] LABS: Glucose, Whole Blood 128 mg/dL (60-115)
--- NOTE | 2020-06-10 16:34 | P.PNNP_ITS ---
Subjective Subjective Interval history: \Seen and examined. Events noted Physical Exam Vital Signs: Vital Signs: Vital Signs Temp Pulse Resp BP Pulse Ox 06/10/20 15:25 98.5 F 106 H 20 136/69 100 06/10/20 12:00 97.9 F 70 17 130/70 96 06/10/20 08:51 116 H 149/66 H 06/10/20 08:00 98.7 F 116 H 17 149/66 H 98 06/10/20 03:44 98.6 F 117 H 18 114/64 99 06/09/20 23:37 98.6 F 101 H 20 148/86 H 98 06/09/20 20:15 100 137/76 06/09/20 19:28 97.8 F 100 18 137/76 99 Body Mass Index 19.2 Physical exam: Cvs: rrr, [id number] , no murmur res: clear to auscultation ,no rhonchii or wheezing abd: no rebound or guarding ,nt, bs present. ext pulses present , no cyanosis neuro: axo3 , nonfocal. 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 without any open sores and no cellulitis and no acrocyanosis abdomen benign no bruits no tenderness no again a megaly cardiac exam with normal S1 and normal S2 but no gallops or murmurs chest percussed equally with no clinical pleural effusion and no adventitious sounds General: cooperative, well developed, awake and ill appearing Nutritional Appearance: average body habitus Limitations: behavioral limitations and language barrier HENMT: Other: pupils were equal with eyes 1 wondering but no nystagmus and no ophthalmoplegia but no light reactivity Head: Yes normal to inspection Ears: hearing grossly normal bilaterally and external ears normal General nose exam: Normal external nose present Mouth: Normal oral and palatal mucosa present and oropharynx normal Throat: Yes posterior oropharynx normal Eyes: General: appearance normal, both eyes and all related structures Neck: Other: neck was supple with full range of motion Neck: Yes normal visual inspection Chest: Other: chest percussed equally with good bilateral breath sounds and no adventitious sounds Chest palpation & inspection: normal inspection of the chest Resp: Effort & Inspection: normal respiratory effort Auscultation: clear to auscultation bilaterally Percussion: percussion normal Cardio: Jugular venous distension: no JVD Palpation: normal PMI Rate: regular rate Rhythm: regular rhythm Heart sounds: S1 normal heart sound present, S2 normal heart sound present and no rubs GI: Inspection: Yes normal to inspection Palpation (GI): Soft to palpation, nontender and No hepatosplenomegaly present Percussion: Yes normal to percussion Auscultation: normal bowel sounds : General: Yes no CVA tenderness Back/Spine/Pelvis: Back: no CVA tenderness Skin: Other: scaling circular skin lesions improving General skin exam: scars ( scars noted diffusely on the body and extremities appearing to be healed s) Neuro: General: moves all extremities, CN's II-XI intact bilaterally and other ( left hemiparesis) Cranial nerves: Yes CN's II-XII intact bilaterally Motor exam (neuro): 5/5 motor strength present throughout and No Asterixis during motor activity present Sensory Exam: No Sensory deficit (Neuro) Extrem: Other: hemiparetic on left side General: Yes normal to inspection Psych: Appearance: grossly normal Assessment & Plan Assessment and plan (1) Anemia: Status: Acute (2) Klebsiella sepsis: Problem details: Resolving Klebsiella sepsis Improving Levaquin Status: Acute (3) Renal failure: Problem details: Has hemolytic anemia-lee ann positive No thrombocytopenia ; PTT was 74 and gradually normalizing UPCR 4.7 Status: Acute (4) Acute bullous dermatitis: Status: Acute (5) COVID-19: Problem details: Patient with antibodies Prior COVID Patient doesnt have acute disease and is not contagious May do procedures on patient Status: Acute Assessment and Plan: 1. NAZANIN: Scr grad improvement from 6.1 now 3.8 c/w mutifact ATN vs other 2. Adv CKD: unclear what her bsl renal function is...need records from [facility] and rehab facility there is mention of stage V CKD in some of the notes but no specific details ( need rec from [facility]/rehab) in the original Renal consultthere is mention made of PCKD but again I do not see anyrecords of this nor a CT or US of kidneys 3. H/O pemphigus and mention made of Bullous lesions with IgA on Bx;rxn to tegretol and Sanya Kemal... 4. Anemia with abnl coags: seems to be resolving; Heme w/u in progress 5.AGMA and NAGMA: persistent low HCO3 depsite no diarrhea and beingon PO NaHCO3 6. NRProteinuria: needs sero w/u and possible kidney Bx 7. H/O COVID infection...rare reports of COVID assoc renal injurywhich may linger despite resolution of the original COVID infection ..AIN, AGN,in AA with apol 1 gene there have been cases of f collapsing FSGS Disc: IgA bullous skin lesion would raise ques of a IgA renal injury; still remains unclear if she has adv CKD and the Scr 6.1 onadm was a new NAZANIN insult from her Sepsis presentation with Scr now approaching her bsl OR a new predominat NAZANIN injury insult REC: renal U/S to eval kidney size and UA along with sero w/u and possible kidney Bx in am; IV NaHCO3 Will follow closely with med team Time Spent With Patient Time: Total time spent is greater than 50% in coordination of care (as documented) at patient's floor/unit and/or counseling patient:
--- NOTE | 2020-06-10 16:39 | PM.IDPN ---
Subjective Subjective Date of Service: 06/10/20 Interval History: patient with no complaints Objective Data Labs CBC & Chem 7: 06/10/20 05:52 06/10/20 05:52 Labs: Laboratory Results - last 24 hr 06/05/20 06/06/20 06/09/20 11:41 07:12 20:46 Hgb Hct PT INR APTT Sodium Potassium Chloride Carbon Dioxide Anion Gap BUN Creatinine Estim Creat Clear Calc Estimated GFR POC Glucose 93 Random Glucose Calcium Total Protein (PEP) 6.9 Albumin (PEP) 2.8 L Sqkty-2-Tnyvqbiqb 0.5 H Pjdhw-0-Dhztmozmp 0.8 Kizw-4-Avlxhikz 0.2 L Ljjq-2-Vpsqpsdw 0.5 Gamma Globulins 2.1 H PEP Interpretation SEE NOTE IgG Total 2192 H IgA Total 295 IgM 80 DEBI Interpretation SEE NOTE 06/10/20 06/10/20 06/10/20 05:52 05:52 08:53 Hgb 8.1 L Hct 25.7 L PT INR APTT Sodium 141 Potassium 4.3 Chloride 109 H Carbon Dioxide 13 L Anion Gap 23 H BUN 31 H Creatinine 3.84 H Estim Creat Clear Calc 13.1 Estimated GFR 12 POC Glucose 100 Random Glucose 100 D Calcium 7.1 L Total Protein (PEP) Albumin (PEP) Kacmu-3-Wlfxewgjs Boodo-8-Nvpyedvgr Gdui-4-Ilrqszva Ebum-1-Aazhdehn Gamma Globulins PEP Interpretation IgG Total IgA Total IgM DEBI Interpretation 06/10/20 06/10/20 06/10/20 09:23 11:07 16:04 Hgb Hct PT 13.3 H INR 1.1 APTT 34.3 Sodium Potassium Chloride Carbon Dioxide Anion Gap BUN Creatinine Estim Creat Clear Calc Estimated GFR POC Glucose 110 128 H Random Glucose Calcium Total Protein (PEP) Albumin (PEP) Hfhse-4-Ffzwamplf Ohjuk-2-Cyejixwcf Xwsv-7-Eciwzkyb Kfhn-1-Mymsigkx Gamma Globulins PEP Interpretation IgG Total IgA Total IgM DEBI Interpretation Physical Exam Vital Signs: Vital Signs: Vital Signs Temp Pulse Resp BP Pulse Ox 06/10/20 15:25 98.5 F 106 H 20 136/69 100 06/10/20 12:00 97.9 F 70 17 130/70 96 06/10/20 08:51 116 H 149/66 H 06/10/20 08:00 98.7 F 116 H 17 149/66 H 98 11/02/20 03:44 98.6 F 117 H 18 114/64 99 06/09/20 23:37 98.6 F 101 H 20 148/86 H 98 06/09/20 20:15 100 137/76 06/09/20 19:28 97.8 F 100 18 137/76 99 Body Mass Index 19.2 Const: General: cooperative Eyes: General: appearance normal, both eyes and all related structures Resp: Effort & Inspection: normal respiratory effort Cardio: Jugular venous distension: no JVD Rate: regular rate Rhythm: regular rhythm GI: Inspection: Yes normal to inspection Extrem: General: Yes normal to inspection Assessment and Plan Assessment and plan (1) COVID-19: Problem details: Patient with antibodies Prior COVID Patient doesnt have acute disease and is not contagious May do procedures on patient Status: Acute Time Spent With Patient Time: Total time spent is greater than 50% in coordination of care (as documented) at patient's floor/unit and/or counseling patient: Time with patient: less than 15 minutes
[2020-06-10 17:11] LABS: Haptoglobin 244 mg/dL (43-212)
[2020-06-10] MEDS: Sodium Bicarbonate 8.4% 100 MEQ in Dextrose 5 % 900 ML 50 MEQ IVPUSH (17:55)
[2020-06-10 20:22] LABS: Glucose, Whole Blood 110 mg/dL (60-115)
[2020-06-10] MEDS: Melatonin 3 MG TABLET 6 MG PO (20:29)
[2020-06-11] VITALS (7 sets, daily range): BP systolic 116–156; BP diastolic 70–89; PULSE 70–111; RESP 18–20; TEMP 35.7–37.1; O2SAT 96–100
[2020-06-11 03:56] LABS: Creatinine, Random Urine 40 mg/dL (20-275); Magnesium, Random Urine 95 mg/g creat (22-130)
[2020-06-11] MEDS: levETIRAcetam in NaCl (iso-os) 500 MG/100 ML PIGGYBACK 380.95 MG IV ×2 (04:40→16:11)
[2020-06-11 06:28] LABS: Hematocrit 24.6 % (37-47); Mean Corpuscular HGB Conc 32.5 g/dl (31.0-35.0); Mean Corpuscular Hemoglobin 28.2 pg (27.0-33.0); Mean Corpuscular Volume 86.6 fL (80-98); Platelet Count 210 X10*3/uL (160-400); Red Blood Count 2.84 X10*6/uL (4.20-5.50); Red Cell Distribution Width 15.3 % (11.0-16.0); White Blood Count 8.3 X10*3/uL (4.8-10.8)
[2020-06-11 07:04] LABS: Anion Gap 18 (12-20); Blood Urea Nitrogen 31 mg/dL (9-16); Calcium 6.8 mg/dL (8.4-10.2); Carbon Dioxide 21 mmol/L (22-29); Chloride 105 mmol/L (96-108); Creatinine Clr Calc Pharmacy 13.3; Estimated Glomerular Filt Rate 12; Glucose Random 134 mg/dL (60-115); Potassium 3.7 mmol/l (3.3-5.1); Sodium 140 mmol/L (135-145)
[2020-06-11 07:07] LABS: INTERNATIONAL NORM RATIO 1.1 (0.9-1.1); Prothrombin Time 13.3 SEC (10.8-13.0)
[2020-06-11 07:09] LABS: Partial Thromboplastin Time 32.5 SEC (24.1-38.0)
[2020-06-11 07:47] LABS: Glucose, Whole Blood 143 mg/dL (60-115)
[2020-06-11] MEDS: Sodium Bicarbonate 650 MG TABLET 1300 MG PO ×3 (08:25→22:10)
[2020-06-11] MEDS: amLODIPine Besylate 10 MG TABLET PO (08:25)
[2020-06-11] MEDS: 0.9 % Sodium Chloride Flush 3 ML SYRINGE IVFLUSH (08:25)
[2020-06-11] MEDS: Calcium Acetate 667 MG CAPSULE 1334 MG PO ×3 (08:26→16:10)
[2020-06-11] MEDS: Famotidine 20 MG TABLET PO ×2 (08:26→22:10)
[2020-06-11] MEDS: carvediloL 12.5 MG TABLET PO ×2 (08:26→22:10)
[2020-06-11] MEDS: levoFLOXacin/D5W 250 MG/50 ML PIGGYBACK 50 MG IV (11:28)
[2020-06-11 11:53] LABS: Glucose, Whole Blood 111 mg/dL (60-115)
--- NOTE | 2020-06-11 12:09 | HO.PM.IMPN ---
Subjective Subjective Date of Service: 06/11/20 Interval History: zamzam , metabolic acidosis Review of Systems denies any chest pain or shortness of breath or abdominal pain or fever or chills or any urinary complaints Physical Exam Vital Signs: Vital Signs: Vital Signs Temp Pulse Resp BP Pulse Ox 06/11/20 11:37 97.7 F 104 H 18 116/70 98 06/11/20 07:35 96.2 F L 111 H 20 150/89 H 100 06/11/20 03:08 98.0 F 70 19 136/84 96 06/10/20 23:17 97.4 F 80 19 120/70 93 06/10/20 20:29 120 H 137/88 06/10/20 19:26 98.5 F 120 H 20 137/88 98 06/10/20 15:25 98.5 F 106 H 20 136/69 100 Body Mass Index 20.0 Physical exam: Constitutional: Patient average build indian woman, not in distress Neck supple Cvs: rrr, [id number] , no murmur res: clear to auscultation ,no rhonchii or wheezing abd: no rebound or guarding ,nt, bs present. ext pulses present , no cyanosis neuro: axo3 , nonfocal. Objective Data Current Medications Generic Name Dose Route Start Last Admin Trade Name Freq PRN Reason Stop Dose Admin Amlodipine Besylate 10 mg 06/02/20 13:00 06/11/20 08:25 Amlodipine Besylate 10 Mg Tablet PO 10 mg DAILY FILOMENA Administration Protocol Bisacodyl 10 mg 06/02/20 12:53 Bisacodyl 10 Mg Supp.Rect VT DAILY PRN Constipation Calcitriol 0.5 mcg 06/06/20 14:00 06/11/20 08:26 Calcitriol Oral Soln 0.25 Mcg/0.25 Ml Solution PO 0.5 mcg DAILY FILOMENA Administration Calcium Acetate 1,334 mg 06/02/20 17:00 06/11/20 11:29 Calcium Acetate 667 Mg Capsule PO 1,334 mg TIDWM FILOMENA Administration Carvedilol 12.5 mg 06/02/20 13:00 06/11/20 08:26 Carvedilol 12.5 Mg Tablet PO 12.5 mg BID FILOMENA Administration Protocol Famotidine 20 mg 06/02/20 21:00 06/11/20 08:26 Famotidine 20 Mg Tablet PO 20 mg BID FILOMEAN Administration Levetiracetam 500 mg in 100 mls @ 380.952 mls/hr 06/07/20 05:00 06/11/20 05:03 Keppra IV Infused Q12H FILOMENA Infusion Sodium Bicarbonate 100 meq/ 1,000 mls @ 50 mls/hr 06/10/20 17:00 06/10/20 17:55 Dextrose IVPUSH 06/11/20 12:59 50 mls/hr .Q20H ONE Administration Levofloxacin 250 mg 06/13/20 12:00 Levofloxacin 250 Mg Tablet PO Q48H FILOMENA Loperamide HCl 2 mg 06/08/20 15:41 Loperamide Hcl 2 Mg Capsule PO Q4H PRN diarrahae Melatonin 6 mg 06/02/20 21:00 06/10/20 20:29 Melatonin 3 Mg Tablet PO 6 mg BEDTIME FILOMENA Administration Senna 8.6 mg 06/02/20 12:53 Sennosides 8.6 Mg Tablet PO DAILY PRN Constipation Sodium Bicarbonate 1,300 mg 06/07/20 15:00 06/11/20 08:25 Sodium Bicarbonate 650 Mg Tablet PO 1,300 mg TID FILOMENA Administration Sodium Chloride 3 ml 06/02/20 08:00 06/11/20 08:25 0.9 % Sodium Chloride Flush 3 Ml Syringe IVFLUSH 3 ml QSHIFT FILOMENA Administration Sodium Chloride 3 ml 06/06/20 16:00 06/11/20 08:25 0.9 % Sodium Chloride Flush 3 Ml Syringe IVFLUSH Not Given QSHIFT [facility] Labs CBC & Chem 7: 06/13/20 05:55 06/13/20 05:55 Assessment and Plan (1) Klebsiella sepsis: (2) Renal failure: Status: Acute Assessment and Plan: As per ICU documentation: 59-year-old female type 2 diabetic apparently well until early April diagnosed with COVID-19 had some respiratory insufficiency never requiring intubation had a previous history of a subarachnoid and apparently traumatic she had a witnessed seizure they started her on Tegretol and shortly thereafter they noticed a diffuse a bolus rash and apparently by biopsy an IgA bullous dermatitis and and with severe mucosal involvement in the treated her as a burn she developed sepsis and has been on cefazolin presented here with again a witnessed status epilepticus which was focal involving her left side in addition to acute on chronic stage 5 renal failure with severe metabolic acidosis and hypernatremia and significant leukopenia as well as anemia and evidence of a coagulopathy with a PTT elevation of 74. 1. Pancytopenia: Probably multifactorial Anemia moves test positive WBC and platelets are improving Coagulation rebollar PT PTT INR seems near normalized,Mixing study pending, also serologies, Siep also pending Hematology evaluation As per ICU H&H seems to be improving spontaneously Will continue to monitor Iron panel-iron , iron , ferritin -seems high , tibc low B12 and folate seems normal Discussed with Hematology-iron panel and B12 folate reviewed: Moniter h/h around 8.1 type and cross , will need 1 prbc in am and Dvaap in am before biopsy. 2. Zamzam on CKD: Unclear etiology-multifactorial ? as per nephro -question of Polycystic kidney dis on renal us . with aggressive hydration and bicarb replacement she now has and improvement in creatinine from 6.5 down to 5.1 azotemia is also improving her serum bicarb is gradually and slowly elevating with the ever diminishing anion gap. Renal function improving P.o. hydration encouraged Patient still has low bicarb, adjusted p.o. bicarb 1300 mg -still low bicarb is low nephrology fu-anion gap acidosis /hypercholremic :yesterday received bicarb drip , seems improving, will stop bicarb drip mild hypocalcemia -will add calcium po , also on caltriol spoke to nephro: plan is hold biopsy and moniter electrolytes 3. Seizure rebollar: Continue Keppra 4. Recent bacteremia history/sepsis: Patient was on cefazolin as per ICU , she switched to Levaquin as per ICU. Id evaluation noted -recomended to continue levaquin patient will need Id fu upon discharge -plan for further duration of levaquin use. d/w ID:covis rebollar -Patient with antibodies Prior COVID Patient doesnt have acute disease and is not contagious. (3) Anemia: Status: Acute (4) Acute bullous dermatitis: (5) COVID-19:
--- NOTE | 2020-06-11 12:58 | PM.PNNEP ---
Subjective Subjective Interval history: Seen and examined. U/S reviewed and c/w PKD Again attempted to talk with son but unable to reach by phone Physical Exam Vital Signs: Vital Signs: Vital Signs Temp Pulse Resp BP Pulse Ox 06/11/20 11:37 97.7 F 104 H 18 116/70 98 06/11/20 07:35 96.2 F L 111 H 20 150/89 H 100 06/11/20 03:08 98.0 F 70 19 136/84 96 06/10/20 23:17 97.4 F 80 19 120/70 93 06/10/20 20:29 120 H 137/88 06/10/20 19:26 98.5 F 120 H 20 137/88 98 06/10/20 15:25 98.5 F 106 H 20 136/69 100 Body Mass Index 20.0 Physical exam: Cvs: rrr, [id number] , no murmur res: clear to auscultation ,no rhonchii or wheezing abd: no rebound or guarding ,nt, bs present. ext pulses present , no cyanosis neuro: axo3 , nonfocal. 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 without any open sores and no cellulitis and no acrocyanosis abdomen benign no bruits no tenderness no again a megaly cardiac exam with normal S1 and normal S2 but no gallops or murmurs chest percussed equally with no clinical pleural effusion and no adventitious sounds General: cooperative, well developed, awake and ill appearing Nutritional Appearance: average body habitus Limitations: behavioral limitations and language barrier HENMT: Other: pupils were equal with eyes 1 wondering but no nystagmus and no ophthalmoplegia but no light reactivity Head: Yes normal to inspection Ears: hearing grossly normal bilaterally and external ears normal General nose exam: Normal external nose present Mouth: Normal oral and palatal mucosa present and oropharynx normal Throat: Yes posterior oropharynx normal Eyes: General: appearance normal, both eyes and all related structures Neck: Other: neck was supple with full range of motion Neck: Yes normal visual inspection Chest: Other: chest percussed equally with good bilateral breath sounds and no adventitious sounds Chest palpation & inspection: normal inspection of the chest Resp: Effort & Inspection: normal respiratory effort Auscultation: clear to auscultation bilaterally Percussion: percussion normal Cardio: Jugular venous distension: no JVD Palpation: normal PMI Rate: regular rate Rhythm: regular rhythm Heart sounds: S1 normal heart sound present, S2 normal heart sound present and no rubs GI: Inspection: Yes normal to inspection Palpation (GI): Soft to palpation, nontender and No hepatosplenomegaly present Percussion: Yes normal to percussion Auscultation: normal bowel sounds : General: Yes no CVA tenderness Back/Spine/Pelvis: Back: no CVA tenderness Skin: Other: scaling circular skin lesions improving General skin exam: scars ( scars noted diffusely on the body and extremities appearing to be healed s) Neuro: General: moves all extremities, CN's II-XI intact bilaterally and other ( left hemiparesis) Cranial nerves: Yes CN's II-XII intact bilaterally Motor exam (neuro): 5/5 motor strength present throughout and No Asterixis during motor activity present Sensory Exam: No Sensory deficit (Neuro) Extrem: Other: hemiparetic on left side General: Yes normal to inspection Psych: Appearance: grossly normal Assessment & Plan Assessment and plan (1) Anemia: Status: Acute (2) Klebsiella sepsis: Problem details: Resolving Klebsiella sepsis Improving Levaquin Status: Acute (3) Renal failure: Problem details: Has hemolytic anemia-lee ann positive No thrombocytopenia ; PTT was 74 and gradually normalizing UPCR 4.7 Status: Acute (4) Acute bullous dermatitis: Status: Acute (5) COVID-19: Problem details: Patient with antibodies Prior COVID Patient doesnt have acute disease and is not contagious May do procedures on patient Status: Acute Assessment and Plan: 1. NAZANIN: Scr grad improvement from 6.1 now 3.8 c/w mutifact ATN vs other 2. Adv CKD: unclear what her bsl renal function is but may at it now given rec state she has adv CKD and U/S reveals PKD 3. H/O pemphigus and mention made of Bullous lesions with IgA on Bx;rxn to tegretol and Sanya Kemal... 4. Anemia with abnl coags: seems to be resolving; Heme w/u in progress 5.AGMA and NAGMA: imporved after gentle IV NaHCO3 6. NRProteinuria: no kidney Bx given PKD 7. H/O COVID infection...doiubt COVID is directly impacted renal function rare reports of COVID assoc renal injury which may linger despite resolution of the original COVID infection ..AIN, AGN,in [place] with apol 1 gene there have been cases of f collapsing FSGS Disc: putting the puzzle to=gether seems that she had NAZANIN related to her seevere infection w assoc ATN ontop of adv CKD from underlying PKD..ideally would like records from [facility] on her prior bsl SCr REC: start procrit ( if ok with Heme); check vit D and PTH ( I will order); no kidney Bx; protect non-dominant arm for future AVF; get rec from [facility]; avoif NToxind;; cont PO NaHCO3 ( goal HCO3 > 24) Will follow closely with med team Time Spent With Patient Time: Total time spent is greater than 50% in coordination of care (as documented) at patient's floor/unit and/or counseling patient:
[2020-06-11 13:14] LABS: Appearance Urine HAZY; Color Urine YELLOW; Glucose Urine UA 100 MG/DL (NEG); Leukocyte Esterase Urine 3+ (NEG); Nitrite Urine NEG (NEG); PH 7.5 (5.0-8.0); Urine Blood 1+ (NEG); Urine Ketones 5 MG/DL (NEG); Urine Protein 2+ MG/DL (NEG-TRACE)
[2020-06-11 13:32] LABS: Bacteria Urine 3+ /LPF; Squamous Epithelial Cell Urine 1+ /LPF; WBC Urine 50-75 /HPF (0-4)
[2020-06-11 13:34] LABS: Creatinine Urine 53.26 mg/dL
[2020-06-11 13:36] LABS: Total Protein Urine Random 151 mg/dL (<12)
[2020-06-11 13:37] LABS: PEU-Protein Creat Ratio Rand 4.605 (0.021-0.161); PEU-Rand. Prot/Creat Ratio 4605 mg/g creat (21-161); PEU-Random Ur. Gamma Globulin 23 %; PEU-Random Urine A1 Globulin 6 %; PEU-Random Urine A2 Globulin 16 %; PEU-Random Urine Albumin 38 %; PEU-Random Urine Beta Globulin 17 %; PEU-Random Urine Creatinine 43 mg/dL (20-275); PEU-Random Urine Protein 198 mg/dL (5-24)
[2020-06-11 14:01] LABS: Myeloperoxidase Antibody <1.0 AI; Proteinase 3 PR3 Antibodies <1.0 AI
--- NOTE | 2020-06-11 14:40 | PM.EVENT ---
Event Note Event Note: 14 days total Levaquin
[2020-06-11 16:23] LABS: Glucose, Whole Blood 108 mg/dL (60-115)
[2020-06-11 21:33] LABS: Glucose, Whole Blood 105 mg/dL (60-115)
[2020-06-11] MEDS: Melatonin 3 MG TABLET 6 MG PO (22:10)
[2020-06-12] VITALS (7 sets, daily range): BP systolic 122–135; BP diastolic 58–83; PULSE 91–110; RESP 18–20; TEMP 36.3–37.1; O2SAT 94–100
[2020-06-12] MEDS: 0.9 % Sodium Chloride Flush 3 ML SYRINGE IVFLUSH ×3 (00:29→16:11)
[2020-06-12] MEDS: levETIRAcetam in NaCl (iso-os) 500 MG/100 ML PIGGYBACK 380.95 MG IV ×2 (04:30→16:10)
[2020-06-12 06:37] LABS: INTERNATIONAL NORM RATIO 1.2 (0.9-1.1); Prothrombin Time 13.8 SEC (10.8-13.0)
[2020-06-12 06:40] LABS: Partial Thromboplastin Time 32.5 SEC (24.1-38.0)
[2020-06-12 06:58] LABS: Hemoglobin 7.7 g/dl (12.0-16.0); Red Cell Distribution Width 15.2 % (11.0-16.0)
[2020-06-12 07:00] LABS: Hematocrit 23.7 % (37-47); Mean Corpuscular HGB Conc 32.5 g/dl (31.0-35.0); Mean Corpuscular Hemoglobin 29.4 pg (27.0-33.0); Mean Corpuscular Volume 90.5 fL (80-98); Platelet Count 204 X10*3/uL (160-400); Red Blood Count 2.62 X10*6/uL (4.20-5.50); White Blood Count 6.5 X10*3/uL (4.8-10.8)
[2020-06-12 07:27] LABS: Anion Gap 18 (12-20); Blood Urea Nitrogen 27 mg/dL (9-16); Calcium 7.7 mg/dL (8.4-10.2); Carbon Dioxide 25 mmol/L (22-29); Chloride 102 mmol/L (96-108); Creatinine Clr Calc Pharmacy 13.2; Estimated Glomerular Filt Rate 11; Glucose Random 115 mg/dL (60-115); Potassium 3.5 mmol/l (3.3-5.1); Sodium 141 mmol/L (135-145)
[2020-06-12 07:39] LABS: Glucose, Whole Blood 123 mg/dL (60-115)
[2020-06-12] MEDS: amLODIPine Besylate 10 MG TABLET PO (08:50)
[2020-06-12] MEDS: Sodium Bicarbonate 650 MG TABLET 1300 MG PO ×3 (08:50→20:08)
[2020-06-12] MEDS: Calcium Acetate 667 MG CAPSULE 1334 MG PO ×3 (08:50→16:11)
[2020-06-12] MEDS: carvediloL 12.5 MG TABLET PO ×2 (08:51→20:07)
--- NOTE | 2020-06-12 11:13 | MHC.CM.PN ---
The goal for dc is for Patient to return to [facility] at [facility], prior to returning home to live with her Son.Patient is receiving IV Keppra and per ROUNDS, not yet ready for dc. CM will continue to follow for dc planning and to monitor for the possibility of the need to adjust the dc plan.
[2020-06-12 11:36] LABS: Glucose, Whole Blood 108 mg/dL (60-115)
--- NOTE | 2020-06-12 11:49 | P.PNNP_ITS ---
Subjective Subjective Interval history: Seen and examined. U/S reviewed and c/w PKD No specific c/o's rec from outp rehab noted .. CKD 5 Physical Exam Vital Signs: Vital Signs: Vital Signs Temp Pulse Resp BP Pulse Ox 06/12/20 11:24 97.5 F 95 18 122/58 L 98 06/12/20 07:31 98.0 F 103 H 18 135/83 94 06/12/20 03:26 98.7 F 102 H 20 132/78 100 06/11/20 23:34 98.7 F 98 20 121/73 100 06/11/20 22:10 90 156/82 H 06/11/20 19:07 98.1 F 98 18 153/86 H 100 06/11/20 15:05 97.9 F 105 H 19 152/82 H 98 Body Mass Index 20.0 Physical exam: Cvs: rrr, [id number] , no murmur res: clear to auscultation ,no rhonchii or wheezing abd: no rebound or guarding ,nt, bs present. ext pulses present , no cyanosis neuro: axo3 , nonfocal. 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 without any open sores and no cellulitis and no acrocyanosis abdomen benign no bruits no tenderness no again a megaly cardiac exam with normal S1 and normal S2 but no gallops or murmurs chest percussed equally with no clinical pleural effusion and no adventitious sounds General: cooperative, well developed, awake and ill appearing Nutritional Appearance: average body habitus Limitations: behavioral limitations and language barrier HENMT: Other: pupils were equal with eyes 1 wondering but no nystagmus and no ophthalmoplegia but no light reactivity Head: Yes normal to inspection Ears: hearing grossly normal bilaterally and external ears normal General nose exam: Normal external nose present Mouth: Normal oral and palatal mucosa present and oropharynx normal Throat: Yes posterior oropharynx normal Eyes: General: appearance normal, both eyes and all related structures Neck: Other: neck was supple with full range of motion Neck: Yes normal visu al inspection Chest: Other: chest percussed equally with good bilateral breath sounds and no adventitious sounds Chest palpation & inspection: normal inspection of the chest Resp: Effort & Inspection: normal respiratory effort Auscultation: clear to auscultation bilaterally Percussion: percussion normal Cardio: Jugular venous distension: no JVD Palpation: normal PMI Rate: regular rate Rhythm: regular rhythm Heart sounds: S1 normal heart sound present, S2 normal heart sound present and no rubs GI: Inspection: Yes normal to inspection Palpation (GI): Soft to palpation, nontender and No hepatosplenomegaly present Percussion: Yes normal to percussion Auscultation: normal bowel sounds : General: Yes no CVA tenderness Back/Spine/Pelvis: Back: no CVA tenderness Skin: Other: scaling circular skin lesions improving General skin exam: scars ( scars noted diffusely on the body and extremities appearing to be healed s) Neuro: General: moves all extremities, CN's II-XI intact bilaterally and other ( left hemiparesis) Cranial nerves: Yes CN's II-XII intact bilaterally Motor exam (neuro): 5/5 motor strength present throughout and No Asterixis during motor activity present Sensory Exam: No Sensory deficit (Neuro) Extrem: Other: hemiparetic on left side General: Yes normal to inspection Psych: Appearance: grossly normal Assessment & Plan Assessment and plan (1) Anemia: Status: Acute (2) Klebsiella sepsis: Problem details: Resolving Klebsiella sepsis Improving Levaquin Status: Acute (3) Renal failure: Problem details: Has hemolytic anemia-lee ann positive No thrombocytopenia ; PTT was 74 and gradually normalizing UPCR 4.7 Status: Acute (4) Acute bullous dermatitis: Status: Acute (5) COVID-19: Problem details: Patient with antibodies Prior COVID Patient doesnt have acute disease and is not contagious May do procedures on patient Status: Acute Assessment and Plan: 1. NAZANIN: Scr grad improvement from 6.1 now 3.8-4.0 ( her bsl) c/w mutifact ATN vs other 2. Adv CKD: she has adv CKD and U/S reveals PKD 3. H/O pemphigus and mention made of Bullous lesions with IgA on Bx;rxn to tegretol and Sanya Kemal... 4. Anemia with abnl coags: seems to be resolving; Heme w/u in progress 5.AGMA and NAGMA: imporved after gentle IV NaHCO3 6. NRProteinuria: no kidney Bx given PKD 7. H/O COVID infection...doiubt COVID is directly impacted renal function rare reports of COVID assoc renal injury which may linger despite resolution of the original COVID infection ..AIN, AGN,in [place] with apol 1 gene there have been cases of f collapsing FSGS Disc: putting the puzzle together seems that she had NAZANIN related to her severe infection w assoc ATN ontop of adv CKD from underlying PKD. REC: start procrit ( if ok with Heme); check vit D and PTH ( I will order); no kidney Bx; protect non-dominant arm for future AVF; get rec from [facility] [place]; avoif NToxind;; cont PO NaHCO3 ( goal HCO3 > 24); ok to d/c and f/u as outpt for prep for [employer] Will follow closely with med team Time Spent With Patient Time: Total time spent is greater than 50% in coordination of care (as documented) at patient's floor/unit and/or counseling patient:
--- NOTE | 2020-06-12 12:34 | MHC.CLN ---
F/U PO INTAKE 25% DIET RX: 1800-APPROPRIATE WILL RE-START GLUCERNA AND SRINIVASA SUPPLEMENTS TO PROMOTE WOUND HEALING MONITOR PO AND WEIGHTS CLOSELY FOLLOWING
--- NOTE | 2020-06-12 14:21 | P.PNIM_ITS ---
Subjective Subjective Date of Service: 06/12/20 Interval History: seen and examined this AM no new events reported Physical Exam Vital Signs: Vital Signs: Vital Signs Temp Pulse Resp BP Pulse Ox 06/12/20 11:24 97.5 F 95 18 122/58 L 98 06/12/20 07:31 98.0 F 103 H 18 135/83 94 06/12/20 03:26 98.7 F 102 H 20 132/78 100 06/11/20 23:34 98.7 F 98 20 121/73 100 06/11/20 22:10 90 156/82 H 06/11/20 19:07 98.1 F 98 18 153/86 H 100 06/11/20 15:05 97.9 F 105 H 19 152/82 H 98 Body Mass Index 20.0 General - no acute distress, appears comfortable Cardiovascular - s1s2 Lungs - non-labored breathing Abdomen - soft, nontender, no rebound regarding Extremities - no edema bilaterally Neuro - awake and alert, no focal deficits skin - +rash Objective Data Current Medications Generic Name Dose Route Start Last Admin Trade Name Freq PRN Reason Stop Dose Admin Amlodipine Besylate 10 mg 06/02/20 13:00 06/12/20 08:50 Amlodipine Besylate 10 Mg Tablet PO 10 mg DAILY FILOMENA Administration Protocol Bisacodyl 10 mg 06/02/20 12:53 Bisacodyl 10 Mg Supp.Rect OH DAILY PRN Constipation Calcitriol 0.5 mcg 06/06/20 14:00 06/12/20 08:50 Calcitriol Oral Soln 0.25 Mcg/0.25 Ml Solution PO 0.5 mcg DAILY FILOMENA Administration Calcium Acetate 1,334 mg 06/02/20 17:00 06/12/20 12:58 Calcium Acetate 667 Mg Capsule PO 1,334 mg TIDWM FILOMENA Administration Calcium Carbonate 500 mg 06/11/20 21:00 06/12/20 08:51 Calcium Carbonate 500 Mg Tablet PO 500 mg BID FILOMENA Administration Carvedilol 12.5 mg 06/02/20 13:00 06/12/20 08:51 Carvedilol 12.5 Mg Tablet PO 12.5 mg BID FILOMENA Administration Protocol Famotidine 20 mg 06/02/20 21:00 06/12/20 08:53 Famotidine 20 Mg Tablet PO Not Given BID FILOMENA Levetiracetam 500 mg in 100 mls @ 380.952 mls/hr 06/07/20 05:00 06/12/20 04:48 Keppra IV Infused Q12H FILOMENA Infusion Levofloxacin 250 mg 06/13/20 12:00 Levofloxacin 250 Mg Tablet PO Q48H FILOMENA Loperamide HCl 2 mg 06/08/20 15:41 Loperamide Hcl 2 Mg Capsule PO Q4H PRN diarrahae Melatonin 6 mg 06/02/20 21:00 06/11/20 22:10 Melatonin 3 Mg Tablet PO 6 mg BEDTIME FILOMENA Administration Senna 8.6 mg 06/02/20 12:53 Sennosides 8.6 Mg Tablet PO DAILY PRN Constipation Sodium Bicarbonate 1,300 mg 06/07/20 15:00 06/12/20 08:50 Sodium Bicarbonate 650 Mg Tablet PO 1,300 mg TID FILOMENA Administration Sodium Chloride 3 ml 06/02/20 08:00 06/12/20 08:52 0.9 % Sodium Chloride Flush 3 Ml Syringe IVFLUSH 3 ml QSHIFT FILOMENA Administration Sodium Chloride 3 ml 06/06/20 16:00 06/12/20 08:51 0.9 % Sodium Chloride Flush 3 Ml Syringe IVFLUSH Not Given QSHIFT FILOMENA Labs CBC & Chem 7: 06/12/20 05:45 06/12/20 05:45 Assessment and Plan (1) Anemia: Status: Acute Assessment and Plan: This is a 59 yo F with PMH of diabetes who hospitalized ? [place] [facility] [place] COVID 19 + ? seizures. 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 She now presented to the hospital with acute on chronic kidney disease and was initially admitted to the ICU where she was treated medically for her NAZANIN on CKD and hyperkalemia. Her ICU course was further complicated by ? focal seizures for which she was starte on IV keppra which she has tolerated. 1. NAZANIN on CKD stage 4, hyperkalemia SCr relatively stable nephrology on board -- no need for biopsy will need outpatient f/u 2. Status epilepticu (focal seizures) seen in the ICU -- initiated on IV keppra, will swtich to PO keppra outpatient f/u with her Neurologist at [facility] 3. Anemia ? hemolytic h/h stable hematology f/u 4. Recent bactreremia reportedly klebsiella -- was on kefzol has been switched to levaquin -- to finish up with 14 total days -- last day 06/19/2020. 5. COVID 19 had it in apr 2019 nasal swab positive upon admission, also IgG positive at the same time. doubt reinfection Full Code DVT pptx, compression device if she can tolerate. not on pharmacologic due to anemia requiring trasnfusion.
[2020-06-12 16:47] LABS: Glucose, Whole Blood 100 mg/dL (60-115)
[2020-06-12] MEDS: Melatonin 3 MG TABLET 6 MG PO (20:07)
[2020-06-12] MEDS: diphenhydrAMINE HCL 25 MG TABLET PO (20:07)
[2020-06-12] MEDS: Famotidine 20 MG TABLET PO (20:08)
[2020-06-12 21:31] LABS: Glucose, Whole Blood 136 mg/dL (60-115)
[2020-06-13] MEDS: 0.9 % Sodium Chloride Flush 3 ML SYRINGE IVFLUSH ×4 (00:03→15:53)
[2020-06-13 03:25] VITALS: BP 126/74; PULSE 97; RESP 19; TEMP 36.6; O2SAT 99
[2020-06-13] MEDS: levETIRAcetam 500 MG TABLET PO ×2 (05:20→08:04)
[2020-06-13 06:20] LABS: Basophils Percent Auto 0.5 % (0-2); Eosinophils Absolute Auto 0.8 X10*3/uL (0.0-0.4); Eosinophils Percent Auto 11.7 % (0-4); Hematocrit 24.6 % (37-47); Hemoglobin 7.9 g/dl (12.0-16.0); Imm Gran Abs Auto 0.12 X10*3/uL (0.00-0.03); Imm Gran Pct Auto 1.8 % (0.0-0.4); Lymphocytes Absolute Auto 1.8 X10*3/uL (1.2-4.9); MANUAL DIFF FLAG SCAN; Mean Corpuscular HGB Conc 32.1 g/dl (31.0-35.0); Mean Corpuscular Volume 90.4 fL (80-98); Mean Platelet Volume 12.9 fL (9.4-12.3); Monocytes Absolute Auto 0.8 X10*3/uL (0.1-1.2); Monocytes Percent Auto 12.6 % (2-11); Neutrophils Percent Auto 45.4 % (45-73); Platelet Count 195 X10*3/uL (160-400); Red Blood Count 2.72 X10*6/uL (4.20-5.50); Red Cell Distribution Width 15.1 % (11.0-16.0); SCAN SMEAR FLAG 1; White Blood Count 6.5 X10*3/uL (4.8-10.8)
[2020-06-13 06:50] LABS: Anion Gap 16 (12-20); Blood Urea Nitrogen 24 mg/dL (9-16); Calcium 7.5 mg/dL (8.4-10.2); Carbon Dioxide 27 mmol/L (22-29); Chloride 100 mmol/L (96-108); Creatinine Clr Calc Pharmacy 12.2; Estimated Glomerular Filt Rate 10; Glucose Random 113 mg/dL (60-115); Potassium 3.8 mmol/l (3.3-5.1); Sodium 139 mmol/L (135-145)
[2020-06-13 07:00] LABS: SLIDE REVIEW VERIFIED
[2020-06-13 07:27] LABS: Glucose, Whole Blood 107 mg/dL (60-115)
[2020-06-13 07:49] VITALS: BP 130/88; PULSE 103; RESP 18; TEMP 36.4; O2SAT 96
[2020-06-13] MEDS: Calcium Acetate 667 MG CAPSULE 1334 MG PO ×3 (08:03→16:35)
[2020-06-13 08:04] VITALS: BP 130/88; PULSE 103
[2020-06-13] MEDS: Sodium Bicarbonate 650 MG TABLET 1300 MG PO ×3 (08:04→16:35)
[2020-06-13] MEDS: Famotidine 20 MG TABLET PO (08:04)
[2020-06-13] MEDS: carvediloL 12.5 MG TABLET PO (08:04)
[2020-06-13] MEDS: amLODIPine Besylate 10 MG TABLET PO (08:04)
[2020-06-13 11:07] LABS: Glucose, Whole Blood 108 mg/dL (60-115)
--- NOTE | 2020-06-13 11:31 | HO.PM.IMPN ---
Subjective Subjective Interval History: seen and examined this AM no new events Physical Exam Vital Signs: Vital Signs: Vital Signs Temp Pulse Resp BP Pulse Ox 06/13/20 08:04 103 H 130/88 06/13/20 07:49 97.6 F 103 H 18 130/88 96 06/13/20 03:25 97.8 F 97 19 126/74 99 06/12/20 23:24 97.5 F 91 19 126/83 99 06/12/20 20:07 103 H 125/81 06/12/20 19:56 97.3 F 103 H 18 125/81 96 06/12/20 16:00 98.0 F 110 H 18 127/69 99 Body Mass Index 20.0 General - no acute distress, appears comfortable Cardiovascular - s1s2 Lungs - non-labored breathing Abdomen - soft, nontender, no rebound regarding Extremities - no edema bilaterally Neuro - awake and alert, no focal deficits skin - +rash Objective Data Current Medications Generic Name Dose Route Start Last Admin Trade Name Freq PRN Reason Stop Dose Admin Amlodipine Besylate 10 mg 06/02/20 13:00 06/13/20 08:04 Amlodipine Besylate 10 Mg Tablet PO 10 mg DAILY FILOMENA Administration Protocol Bisacodyl 10 mg 06/02/20 12:53 Bisacodyl 10 Mg Supp.Rect SD DAILY PRN Constipation Calcitriol 0.5 mcg 06/06/20 14:00 06/13/20 08:06 Calcitriol Oral Soln 0.25 Mcg/0.25 Ml Solution PO 0.5 mcg DAILY FILOMENA Administration Calcium Acetate 1,334 mg 06/02/20 17:00 06/13/20 08:03 Calcium Acetate 667 Mg Capsule PO 1,334 mg TIDWM FILOMENA Administration Calcium Carbonate 500 mg 06/11/20 21:00 06/13/20 08:04 Calcium Carbonate 500 Mg Tablet PO 500 mg BID FILOMENA Administration Carvedilol 12.5 mg 06/02/20 13:00 06/13/20 08:04 Carvedilol 12.5 Mg Tablet PO 12.5 mg BID FILOMENA Administration Protocol Diphenhydramine HCl 25 mg 06/12/20 16:47 06/12/20 20:07 Diphenhydramine Hcl 25 Mg Tablet PO 25 mg Q6H PRN Administration Itching Famotidine 20 mg 06/02/20 21:00 06/13/20 08:04 Famotidine 20 Mg Tablet PO 20 mg BID FILOMENA Administration Levetiracetam 500 mg 06/13/20 06:00 06/13/20 08:04 Levetiracetam 500 Mg Tablet PO 500 mg BID FILOMENA Administration Levofloxacin 250 mg 06/13/20 12:00 Levofloxacin 250 Mg Tablet PO Q48H FILOMENA Loperamide HCl 2 mg 06/08/20 15:41 Loperamide Hcl 2 Mg Capsule PO Q4H PRN diarrahae Melatonin 6 mg 06/02/20 21:00 06/12/20 20:07 Melatonin 3 Mg Tablet PO 6 mg BEDTIME FILOMENA Administration Senna 8.6 mg 06/02/20 12:53 Sennosides 8.6 Mg Tablet PO DAILY PRN Constipation Sodium Bicarbonate 1,300 mg 06/07/20 15:00 06/13/20 08:04 Sodium Bicarbonate 650 Mg Tablet PO 1,300 mg TID FILOMENA Administration Sodium Chloride 3 ml 06/02/20 08:00 06/13/20 08:05 0.9 % Sodium Chloride Flush 3 Ml Syringe IVFLUSH 3 ml QSHIFT FILOMENA Administration Sodium Chloride 3 ml 06/06/20 16:00 06/13/20 08:06 0.9 % Sodium Chloride Flush 3 Ml Syringe IVFLUSH Not Given QSHIFT FILOMENA Labs CBC & Chem 7: 06/13/20 05:55 06/13/20 05:55 Assessment and Plan (1) Anemia: Status: Acute Assessment and Plan: This is a 59 yo F with PMH of diabetes who hospitalized ? [place] [facility] [place] + ? seizures. 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 She now presented to the hospital with acute on chronic kidney disease and was initially admitted to the ICU where she was treated medically for her NAZANIN on CKD and hyperkalemia. Her ICU course was further complicated by ? focal seizures for which she was starte on IV keppra which she has tolerated. 1. NAZANIN on CKD stage 4, hyperkalemia SCr slowly climbing up d/w nephrology -- will f/u as OP next week, cleared for d/c from renal perspective 2. Status epilepticu (focal seizures) seen in the ICU -- initiated on IV keppra tolerating PO keppra -- needs outpatient f/u with her own neurologist at [facility] 3. Anemia, multifactorial AIHA start prednisone 40mg daily, outpatient labs next week to be sent to hematology - Dr. Grier 4. Recent bacteremia reportedly klebsiella -- was on kefzol has been switched to levaquin -- to finish up with 14 total days -- last day 06/19/2020. 5. COVID 19 had it in apr 2019 nasal swab positive upon admission, also IgG positive at the same time. doubt reinfection - see ID note from 06/10/2020 Full Code DVT pptx, compression device if she can tolerate. not on pharmacologic due to anemia requiring transfusion. dispo: back to SNF -- PT order placed per their request. Called her son, HCP Amarilys @ [phone], no response at this time, will try again.
[2020-06-13] MEDS: predniSONE 20 MG TABLET 40 MG PO (11:57)
[2020-06-13] MEDS: levoFLOXacin 250 MG TABLET PO (11:58)
[2020-06-13 12:00] VITALS: BP 147/92; PULSE 110; RESP 18; TEMP 36.4; O2SAT 95
--- NOTE | 2020-06-13 12:36 | P.PNNP_ITS ---
Subjective Subjective Interval history: seen and examined this AM Physical Exam Vital Signs: Vital Signs: Vital Signs Temp Pulse Resp BP Pulse Ox 06/13/20 12:00 97.6 F 110 H 18 147/92 H 95 06/13/20 08:04 103 H 130/88 06/13/20 07:49 97.6 F 103 H 18 130/88 96 06/13/20 03:25 97.8 F 97 19 126/74 99 06/12/20 23:24 97.5 F 91 19 126/83 99 06/12/20 20:07 103 H 125/81 06/12/20 19:56 97.3 F 103 H 18 125/81 96 06/12/20 16:00 98.0 F 110 H 18 127/69 99 Body Mass Index 20.0 Physical exam: Cvs: rrr, [id number] , no murmur res: clear to auscultation ,no rhonchii or wheezing abd: no rebound or guarding ,nt, bs present. ext pulses present , no cyanosis neuro: axo3 , nonfocal. 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 without any open sores and no cellulitis and no acrocyanosis abdomen benign no bruits no tenderness no again a megaly cardiac exam with normal S1 and normal S2 but no gallops or murmurs chest percussed equally with no clinical pleural effusion and no adventitious sounds General: cooperative, well developed, awake and ill appearing Nutritional Appearance: average body habitus Limitations: behavioral limitations and language barrier HENMT: Other: pupils were equal with eyes 1 wondering but no nystagmus and no ophthalmoplegia but no light reactivity Head: Yes normal to inspection Ears: hearing grossly normal bilaterally and external ears normal General nose exam: Normal external nose present Mouth: Normal oral and palatal mucosa present and oropharynx normal Throat: Yes posterior oropharynx normal Eyes: General: appearance normal, both eyes and all related structures Neck: Other: neck was supple with full range of motion Neck: Yes normal visual inspection Chest: Other: chest percussed equally with good bilateral breath sounds and no adventitious sounds Chest palpation & inspection: normal inspection of the chest Resp: Effort & Inspection: normal respiratory effort Auscultation: clear to auscultation bilaterally Percussion: percussion normal Cardio: Jugular venous distension: no JVD Palpation: normal PMI Rate: regular rate Rhythm: regular rhythm Heart sounds: S1 normal heart sound present, S2 normal heart sound present and no rubs GI: Inspection: Yes normal to inspection Palpation (GI): Soft to palpation, nontender and No hepatosplenomegaly present Percussion: Yes normal to percussion Auscultation: normal bowel sounds : General: Yes no CVA tenderness Back/Spine/Pelvis: Back: no CVA tenderness Skin: Other: scaling circular skin lesions improving General skin exam: scars ( scars noted diffusely on the body and extremities appearing to be healed s) Neuro: General: moves all extremities, CN's II-XI intact bilaterally and other ( left hemiparesis) Cranial nerves: Yes CN's II-XII intact bilaterally Motor exam (neuro): 5/5 motor strength present throughout and No Asterixis during motor activity present Sensory Exam: No Sensory deficit (Neuro) Extrem: Other: hemiparetic on left side General: Yes normal to inspection Psych: Appearance: grossly normal Assessment & Plan Assessment and plan (1) Anemia: Status: Acute (2) Klebsiella sepsis: Problem details: Resolving Klebsiella sepsis Improving Levaquin Status: Acute (3) Renal failure: Problem details: Has hemolytic anemia-lee ann positive No thrombocytopenia ; PTT was 74 and gradually normalizing UPCR 4.7 Status: Acute (4) Acute bullous dermatitis: Status: Acute (5) COVID-19: Problem details: Patient with antibodies Prior COVID Patient doesnt have acute disease and is not contagious May do procedures on patient Status: Acute Assessment and Plan: 1. NAZANIN: Scr grad improvement from 6.1 now 3.8-4.0 ..now Scr 4.3 still suspect close to her basl 2. Adv CKD: she has adv CKD and U/S reveals PKD 3. H/O pemphigus and mention made of Bullous lesions with IgA on Bx;rxn to tegretol and Sanya Kemal... 4. Anemia with abnl coags..coags resovled but cont anemia..will need procrit as outpt 5.AGMA and NAGMA: imporved after gentle IV NaHCO3 6. NRProteinuria: no kidney Bx given PKD 7. H/O COVID infection...doiubt COVID is directly impacted renal function rare reports of COVID assoc renal injury which may linger despite resolution of the original COVID infection ..AIN, AGN,in AA with apol 1 gene there have been cases of f collapsing FSGS Disc: putting the puzzle together seems that she had NAZANIN related to her severe infection w assoc ATN ontop of adv CKD from underlying PKD. REC: ok to d/c with close f/u as oupt in prep for SUPPLY AIDE ( I will arrange); start procrit ( if ok with Heme); check vit D and PTH ( I will order); no kidney Bx; p rotect non-dominant arm for future AVF; get rec from [facility] [place]; avoif NToxind;; cont PO NaHCO3 ( goal HCO3 > 24) Will follow closely with med team Time Spent With Patient Time: Total time spent is greater than 50% in coordination of care (as documented) at patient's floor/unit and/or counseling patient:
--- NOTE | 2020-06-13 12:45 | MHC.CM.PN ---
Per MD, Patient's Son asked that we speak with Patient's Brother @ [phone], who speaks better [email or web address] has left a message for [place], requesting a return call to discuss dc planning. Patient had been at [facility], but per MD, family is from the [facility] and wishes to find a facility closes to home. CM awaits a return call from [place].
[2020-06-13 13:16] VITALS: BP 147/92; PULSE 110; O2SAT 95
[2020-06-13 15:05] VITALS: BP 125/76; PULSE 98; RESP 18; TEMP 36.6; O2SAT 97
[2020-06-13 16:06] LABS: Glucose, Whole Blood 148 mg/dL (60-115)
--- NOTE | 2020-06-13 16:07 | PM.DS ---
DS: Providers Provider Date of admission: 06/02/20 05:01 Primary care physician: Unknown Physician Consults: 06/06/20 08:35 Consult to Hematology / Oncology Routine Consulting Provider: [facility] Reason for consultation: anemia /leucopenia -? hemolytic anemia also 06/06/20 08:36 Consult to Infectious Diseases Routine Consulting Provider: Aimee Coronel Reason for consultation: HX of Klebsella and mssa bactermia ,was on cefzolin Has provider been notified: No DS: Diagnosis Discharge Diagnosis (1) Klebsiella sepsis: Status: Acute (2) Renal failure: Status: Acute (3) Metabolic acidosis: Status: Acute (4) Hypernatremia: Status: Acute (5) Hyperkalemia: Status: Acute (6) Status epilepticus due to complex partial seizure: Status: Acute (7) Vivas-Kemal syndrome: Status: Acute (8) Anemia: Status: Acute DS: Summary Hospital Course Hospital Course: From the admission HPI done by the ICU team: This is a 51-year-old female who is originally from [facility], communication is limited due to language barrier and the lack of an licensed tax consultant at this point. 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 It is unclear to me how long she was at the rehab, she came to the emergency room with complaints of cough today and even though she was found to be overall hemodynamically stable with exception of a heart rate of 104, no fever or hypotension, hypoxia; her workup in the ER reveal significant renal failure with a creatinine of 6.1 and potassium 6.3, carbon dioxide less than 5, her blood gas reveals significant metabolic acidosis with pH of 7.1, pCO2 of 11, bicarb of 4. The EKG did not reveal any peaked T-waves. Patient did receive calcium gluconate, insulin, an amp of D50 and Kayexalate however this last she did not tolerate and vomited it out. Nephrology was contacted, repeat laboratories show worsening of her potassium at 6.5 and renal function of 6.42. Chest x-ray did not show any infiltrate. Lactic acid 1.8 Patient does have a central line (right subclavian) from previous admission to a hospital. She does appear tremor is and cold however she is not able to express her complaints at this point. We are awaiting her COVID test result; patient will be admitted to the ICU. Hospital Course by discharge diagnosis: 1. NAZANIN on CDK with metabolic acidsosis / hyperK patient was initially admitted to the intensive care unit for this and was started on a bicarb drip and was subsequently seen by Nephrology. She had her serum electrolytes and renal function monitored daily unfortunately with intravenous fluids her serum creatinine improved to her baseline. cause of her acute kidney injury was felt to be multifactorial. She will be discharged home with her usual meds, in addition her Lasix has been discontinued at this time. She will be followed up by Nephrology, Dr. Mcleod ([facility]). their office will arrange for appointment, however office can be called if no Appointment is made by next week. 2. Anemia again, multifactorial including her chronic kidney disease but compound by hemolytic anemia. Hematology was consulted and who recommended 40 mg of prednisone daily. She should have hemolysis labs checked next week and these can be sent to Dr. Grier at [facility] @ [phone] to guide appropriate tapering. 3.Recent Klebsiella sepsis / Bacteremia Patient was on Kefzol at the time of admission. While in the intensive care, was felt that Kefzol was contributing to her kidney disease/ hemolytic anemia and so this was discontinued instead she was treated with Levaquin. Infectious Disease consultation was sought and they were in agreement. Recommended 14 days of Levaquin, with end date of 06/19/2020. 4. Complex partial seizures, status epilepticus Patient was noted, again while in the intensive care, to have a left-sided focal seizure which was initially treated with Versed and then Keppra was initiated at 500 mg twice daily. She has responded well to this without any signs of allergic reaction. It was reported that the patient has a neurologist at [facility]. she can be seen in their office for follow-up in the coming weeks. If she does not have her own neurologist, she can be seen at [facility] neurology. 5. Recent Sanya Kemal syndrome Stable in the hospital, no acute changes. Can continue the management that she was receiving prior to to hospitalization. Time Spent with Patient Time attestation: Total time spent providing and/or coordinating discharge services: Physical Exam Vital Signs: Vital Signs: Last Vital Signs Temp 97.9 F 11/05/20 15:05 Pulse 98 06/13/20 15:05 Resp 18 06/13/20 15:05 BP 125/76 06/13/20 15:05 Pulse Ox 97 06/13/20 15:05 Body Mass Index 20.0 General - no acute distress, appears comfortable Cardiovascular - s1s2 Lungs - non-labored breathing Abdomen - soft, nontender, no rebound regarding Extremities - no edema bilaterally Neuro - awake and alert, no focal deficits skin - +rash DS: Data Data Completed and Pending Labs on day of discharge: 06/01/20 19:04 Basic Metabolic Panel Stat 06/01/20 19:05 XR chest 2V Stat Complete Blood Count Auto Diff Stat 06/01/20 20:19 SARS-COV-2 PCR Stat 06/02/20 ECG 12 lead EKG Routine 06/02/20 01:52 Continuous Cardiac Monitoring NOW 06/02/20 02:04 Lactic Acid Stat 06/02/20 02:18 Arterial Blood Gas Routine 06/02/20 02:37 Calcium Gluconate/NaCl,Iso-Osm [Calcium Gluconate] 1 gm in 50 ml IV ONCE Dextrose 50 % [D50] 25 gm IVPUSH ONCE ONE Insulin Regular, Human [Humulin R] 5 unit IVPUSH ONCE ONE 06/02/20 02:39 Sodium Polystyrene Sulfon/Sorb [Kayexalate] 60 gm PO ONCE ONE 06/02/20 02:59 Dextrose 5 % [D5w] 850 ml Sodium Bicarbonate 8.4% 150 meq IV 50 mls/hr 06/02/20 03:00 BMP [Basic Metabolic Panel] Stat Magnesium Stat SARS COV2 IgG Stat 06/02/20 03:14 Sodium Bicarbonate 8.4% 50 meq .ROUTE .STK-MED ONE 06/02/20 03:20 EKG Documentation DIRECTED 06/02/20 03:59 ondansetron HCL [Zofran] 4 mg IVPUSH ONCE ONE 06/02/20 04:00 ondansetron HCL [Zofran] 4 mg .ROUTE .STK-MED ONE 06/02/20 04:44 Beta-Hydroxybutyrate Stat 06/02/20 04:58 SARS COV2 PCR INHOUSE Stat 06/02/20 05:01 Cont. Telemetry w/Vital Sign limit ICU Q4HR Intake and Output Q1HR Vital Signs Q1HR Albuterol Sulfate (0.083%) [Ventolin (0.083%)] 10 mg INHALE STAT STA Sodium Polystyrene Sulfon/Sorb [Kayexalate] 60 gm PO STAT STA 06/02/20 05:09 Transfer Order Routine 06/02/20 05:18 ondansetron HCL [Zofran] 4 mg IVPUSH ONCE ONE 06/02/20 05:25 Sodium Bicarbonate 8.4% 50 meq IV STAT STA 06/02/20 05:37 Sodium Bicarbonate 8.4% 50 meq .ROUTE .STK-MED ONE 06/02/20 05:44 Metoprolol Tartrate [Lopressor] 5 mg 0.9 % Sodium Chloride [Ns] 50 ml IV STAT 06/02/20 05:52 Metoprolol Tartrate [Lopressor] 5 mg 0.9 % Sodium Chloride [Ns] 50 ml IVPUSH STAT 06/02/20 05:59 Metoprolol Tartrate [Lopressor] 5 mg .ROUTE .STK-MED ONE 06/02/20 06:00 Heparin Sodium,Porcine 5,000 unit SUBCUT Q12H 06/02/20 06:02 Metoprolol Tartrate [Lopressor] 5 mg IVPUSH ONCE ONE 06/02/20 06:30 Pantoprazole Sodium [Protonix] 40 mg IVPUSH DAILY@0630 06/02/20 07:17 C Reactive Protein Routine Comprehensive Met. Panel DAILY@0600 Ferritin Routine 06/02/20 08:14 Add Laboratory Test Stat 06/02/20 08:43 D Dimer Stat 06/02/20 09:21 Sodium Bicarbonate 8.4% 50 meq IVPUSH ONCE ONE 06/02/20 09:54 EKG Documentation DIRECTED 06/02/20 10:45 Dextrose 5 % [D5w] 950 ml Sodium Bicarbonate 8.4% 50 meq IV 100 mls/hr 06/02/20 11:30 Dextrose 5 % [D5w] 900 ml Sodium Bicarbonate 8.4% 100 meq IV 200 mls/hr 06/02/20 12:53 diphenhydrAMINE HCL [Benadryl] 25 mg PO TID PRN ondansetron ODT [Zofran ODT] 4 mg TRANSLINGU Q6H PRN 06/02/20 13:17 Complete Blood Count no Diff Urgent Comprehensive Met. Panel Urgent Prothrombin Time INR Urgent Venous Blood Gas Urgent 06/02/20 14:30 Dextrose 5 % [D5w] 1,000 ml IVCONT 200 mls/hr 06/02/20 14:45 Creatinine Urine Stat Sodium Urine Random Urgent 06/02/20 15:00 Sodium Bicarbonate [Neut] 650 mg PO TID hydrOXYzine HCL [Atarax] 25 mg PO TID 06/02/20 16:00 Phytonadione (Vit K1) [Vitamin K] 10 mg 0.9 % Sodium Chloride [Ns] 50 ml IV Q12H ceFAZolin Sodium/Dextrose,Iso [Ancef] 2 gm in 50 ml IV Q12H 06/02/20 16:30 Omeprazole [PriLOSEC] 20 mg PO BID@0630,1630 06/02/20 16:58 Phytonadione (Vit K1) [Vitamin K] 10 mg IV .STK-MED ONE 06/02/20 20:17 Basic Metabolic Panel Urgent Phosphorus Urgent 06/02/20 21:00 Baclofen [Lioresal] 5 mg PO BID 06/03/20 CT head/brain wo con Stat XR chest 1V Stat US carotid duplex LT Stat 06/03/20 03:12 predniSONE 20 mg PO ONCE ONE 06/03/20 05:37 Basic Metabolic Panel Routine Complete Blood Count Auto Diff Routine Phosphorus Routine SLIDE REVIEW Routine Vitamin D 25-OH Total Routine 06/03/20 06:49 PTHI Routine 06/03/20 07:40 Venous Blood Gas AM 06/03/20 08:02 Midazolam HCl [Versed] 10 mg IVPUSH .STK-MED ONE 06/03/20 08:43 levETIRAcetam in NaCl (iso-os) [Keppra] 1,000 mg in 100 ml IV ONCE 06/03/20 08:44 Midazolam HCl/PF [Versed] 5 mg IVPUSH ONCE ONE 06/03/20 08:45 Calcium Gluconate/NaCl,Iso-Osm [Calcium Gluconate] 1 gm in 50 ml IV ONCE 06/03/20 08:52 Midazolam HCl/PF [Versed] 2 mg IVPUSH .STK-MED ONE 06/03/20 09:00 Loratadine [Claritin] 10 mg PO DAILY Sertraline HCL [Zoloft] 50 mg PO DAILY polyethylene glycoL 3350 [Miralax] 17 gm PO DAILY 06/03/20 09:06 Midazolam HCl/PF [Versed] 2 mg IVPUSH .STK-MED ONE 06/03/20 09:56 Measure CVP QSHIFT 06/03/20 10:12 Erythrocyte Sedimentation Rate Stat Partial Thromboplastin Time Stat Prothrombin Time INR Stat 06/03/20 11:00 Lactated Ringers [Lr] 1,000 ml Potassium Chloride 20 meq IVCONT 42 mls/hr 06/03/20 11:05 levoFLOXacin/D5W [Levaquin] 500 mg in 100 ml IV ONCE 06/03/20 11:15 Add Laboratory Test Routine 06/03/20 11:33 Cyclospora & Isospora Stool Routine Giardia Ag Stool EIA Routine 06/03/20 11:47 CA echo limited Routine 06/03/20 15:09 Phytonadione (Vit K1) [Vitamin K] 10 mg IV .STK-MED ONE 06/03/20 16:13 Basic Metabolic Panel Routine 06/03/20 16:22 Leukocytes Stool Qualitative Routine OBSX1 Routine 06/03/20 17:15 levETIRAcetam in NaCl (iso-os) [Keppra] 500 mg in 100 ml IV Q12H 06/03/20 17:53 Calcium Gluconate/NaCl,Iso-Osm [Calcium Gluconate] 1 gm in 50 ml IV ONCE 06/04/20 04:39 Complete Blood Count Auto Diff DAILY@0600 Prothrombin Time INR DAILY@0600 SLIDE REVIEW Routine Venous Blood Gas Routine 06/04/20 04:40 Albumin Level Routine Basic Metabolic Panel DAILY@0600 Magnesium Routine Phosphorus Routine Rheumatoid Factor Routine 06/04/20 06:03 Direct Zaynab (JOEL) Stat Type and Screen Stat 06/04/20 06:36 MAYLIN Reflex Titer and Pattern Stat ANCA Vasculitides Stat Protein Electrophoresis, Serum Stat Protein Electrophoresis,Ran Ur Stat 06/04/20 06:49 Magnesium Sulfate/H2O 2 gm in 50 ml IV ONCE Potassium Chloride/H20 20 meq in 100 ml IV ONCE 06/04/20 10:24 Creatinine Urine Routine Total Protein Urine Random Routine 06/04/20 10:25 Urine Eosinophil Routine 06/04/20 15:40 Complete Blood Count Auto Diff Urgent SLIDE REVIEW Urgent 06/04/20 15:44 Mixing Study (PT/PTT) Urgent 06/05/20 04:46 Complete Blood Count Auto Diff DAILY@0600 Comprehensive Met. Panel Routine D Dimer Routine Magnesium Routine Partial Thromboplastin Time Routine Phosphorus Routine Prothrombin Time INR Routine SLIDE REVIEW Routine Venous Blood Gas Routine 06/05/20 08:10 Transfer Order Routine 06/05/20 10:23 Protein Electrophoresis,Ran Ur Routine 06/05/20 11:00 levoFLOXacin/D5W [Levaquin] 250 mg in 50 ml IV Q48H 06/05/20 11:40 Complement Total CH50 Routine 06/05/20 11:41 ANCA Vasculitides Routine Complement C3 Routine Complement C4 Routine Protein Electrophoresis, Serum Routine 06/06/20 05:00 levETIRAcetam [Keppra] 500 mg 0.9 % Sodium Chloride [Ns] 100 ml IV Q12H 06/06/20 05:44 Creatinine Urine Routine Magnesium, Random Urine Routine 06/06/20 06:01 Basic Metabolic Panel DAILY@0600 Complete Blood Count no Diff DAILY@0600 Ferritin Routine IRON PROFILE Routine Lactate Dehydrogenase Routine Lactate Dehydrogenase Routine Partial Thromboplastin Time Routine Prothrombin Time INR DAILY@0600 06/06/20 07:12 Immunofixation Pnl, Serum Routine Reticulocyte Count Routine Vitamin B12 and Folate Routine 06/06/20 08:09 Glucose, Whole Blood Routine 06/06/20 08:35 Sodium Polystyrene Sulfon/Sorb [Kayexalate] 15 gm PO ONCE ONE 06/06/20 Breakfast Diabetic Diet 06/06/20 10:45 calcitriol Oral Soln [Rocaltrol Oral Soln] 0.5 mcg PO DAILY 06/06/20 11:53 Glucose, Whole Blood Routine 06/06/20 17:37 Add Laboratory Test Routine 06/07/20 05:00 levETIRAcetam in NaCl (iso-os) [Keppra] 500 mg in 100 ml IV Q12H 06/07/20 05:52 Basic Metabolic Panel DAILY@0600 Complete Blood Count no Diff DAILY@0600 06/07/20 11:19 CDiff with Reflex to PCR Urgent 06/07/20 Lunch Diabetic Diet 06/07/20 16:30 Red Blood Cells Routine Type and Screen Urgent 06/07/20 20:46 Glucose, Whole Blood Routine 06/08/20 06:50 Complete Blood Count no Diff DAILY 06/08/20 07:35 Glucose, Whole Blood Routine 06/08/20 10:54 Glucose, Whole Blood Routine 06/08/20 16:47 Basic Metabolic Panel Routine Liver Panel Routine 06/08/20 20:36 Glucose, Whole Blood Routine 06/09/20 08:02 Glucose, Whole Blood Routine 06/09/20 08:25 Haptoglobin Routine Hemoglobin and Hematocrit Urgent Lactate Dehydrogenase Routine 06/09/20 11:14 Glucose, Whole Blood Routine 06/09/20 12:23 Add Laboratory Test Urgent 06/09/20 15:07 Add Laboratory Test Routine 06/09/20 15:50 Other Ref Test - Misc Routine 06/09/20 16:12 Glucose, Whole Blood Routine 06/09/20 20:46 Glucose, Whole Blood Routine 06/10/20 US renal BI Urgent 06/10/20 05:52 Basic Metabolic Panel DAILY@0600 Hemoglobin and Hematocrit DAILY@0600 06/10/20 08:53 Glucose, Whole Blood Routine 06/10/20 09:23 Partial Thromboplastin Time Urgent Prothrombin Time INR Urgent 06/10/20 11:07 Glucose, Whole Blood Routine 06/10/20 Lunch NPO Diet 06/10/20 16:04 Glucose, Whole Blood Routine 06/10/20 17:00 Dextrose 5 % [D5w] 900 ml Sodium Bicarbonate 8.4% 100 meq IVPUSH 50 mls/hr 06/10/20 20:16 Glucose, Whole Blood Routine 06/11/20 05:39 Type and Screen Routine Basic Metabolic Panel DAILY@0600 Complete Blood Count no Diff DAILY@0600 Partial Thromboplastin Time Routine Prothrombin Time INR DAILY@0600 06/11/20 07:38 Glucose, Whole Blood Routine 06/11/20 Breakfast Diabetic Diet 06/11/20 11:39 Glucose, Whole Blood Routine 06/11/20 11:59 Creatinine Urine Stat Total Protein Urine Random Stat 06/11/20 16:18 Glucose, Whole Blood Routine 06/11/20 17:12 Calcium Carbonate [Os-Daniel] 1,000 mg PO ONCE ONE 06/11/20 21:28 Glucose, Whole Blood Routine 06/12/20 05:45 Basic Metabolic Panel DAILY Complete Blood Count no Diff DAILY@0600 PTT [Partial Thromboplastin Time] Routine Prothrombin Time INR DAILY@0600 06/12/20 07:20 Glucose, Whole Blood Routine 06/12/20 11:31 Glucose, Whole Blood Routine 06/12/20 16:42 Glucose, Whole Blood Routine 06/12/20 21:19 Glucose, Whole Blood Routine 06/13/20 05:55 Basic Metabolic Panel DAILY@0600 Complete Blood Count Auto Diff DAILY@0600 SLIDE REVIEW Routine 06/13/20 07:22 Glucose, Whole Blood Routine 06/13/20 11:01 Glucose, Whole Blood Routine 06/13/20 16:03 Glucose, Whole Blood Routine Laboratory Last Values WBC 6.5 X10*3/uL (4.8-10.8) 06/13/20 05:55 RBC 2.72 X10*6/uL (4.20-5.50) L 06/13/20 05:55 Hgb 7.9 g/dl (12.0-16.0) L 06/13/20 05:55 Hct 24.6 % (37-47) L 06/13/20 05:55 MCV 90.4 fL (80-98) 06/13/20 05:55 MCH 29.0 pg (27.0-33.0) 06/13/20 05:55 MCHC 32.1 g/dl (31.0-35.0) 06/13/20 05:55 RDW 15.1 % (11.0-16.0) 06/13/20 05:55 Plt Count 195 X10*3/uL (160-400) 06/13/20 05:55 MPV 12.9 fL (9.4-12.3) H 06/13/20 05:55 Immature Gran % (Auto) 1.8 % (0.0-0.4) H 06/13/20 05:55 Neut % (Auto) 45.4 % (45-73) 06/13/20 05:55 Lymph % (Auto) 28.0 % (20-40) 06/13/20 05:55 [place] % (Auto) 12.6 % (2-11) H 06/13/20 05:55 Eos % (Auto) 11.7 % (0-4) H 06/13/20 05:55 Baso % (Auto) 0.5 % (0-2) 06/13/20 05:55 Lymph # (Auto) 1.8 X10*3/uL (1.2-4.9) 06/13/20 05:55 [place] # (Auto) 0.8 X10*3/uL (0.1-1.2) 06/13/20 05:55 Eos # (Auto) 0.8 X10*3/uL (0.0-0.4) H 06/13/20 05:55 Baso # (Auto) 0.0 X10*3/uL (0.0-0.2) 06/13/20 05:55 Abs Immat Gran (auto) 0.12 X10*3/uL (0.00-0.03) H 06/13/20 05:55 Absolute Neuts (auto) 3.0 X10*3/uL (2.0-8.3) 06/13/20 05:55 Absolute Nucleated RBC 0.000 X10*3/uL (0.0-0.012) 06/13/20 05:55 Nucleated RBC % (auto) 0.0 /100WBC (0.0-0.2) 06/13/20 05:55 Smear Tech's Comments VERIFIED 06/13/20 05:55 Smear Path Review SEE NOTE 06/04/20 04:39 ESR 101 MM/HR (0-20) H 06/03/20 10:12 Absolute Retic 0.009 X10*6/uL (0.026-0.095) L 06/06/20 07:12 Percent Retic 0.3 % (0.5-1.8) L 06/06/20 07:12 Immature Retic Fraction 3.4 % (3.0-15.9) 06/06/20 07:12 Retic Hgb Equivalent 29.2 pg (30.0-35.0) L 06/06/20 07:12 Haptoglobin 244 mg/dL (43-212) H 06/09/20 08:25 PT 13.8 SEC (10.8-13.0) H 06/12/20 05:45 INR 1.2 (0.9-1.1) H 06/12/20 05:45 APTT 32.5 SEC (24.1-38.0) 06/12/20 05:45 PT Mixing Study 11.3 sec (9.0-11.5) 06/04/20 15:44 PT Normal Plasma Immed TNP 06/04/20 15:44 PTT Mixing Study 64 sec (< OR = 40) H 06/04/20 15:44 PTT Normal Plasma Immed CORRECTED 06/04/20 15:44 PTT Normal Plasma Post CORRECTED 06/04/20 15:44 Mixing Interpretation SEE NOTE 06/04/20 15:44 D-Dimer 580 NG/ML 06/05/20 04:46 ABG pH 7.13 (7.35-7.45) L* 06/02/20 02:18 ABG pCO2 11 mmhg (32-45) L* 06/02/20 02:18 ABG pO2 135 mmhg (83-108) H 06/02/20 02:18 ABG HCO3 4 mmol/l (22-26) L 06/02/20 02:18 ABG O2 Saturation 98.3 % 06/02/20 02:18 ABG Base Excess -23.5 06/02/20 02:18 VBG pH 7.35 (7.32-7.43) 06/05/20 04:46 VBG pCO2 24 mmhg 06/05/20 04:46 VBG Oxygen Liters/Min TNP 06/05/20 04:46 VBG pO2 36 mmhg 06/05/20 04:46 VBG HCO3 13 mmol/L 06/05/20 04:46 VBG O2 Saturation 71.2 % 06/05/20 04:46 VBG Base Excess -11.3 mmol/L 06/05/20 04:46 Oxygen Given ROOM AIR 06/02/20 02:18 Sodium 139 mmol/L (135-145) 06/13/20 05:55 Potassium 3.8 mmol/l (3.3-5.1) 06/13/20 05:55 Chloride 100 mmol/L (96-108) 06/13/20 05:55 Carbon Dioxide 27 mmol/L (22-29) 06/13/20 05:55 Anion Gap 16 (12-20) 06/13/20 05:55 BUN 24 mg/dL (9-16) H 06/13/20 05:55 Creatinine 4.34 mg/dL (0.5-1.4) H* 06/13/20 05:55 Estim Creat Clear Calc 12.2 06/13/20 05:55 Estimated GFR 10 06/13/20 05:55 POC Glucose 148 mg/dL (60-115) H 06/13/20 16:03 Random Glucose 113 mg/dL (60-115) 06/13/20 05:55 Lactic Acid 1.8 mmol/L (0.5-2.0) 06/02/20 02:04 Calcium 7.5 mg/dL (8.4-10.2) L 06/13/20 05:55 Phosphorus 3.4 mg/dL (2.7-4.5) 06/05/20 04:46 Magnesium 1.9 mg/dL (1.6-2.6) 06/05/20 04:46 Iron 101 mcg/dL (30-160) 06/06/20 06:01 TIBC 150 mcg/dL (228-428) L 06/06/20 06:01 % Saturation 67 % (15-50) H 06/06/20 06:01 Unsat Iron Binding 49 ug/dL 06/06/20 06:01 Ferritin 7033 ng/mL (10-250) H 06/06/20 06:01 Total Bilirubin < 0.2 mg/dL (0.0-1.0) 06/08/20 16:47 Direct Bilirubin < 0.2 mg/dL (0.0-0.5) 06/08/20 16:47 AST 8 U/L (5-31) 06/08/20 16:47 ALT < 6 U/L (0-31) 06/08/20 16:47 Alkaline Phosphatase 102 U/L (39-117) 06/08/20 16:47 Lactate Dehydrogenase 308 U/L (122-220) H 06/09/20 08:25 C-Reactive Protein 1.13 mg/dL (< or = 0.50) H 06/02/20 07:17 Total Protein 6.7 g/dL (6.5-8.0) 06/08/20 16:47 Total Protein (PEP) 6.9 g/dL (6.1-8.1) 06/05/20 11:41 Albumin 3.0 g/dL (3.5-5.0) L 06/08/20 16:47 Albumin (PEP) 2.8 g/dL (3.8-4.8) L 06/05/20 11:41 Tpkqx-8-Wxzlfwkgh 0.5 g/dL (0.2-0.3) H 06/05/20 11:41 Rzgda-1-Ktywcdefw 0.8 g/dL (0.5-0.9) 06/05/20 11:41 Eqmf-7-Jaxhmtwm 0.2 g/dL (0.4-0.6) L 06/05/20 11:41 Trzg-8-Tfjmzfhf 0.5 g/dL (0.2-0.5) 06/05/20 11:41 Gamma Globulins 2.1 g/dL (0.8-1.7) H 06/05/20 11:41 Abnorm Protein Band 1 TNP 06/05/20 11:41 Abnorm Protein Band 2 TNP 06/05/20 11:41 Abnorm Protein Band 3 TNP 06/05/20 11:41 PEP Interpretation SEE NOTE 06/05/20 11:41 Vitamin B12 937 pg/mL (200-900) H 06/06/20 07:12 25-OH Vitamin D Total 9.5 ng/mL (>30) 06/03/20 05:37 Folate 7.1 ng/mL (> or = 4.0) 06/06/20 07:12 Beta-Hydroxybutyrate/Acetoacetate 0.84 mmol/L H 06/02/20 04:44 PTH Intact 213 pg/mL (14-64) H 06/03/20 06:49 Calcium (PTH Intact) 6.4 mg/dL (8.6-10.4) L 06/03/20 06:49 Urine Color YELLOW 06/11/20 11:50 Urine Appearance HAZY 06/11/20 11:50 Urine pH 7.5 (5.0-8.0) 06/11/20 11:50 Ur Specific [place] 1.020 (1.005-1.025) 06/11/20 11:50 Urine Protein 2+ MG/DL (NEG-TRACE) H 06/11/20 11:50 Urine Glucose (UA) 100 MG/DL (NEG) H 06/11/20 11:50 Urine Ketones 5 MG/DL (NEG) 06/11/20 11:50 Urine Blood 1+ (NEG) H 06/11/20 11:50 Urine Nitrite NEG (NEG) 06/11/20 11:50 Ur Leukocyte Esterase 3+ (NEG) H 06/11/20 11:50 Urine RBC 1-4 /HPF (0) 06/11/20 11:50 Urine WBC 50-75 /HPF (0-4) H 06/11/20 11:50 Ur WBC Total Counted 100 CELLS 06/04/20 10:25 Ur Squamous Epith Cells 1+ /LPF 06/11/20 11:50 Urine Bacteria 3+ /LPF 06/11/20 11:50 Urine Eosinophils 1 CELLS 06/04/20 10:25 Urine Eosinophils % 1.0 % 06/04/20 10:25 Ur Random Creatinine 40 mg/dL (20-275) 06/06/20 05:44 U Random Total Protein 151 mg/dL (<12) H 06/11/20 11:59 U [place] Prot/Creat Ratio 4.605 (0.021-0.161) H 06/06/20 05:44 Ur Random Sodium 97.0 mmol/L 06/02/20 14:45 Ur Random Magnesium 95 mg/g creat (22-130) 06/06/20 05:44 Urine Creatinine 53.26 mg/dL 06/11/20 11:59 Ur Creatinine mg/dL 43 mg/dL (20-275) 06/06/20 05:44 U Total Protein mg/dL 198 mg/dL (5-24) H 06/06/20 05:44 Protein/Creatinin Ratio 4605 mg/g creat (21-161) H 06/06/20 05:44 Urine Albumin (%) 38 % 06/06/20 05:44 U Gesjy-0-Iufkhxid (%) 6 % 06/06/20 05:44 U Nnkmw-0-Himddwpl (%) 16 % 06/06/20 05:44 U Beta Globulin (%) 17 % 06/06/20 05:44 U Gamma Globulin (%) 23 % 06/06/20 05:44 U Abnormal Prot Band 1 TNP 06/06/20 05:44 U Abnormal Prot Band 2 TNP 06/06/20 05:44 U Abnormal Prot Band 3 TNP 06/06/20 05:44 Urine PEP Interpret 06/06/20 05:44 Stool Occult Blood POS (NEG) 06/03/20 16:22 Stool Leukocytes, Qual NEGATIVE (NEGATIVE) 06/03/20 16:22 Stl Isospora & Cyclospora SEE NOTE 06/03/20 11:33 Stl Giardia Antigen SEE NOTE 06/03/20 11:33 IgG Total 2192 mg/dL (600-1640) H 06/06/20 07:12 IgA Total 295 mg/dL (47-310) 06/06/20 07:12 IgM 80 mg/dL (50-300) 06/06/20 07:12 DEBI Interpretation SEE NOTE 06/06/20 07:12 Rheumatoid Factor < 15.0 IU/mL (<15.0) 06/04/20 04:40 MAYLIN Screen NEGATIVE (NEGATIVE) 06/04/20 06:36 MAYLIN Titer TNP 06/04/20 06:36 MAYLIN Pattern TNP 06/04/20 06:36 Proteinase 3 (PR3) Ab <1.0 AI 06/05/20 11:41 Myeloperoxidase Ab <1.0 AI 06/05/20 11:41 Complement C3 128 mg/dL (83-193) 06/05/20 11:41 Complement C4 58 mg/dL (15-57) H 06/05/20 11:41 Tot Complement (CH50) >60 U/mL (31-60) H 06/05/20 11:40 C. difficile Toxin A&B Negative (Negative) 06/08/20 00:54 C. difficile Antigen Negative (Negative) 06/08/20 00:54 C. difficile Interpret SEE NOTE 06/08/20 00:54 Coronavirus (PCR) POSITIVE (Negative) A 06/02/20 04:58 COVID-19 PCR NOT DETECTED (NOT DETECTED) 06/01/20 20:19 SARS-CoV-2 IgG Ab Positive (Negative) 06/02/20 03:00 Ref Lab Test Result SEE NOTE 06/09/20 15:50 Blood Type O Positive 06/11/20 05:39 Antibody Screen NEGATIVE 06/11/20 05:39 Direct Antiglob Test POSITIVE H 06/04/20 06:03 JOEL, Polyspecific POSITIVE H 06/04/20 06:03 Crossmatch See Detail 06/07/20 16:30 Discharge Plan Discharge Patient Disposition: [facility] Referrals: [facility] [Outside] Vito Grier MD [Physician] - (Fax Blood work results to Dr. Grier @ [phone]) Avi Mcleod MD [Physician] - (Call office for f/u next week) Physician,Unknown [Primary Care Provider] - Discharge Medications: New levetiracetam 500 mg Tablet 500 mg PO BID 60 Days Qty: 120 RF: 0 prednisone 20 mg Tablet 40 mg PO DAILY 14 Days Qty: 28 RF: 0 levofloxacin 250 mg Tablet 250 mg PO Q48H 4 Days Qty: 2 RF: 0 calcitriol 1 mcg/mL Solution 0.5 mcg PO DAILY 30 Days Qty: 15 RF: 0 Continued acetaminophen 325 mg Tablet 975 mg PO TID RF: 0 acetaminophen 325 mg Tablet 650 mg PO Q6H PRN (Reason: Pain) RF: 0 carvedilol [Coreg] 12.5 mg Tablet 12.5 mg PO BID RF: 0 dextrose [Glucose Gel] 40 % Gel 15 g PO Q15M PRN (Reason: Hypoglycemia) RF: 0 fexofenadine 180 mg Tablet 180 mg PO DAILY RF: 0 famotidine 20 mg Tablet 20 mg PO BID RF: 0 magnesium hydroxide [Milk of Magnesia] 400 mg/5 mL Suspension 10 ml PO DAILY PRN (Reason: Constipation) RF: 0 sodium bicarbonate 650 mg Tablet 650 mg PO TID RF: 0 amlodipine 10 mg Tablet 10 mg PO DAILY RF: 0 bisacodyl 10 mg Suppository 10 mg AK DAILY PRN (Reason: Constipation) RF: 0 diphenhydramine HCl 25 mg Capsule 25 mg PO TID PRN (Reason: Itching) RF: 0 Fleet Enema 19-7 gram/118 mL Enema 118 ml AK DAILY PRN (Reason: Constipation) RF: 0 omeprazole 20 mg Capsule,Delayed Release(Dr/Ec) 20 mg PO BID RF: 0 hydroxyzine HCl 25 mg Tablet 25 mg PO TID RF: 0 polyethylene glycol 3350 [Miralax] 17 gram/dose Powder 17 g PO DAILY RF: 0 ondansetron 4 mg Tablet,Disintegrating 4 mg PO Q6H PRN (Reason: Nausea) RF: 0 sertraline [Zoloft] 50 mg Tablet 50 mg PO DAILY RF: 0 melatonin 5 mg Capsule 5 mg PO BEDTIME RF: 0 baclofen 5 mg Tablet 5 mg PO BID RF: 0 calcium acetate 667 mg Tablet 1,334 mg PO TID RF: 0 glucagon 1 mg Kit 1 mg NEEDED RF: 0 sennosides [senna] 8.6 mg Tablet 8.6 mg PO DAILY PRN (Reason: Constipation) RF: 0 Discontinued furosemide [Lasix] 20 mg Tablet 20 mg PO DAILY RF: 0 cefazolin in 0.9% sod chloride 2 gram/100 mL Solution 100 ml IV BID RF: 0 Discharge Orders: Discharge Order (Routine); Ordered 06/13/20 Ordered By: Geo Richards Diet: advance to your usual diet Activity on Discharge: As tolerated Visit Report Forms: Patient Portal Discharge page Care Plan Goals: To get better, finish rehab and return home to my family. 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
--- NOTE | 2020-06-13 16:07 | MHC.CM.PN ---
CM spoke with Patient's Brother/[place] @ [phone], at Son/HCP/Dustinpramod's request ([phone]). Patient will return to [facility] today at 6 PM, via [facility]. Patient and family are aware of and in agreement with the dc plan.
[2020-06-13 17:51] LABS: Calcium (PTHI) 8.3 mg/dL (8.6-10.4); PTHI 83 pg/mL (14-64)
== END 2020-06-13 18:45 | disposition skilled nursing facility (03) | DRG 720 ==
LOC: HO.ED 06-02 04:56 → HO.ICU 06-02 05:29 → HO.IMC 06-05 10:37
PROVIDERS: Emergency Medicine; Internal Medicine; Internal Medicine Cardiovascular Disease; Internal Medicine Hypertension Specialist; Internal Medicine Medical Oncology; Internal Medicine Nephrology; Physician Assistant Medical; Registered Nurse Community Health; Admitting Provider Anesthesiology; Emergency Provider Emergency Medicine Emergency Medical Services; Visit Provider Family Medicine
DX: A41.59 Other Gram-negative sepsis (principal); U07.1 COVID-19; L51.1 Stevens-Johnson syndrome; D61.818 Other pancytopenia; N17.9 Acute kidney failure, unspecified; I12.0 Hypertensive chronic kidney disease with stage 5 chronic kidney disease or end stage renal disease; N18.5 Chronic kidney disease, stage 5; E87.0 Hyperosmolality and hypernatremia; G40.201 Localization-related (focal) (partial) symptomatic epilepsy and epileptic syndromes with complex partial seizures, not intractable, with status epilepticus; L13.9 Bullous disorder, unspecified; B96.1 Klebsiella pneumoniae [K. pneumoniae] as the cause of diseases classified elsewhere; D63.1 Anemia in chronic kidney disease; E87.2 Acidosis; E83.51 Hypocalcemia; E86.0 Dehydration; Q61.3 Polycystic kidney, unspecified; Z79.899 Other long term (current) drug therapy
CPT/HCPCS: 36415; 70450; 71045; 71046; 76775; 80048; 80053; 80076; 81001; 82010; 82040; 82272; 82306; 82570; 82607; 82728; 82746; 82784; 82803; 82947; 83010; 83540; 83605; 83615; 83735; 83970; 84100; 84155; 84156; 84165; 84166; 84300; 85014; 85018; 85025; 85027; 85045; 85060; 85379; 85610; 85611; 85652; 85730; 85732; 86021; 86038; 86039; 86140; 86160; 86162; 86334; 86431; 86769; 86850; 86880; 86900; 86901; 86920; 86923; 87015; 87207; 87324; 87329; 87449; 87635; 89055; 89190; 93005; 93308; 93882; 96365; 96366; 96375; 96376; 97162; 99225; 99232; 99285; 99291; J0610; J0690; J1953; J1956; J2405; J3430; J3475; P9016; Q0163